=== PATIENT | male | born 1955 | race Caucasian/White ===

== ENCOUNTER 2016-11-07 08:27 | Emergency (ER) | payer MEDICAID, OTHER ==
[~2016-11-07 08:27] MED LIST: ZOFR4TAB3 SL
[2016-11-07 08:29] VITALS: BP 131/75; PULSE 95; RESP 14; TEMP 98.2; O2SAT 98
[2016-11-07 09:18] LABS: AUTOMATED NEUTROPHIL # 5.3 TH/MM3 (1.8-7.7); BASOPHIL # 0.1 TH/MM3 (0-0.2); EOSINOPHIL # 0.1 TH/MM3 (0-0.4); EOSINOPHIL % 1.5 % (0.0-4.0); HEMATOCRIT 39.8 % (39.0-51.0); HEMO FLAGS DIFF FINAL; LYMPH % 21.7 % (9.0-44.0); LYMPHOCYTE # 1.7 TH/MM3 (1.0-4.8); MEAN CELL VOLUME 102.1 FL (80.0-100.0); MEAN CORPUSCULAR HEMOGLOBIN 34.8 PG (27.0-34.0); MEAN CORPUSCULAR HGB CONC 34.1 % (32.0-36.0); NEUT % 67.8 % (16.0-70.0); PLATELET COUNT 211 TH/MM3 (150-450); RED CELL DISTRIBUTION WIDTH 14.2 % (11.6-17.2); WHITE BLOOD COUNT 7.8 TH/MM3 (4.0-11.0)
[2016-11-07] MEDS ORDERED: FAMOTIDINE 20 MG TAB PO ONE (09:30)
[2016-11-07] MEDS ORDERED: ACETAMINOPHEN/HYDROcodone 325 MG/5 MG TAB PO ONE (09:30)
[2016-11-07 09:37] VITALS: BP 165/80; PULSE 77; RESP 16; O2SAT 98
[2016-11-07 09:56] LABS: ALKALINE PHOSPHATASE 122 U/L (45-117); ALT (GPT) 69 U/L (12-78); ANION GAP 7 MEQ/L (5-15); AST (GOT) 109 U/L (15-37); BICARBONATE 25.7 MEQ/L (21.0-32.0); BLOOD UREA NITROGEN 10 MG/DL (7-18); CHLORIDE 104 MEQ/L (98-107); GLOMERULAR FILTRATION RATE 105 ML/MIN (>89); SODIUM (NA) 137 MEQ/L (136-145); TOTAL BILIRUBIN ADULT 1.1 MG/DL (0.2-1.0)
[2016-11-07 09:59] LABS: POTASSIUM 3.8 MEQ/L (3.5-5.1)
[2016-11-07] MEDS ORDERED: ZOFR4TAB PO (10:32)
[2016-11-07] MEDS ORDERED: RANI150T PO (10:32)
--- NOTE | 2016-11-07 10:32 | PD ---
HPI Chief Complaint: GI Complaint Time Seen by Provider: 09:18 Travel History International Travel<30 days: No Contact w/Intl Traveler<30days: No Traveled to known affect area: No History of Present Illness HPI So 61-year-old man, pleasant, history of cirrhosis and pancreatitis, presents emergency Department with upper abdominal pain is been on for the past 3 days or so. He drinks alcohol daily, 8-10 beers a day. He drank half a beer yesterday. She was feeling well. He takes hydrocodone 3 times a day as prescribed by Dr. Diaz. No fevers or chills. No other changes. Symptoms feel like when his had pancreatitis before. History Past Medical History Narrative Medical Cirrhosis Chronic pancreatitis Alcoholism Social History Alcohol Use: Yes (8-10 BEERS DAILY) Tobacco Use: Yes (2 PPD) Allergies-Medications (Allergen,Severity, Reaction): Coded Allergies: *MDRO Multi-Drug Resistant Organism (Verified Allergy, Unknown, 02/02/16) MRSA codeine (Unverified Adverse Reaction, Mild, SWEATS, 10/19/16) Reported Meds & Prescriptions Reported Meds & Active Scripts Active Zofran Odt (Ondansetron Odt) 4 Mg Tab 4 Mg SL Q12HR PRN Review of Systems Except as stated in HPI: all other systems reviewed are Neg Physical Exam Narrative GENERAL: Well-appearing 61 year-old woman, no acute distress. SKIN: Focused skin assessment warm/dry. HEAD: Atraumatic. Normocephalic. EYES: Pupils equal and round. No scleral icterus. No injection or drainage. ENT: No nasal bleeding or discharge. Mucous membranes pink and moist. NECK: Trachea midline. No JVD. CARDIOVASCULAR: Regular rate and rhythm. No murmur appreciated. RESPIRATORY: No accessory muscle use. Clear to auscultation. Breath sounds equal bilaterally. GASTROINTESTINAL: Abdomen is flat and soft. Maybe a little bit full. Moderate epigastric tenderness. MUSCULOSKELETAL: No obvious deformities. No clubbing. No cyanosis. No edema. NEUROLOGICAL: Awake and alert. No obvious cranial nerve deficits. Motor grossly within normal limits. Normal speech. Data Data Last Documented VS Vital Signs Date Time Temp Pulse Resp B/P (MAP) Pulse Ox O2 Delivery O2 Flow Rate FiO2 11/07/16 09:37 77 16 165/80 (108) 98 Room Air 11/07/16 08:29 98.2 Orders Orders Complete Blood Count With Diff (11/07/16 08:38) Comprehensive Metabolic Panel (11/07/16 08:38) Iv Access Insert/Monitor (11/07/16 08:38) Lipase (11/07/16 08:38) Acetamin-Hydrocod 325-5 Mg (Ryder 5-325 (11/07/16 09:30) Famotidine (Pepcid) (11/07/16 09:30) Labs Laboratory Tests Test 11/07/16 08:48 White Blood Count 7.8 TH/MM3 Red Blood Count 3.90 MIL/MM3 Hemoglobin 13.6 GM/DL Hematocrit 39.8 % Mean Corpuscular Volume 102.1 FL Mean Corpuscular Hemoglobin 34.8 PG Mean Corpuscular Hemoglobin Concent 34.1 % Red Cell Distribution Width 14.2 % Platelet Count 211 TH/MM3 Mean Platelet Volume 7.8 FL Neutrophils (%) (Auto) 67.8 % Lymphocytes (%) (Auto) 21.7 % Monocytes (%) (Auto) 8.0 % Eosinophils (%) (Auto) 1.5 % Basophils (%) (Auto) 1.0 % Neutrophils # (Auto) 5.3 TH/MM3 Lymphocytes # (Auto) 1.7 TH/MM3 Monocytes # (Auto) 0.6 TH/MM3 Eosinophils # (Auto) 0.1 TH/MM3 Basophils # (Auto) 0.1 TH/MM3 CBC Comment DIFF FINAL Differential Comment Blood Urea Nitrogen 10 MG/DL Creatinine 0.76 MG/DL Random Glucose 146 MG/DL Total Protein 7.4 GM/DL Albumin 3.4 GM/DL Calcium Level 8.2 MG/DL Alkaline Phosphatase 122 U/L Aspartate Amino Transf (AST/SGOT) 109 U/L Alanine Aminotransferase (ALT/SGPT) 69 U/L Total Bilirubin 1.1 MG/DL Sodium Level 137 MEQ/L Potassium Level 3.8 MEQ/L Chloride Level 104 MEQ/L Carbon Dioxide Level 25.7 MEQ/L Anion Gap 7 MEQ/L Estimat Glomerular Filtration Rate 105 ML/MIN Lipase 3912 U/L [facility] Medical Decision Making Medical Screen Exam Complete: Yes Emergency Medical Condition: Yes Interpretation(s) LABS: CBC is unremarkable CMP with mildly elevated liver tests Lipase is elevated Differential Diagnosis Pancreatitis, gastritis, cholecystitis, SBP, other Narrative Course Medical decision-making this a 61-year-old man, generally well-appearing, presents with epigastric abdominal pain. Lipase is elevated with acute on chronic pancreatitis. May be some element of gastritis as well. Looks overall well. Recommend liquid diet, avoid alcohol, continue pain medications as prescribed by Dr. Diaz, let Zofran and ranitidine. Diagnosis Primary Impression: Acute pancreatitis Additional Instructions: Continue hydrocodone as prescribed by Dr. Diaz. Take ranitidine as prescribed. Use Zofran if needed for nausea or vomiting. Recommend a liquid diet, advance as tolerated as discussed. Follow-up with your primary doctor next 2-4 days. Avoid alcohol. He turned the emergency department for any worsening pain, vomiting, or any other new or worsening symptoms. Med/Other Pt SpecificInfo: Prescription(s) given Scripts Ranitidine (Ranitidine) 150 Mg Tab 150 MG PO BID for Heartburn Management, #60 TAB 0 Refills Prov: Man May MD 11/07/16 Ondansetron (Zofran) 4 Mg Tab 4 MG PO Q8HR Y for NAUSEA OR VOMITING, #20 TAB 0 Refills Prov: Man May MD 11/07/16 Disposition: 01 DISCHARGE HOME Condition: Stable Man May MD Nov 07, 2016 10:32
== END 2016-11-07 10:52 | disposition home or self-care (01) ==
LOC: NEPD 08:27
DX: K85.90 Acute pancreatitis without necrosis or infection, unspecified (principal); K74.60 Unspecified cirrhosis of liver
CPT/HCPCS: 80053; 83690; 85025; 99284

== ENCOUNTER 2017-08-19 04:53 | Inpatient (IN) | payer OTHER, MEDICAID, MEDICARE ==
[2017-08-19] VITALS (8 sets, daily range): BP systolic 130–190; BP diastolic 67–98; PULSE 71–86; RESP 17–20; TEMP 97.8–98.3; O2SAT 96–98
[~2017-08-19] VITALS: Ht 170.2 cm; Wt 60.0 kg
[~2017-08-19 04:53] MED LIST changes: +RANI150T PO; +ZOFR4TAB PO
[2017-08-19] MEDS ORDERED: HYDR-3580 PO (04:58)
[2017-08-19] MEDS ORDERED: METOCLOPRAMIDE HCL 10 MG/2 ML VIAL IV PUSH ONE (05:30)
[2017-08-19] MEDS ORDERED: MORPHINE SULFATE 4 MG/ML INJ IV PUSH ONE (05:30)
[2017-08-19 05:48] LABS: AUTOMATED NEUTROPHIL # 7.1 TH/MM3 (1.8-7.7); BASOPHIL # 0.1 TH/MM3 (0-0.2); BASOPHIL % 0.6 % (0.0-2.0); EOSINOPHIL # 0.2 TH/MM3 (0-0.4); EOSINOPHIL % 1.7 % (0.0-4.0); HEMATOCRIT 43.7 % (39.0-51.0); HEMOGLOBIN 15.1 GM/DL (13.0-17.0); LYMPH % 15.4 % (9.0-44.0); LYMPHOCYTE # 1.5 TH/MM3 (1.0-4.8); MEAN CELL VOLUME 98.5 FL (80.0-100.0); MEAN CORPUSCULAR HGB CONC 34.5 % (32.0-36.0); MEAN PLATELET VOLUME 8.6 FL (7.0-11.0); MONO % 8.1 % (0.0-8.0); MONOCYTE # 0.8 TH/MM3 (0-0.9); NEUT % 74.2 % (16.0-70.0); PLATELET COUNT 257 TH/MM3 (150-450); RED BLOOD COUNT 4.44 MIL/MM3 (4.50-5.90); RED CELL DISTRIBUTION WIDTH 13.7 % (11.6-17.2); WHITE BLOOD COUNT 9.6 TH/MM3 (4.0-11.0)
[2017-08-19 05:57] LABS: INTERNATIONAL NORMALIZED RATIO 1.1 RATIO; PROTHROMBIN TIME - PATIENT 11.4 SEC (9.8-11.6)
[2017-08-19 06:09] LABS: ALBUMIN 3.8 GM/DL (3.4-5.0); AST (GOT) 52 U/L (15-37); BICARBONATE 21.6 MEQ/L (21.0-32.0); BLOOD UREA NITROGEN 10 MG/DL (7-18); CHLORIDE 105 MEQ/L (98-107); CREATININE 0.76 MG/DL (0.60-1.30); GLUCOSE,RANDOM 110 MG/DL (74-106); SODIUM (NA) 139 MEQ/L (136-145)
[2017-08-19 06:10] LABS: ALT (GPT) 45 U/L (12-78)
[2017-08-19 06:12] LABS: ALKALINE PHOSPHATASE 105 U/L (45-117); TOTAL PROTEIN 7.6 GM/DL (6.4-8.2)
[2017-08-19] MEDS ORDERED: IOHEXOL 350 MG/ML 10 ML VIAL (for RAD DIAG) IVCONTRAST ONE (06:40)
--- NOTE | 2017-08-19 06:55 | RADRPT ---
EXAM DATE: 08/19/2017 6:39 AM EDT AGE/SEX: 62 years / Male INDICATIONS: Epigastric abdominal pain with nausea. CLINICAL DATA: This is the patient's initial encounter. Patient reports that signs and symptoms have been present for 3 days and indicates a pain score of 10/10. MEDICAL/SURGICAL HISTORY: Cirrhosis. Hepatitis C. Renal calculi. Pancreatitis. COPD. None. ORAL CONTRAST: No oral contrast ingested. RADIATION DOSE: 6.64 CTDI (mGy) COMPARISON: [facility] [place], CT ABDOMEN & PELVIS W CONTRAST, 02/02/2016. . TECHNIQUE: Multiple contiguous axial images were obtained through the abdomen and pelvis following b olus infusion of 100 ml Omnipaque 350 (iohexol) nonionic water-soluble contrast as a single exam do se. No oral contrast ingested. Using automated exposure control and adjustment of the mA and/or kV a ccording to patient size, the radiation dose was kept as low as reasonably achievable to obtain optim al diagnostic quality images. FINDINGS: Lower Lungs: There is minimal suspected atelectasis at the posterior lateral right lower lobe. Liver: The liver has a homogeneous density without space-occupying lesion. There is no dilation of th e biliary tree. Spleen: Homogeneous density without enlargement. Pancreas: There are calcifications seen at the uncinate process and pancreatic head. There is a 1.2 cm cystic area seen in the pancreatic head. This may be secondary to focal dilatation pancreatic duct . There is also a 2.9 cm cyst at the anterior pancreatic body. Both these areas appear new. The pancr eatic duct is dilated measuring up to 7 mm. There is induration seen around the pancreas. Kidneys: Both kidneys demonstrate enhancement. There do appear to be areas of cortical thinning at t he superior aspects of the kidneys. Renal cyst are seen bilaterally with the largest cyst seen at the anterior inferior left kidney measuring 2 cm in diameter. Adrenal Glands: Unremarkable. Aorta: There are scattered arterial calcifications. No aneurysm is seen. Bowel/Mesentery: There is a normal amount of ascites seen around the liver margin. Significantly dil ated or thickened bowel is not seen. There are a few scattered sigmoid colon diverticula. Abdominal Wall: There is a small umbilical hernia containing mesenteric fat. Retroperitoneum: Mildly prominent lymph nodes are seen in the left retroperitoneum in the periaortic region. These are unchanged from the prior exam. These measure up to 1.2 cm. Bladder: Contours are smooth. Reproductive Organs: Prostatic calcifications are present. Inguinal: The inguinal region is unremarkable without evidence of adenopathy. Bony Structures: There is degenerative change in the lumbar spine. CONCLUSION: Induration around the pancreas concerning for acute pancreatitis. There is calcification pancreatic h ead and uncinate process likely from chronic pancreatitis. There is cystic area in the pancreatic hea d and uncinate process potentially related to pseudocyst. There is dilatation of pancreatic duct. Electronically signed by: Juan Manuel Chung MD 08/19/2017 6:54 AM EDT
--- NOTE | 2017-08-19 07:06 | PD ---
HPI Chief Complaint: Abdominal Pain Time Seen by Provider: 05:16 Travel History International Travel<30 days: No Contact w/Intl Traveler<30days: No Traveled to known affect area: No History of Present Illness HPI 62-year-old male presents the emergency department the abdominal pain. Symptoms began 2 days ago and have worsened over the last 24 hours. Patient with a history of alcoholism cirrhosis and hepatitis C. He continues to drink alcohol daily. He denies fever or other symptoms at this time. Patient reports one episode of vomiting. PFSH Past Medical History Arthritis: Yes (Lower back,deteriorating disk.) Asthma: No Autoimmune Disease: No Anxiety: Yes Depression: Yes ( ) Heart Rhythm Problems: No Cancer: No Cardiovascular Problems: No High Cholesterol: No Chemotherapy: No Chest Pain: No Congestive Heart Failure: No Cirrhosis: Yes COPD: Yes Cerebrovascular Accident: No Diminished Hearing: Yes (DEAF RIGHT EAR) Endocrine: No Gastrointestinal Disorders: Yes (CIRROSIS, HEPATITIS C) GERD: No Genitourinary: Yes Headaches: No Hepatitis: Yes (C) Hiatal Hernia: No Immune Disorder: No Kidney Stones: Yes Musculoskeletal: Yes Neurologic: Yes (SPINAL STENOSIS, VERTEBRAE TORN, TORN ROTATOR CUFF RIGHT) Psychiatric: No Reproductive: No Respiratory: Yes Integumentary: Yes (HX MRSA KNEE) Immunizations Current: Yes Migraines: No Pancreatitis: Yes Radiation Therapy: No Renal Failure: No Seizures: No Sickle Cell Disease: No Sleep Apnea: No Ulcer: No Tetanus Vaccination: < 5 Years Influenza Vaccination: No Past Surgical History Abdominal Surgery: No Cardiac Surgery: No Ear Surgery: No Eye Surgery: No Genitourinary Surgery: No Oral Surgery: Yes Thoracic Surgery: No Other Surgery: Yes (Oral surgery) Social History Alcohol Use: Yes (8-10 BEERS DAILY) Tobacco Use: Yes (2 PPD) Substance Use: Yes (marijuana occ) Allergies-Medications (Allergen,Severity, Reaction): Coded Allergies: *MDRO Multi-Drug Resistant Organism (Verified Allergy, Unknown, 08/19/17) MRSA codeine (Unverified Adverse Reaction, Mild, SWEATS, 08/19/17) Reported Meds & Prescriptions Reported Meds & Active Scripts Active Reported Hydrocodone-Acetaminophen 7.5 Mg-325 Mg Tab 1 Tab PO Q4H PRN Review of Systems Except as stated in HPI: all other systems reviewed are Neg General / Constitutional: No: Fever, Chills Gastrointestinal: Positive: Vomiting, Abdominal Pain, No: Nausea, Diarrhea Neurologic: No: Weakness, Dizziness, Syncope Physical Exam Narrative GENERAL: 62-year-old male in mild distress secondary to pain SKIN: Focused skin assessment warm/dry. HEAD: Atraumatic. Normocephalic. EYES: Pupils equal and round. No scleral icterus. No injection or drainage. ENT: No nasal bleeding or discharge. Mucous membranes pink and moist. NECK: Trachea midline. No JVD. CARDIOVASCULAR: Regular rate and rhythm. No murmur appreciated. RESPIRATORY: No accessory muscle use. Clear to auscultation. Breath sounds equal bilaterally. GASTROINTESTINAL: Abdomen soft, nonlocalizing tenderness but seems to be most tender in the epigastric and left upper quadrant Data Data Last Documented VS Vital Signs Date Time Temp Pulse Resp B/P (MAP) Pulse Ox O2 Delivery O2 Flow Rate FiO2 08/19/17 04:56 98.3 78 20 190/89 (122) 98 Orders Orders Complete Blood Count With Diff (08/19/17 05:16) Comprehensive Metabolic Panel (08/19/17 05:16) Lipase (08/19/17 05:16) Ct Abd/Pel W Iv Contrast(Rout) (08/19/17 ) Act Partial Throm Time (Ptt) (08/19/17 05:16) Prothrombin Time / Inr (Pt) (08/19/17 05:16) Morphine Inj (Morphine Inj) (08/19/17 05:30) Metoclopramide Inj (Reglan Inj) (08/19/17 05:30) Iohexol 350 Inj (Omnipaque 350 Inj) (08/19/17 06:40) Labs Laboratory Tests Test 08/19/17 05:25 08/19/17 05:29 Prothrombin Time 11.4 SEC Prothromb Time International Ratio 1.1 RATIO Activated Partial Thromboplast Time 23.8 SEC White Blood Count 9.6 TH/MM3 Red Blood Count 4.44 MIL/MM3 Hemoglobin 15.1 GM/DL Hematocrit 43.7 % Mean Corpuscular Volume 98.5 FL Mean Corpuscular Hemoglobin 34.0 PG Mean Corpuscular Hemoglobin Concent 34.5 % Red Cell Distribution Width 13.7 % Platelet Count 257 TH/MM3 Mean Platelet Volume 8.6 FL Neutrophils (%) (Auto) 74.2 % Lymphocytes (%) (Auto) 15.4 % Monocytes (%) (Auto) 8.1 % Eosinophils (%) (Auto) 1.7 % Basophils (%) (Auto) 0.6 % Neutrophils # (Auto) 7.1 TH/MM3 Lymphocytes # (Auto) 1.5 TH/MM3 Monocytes # (Auto) 0.8 TH/MM3 Eosinophils # (Auto) 0.2 TH/MM3 Basophils # (Auto) 0.1 TH/MM3 CBC Comment DIFF FINAL Differential Comment Blood Urea Nitrogen 10 MG/DL Creatinine 0.76 MG/DL Random Glucose 110 MG/DL Total Protein 7.6 GM/DL Albumin 3.8 GM/DL Calcium Level 9.0 MG/DL Alkaline Phosphatase 105 U/L Aspartate Amino Transf (AST/SGOT) 52 U/L Alanine Aminotransferase (ALT/SGPT) 45 U/L Total Bilirubin 1.0 MG/DL Sodium Level 139 MEQ/L Potassium Level 3.4 MEQ/L Chloride Level 105 MEQ/L Carbon Dioxide Level 21.6 MEQ/L Anion Gap 12 MEQ/L Lipase 7991 U/L [facility] Medical Decision Making Medical Screen Exam Complete: Yes Emergency Medical Condition: Yes Differential Diagnosis Pancreatitis Narrative Course Patient was seen and evaluated in the emergency department CT was positive for acute pancreatitis and labs showed a lipase level of 7990. Patient was admitted for further evaluation and treatment Diagnosis Primary Impression: Acute pancreatitis Qualified Codes: K85.20 - Alcohol induced acute pancreatitis without necrosis or infection Admitting Information Admitting Physician Requests: Observation Condition: Stable Arminda Hamilton DO Aug 19, 2017 07:05
--- NOTE | 2017-08-19 07:10 | PD ---
HPI Chief Complaint: Abdominal Pain Time Seen by Provider: 05:16 Travel History International Travel<30 days: No Contact w/Intl Traveler<30days: No Traveled to known affect area: No History of Present Illness HPI Patient is a 62-year-old male with history of cirrhosis and pancreatitis. He presents to the emergency department complaining of upper abdominal pain. Symptoms have been present for the last 2 days. He came to the ER because of worsening and one episode of vomiting prior to arrival. Patient continues to drink alcohol PFSH Past Medical History Arthritis: Yes (Lower back,deteriorating disk.) Asthma: No Autoimmune Disease: No Anxiety: Yes Depression: Yes ( ) Heart Rhythm Problems: No Cancer: No Cardiovascular Problems: No High Cholesterol: No Chemotherapy: No Chest Pain: No Congestive Heart Failure: No Cirrhosis: Yes COPD: Yes Cerebrovascular Accident: No Diminished Hearing: Yes (DEAF RIGHT EAR) Endocrine: No Gastrointestinal Disorders: Yes (CIRROSIS, HEPATITIS C) GERD: No Genitourinary: Yes Headaches: No Hepatitis: Yes (C) Hiatal Hernia: No Immune Disorder: No Kidney Stones: Yes Musculoskeletal: Yes Neurologic: Yes (SPINAL STENOSIS, VERTEBRAE TORN, TORN ROTATOR CUFF RIGHT) Psychiatric: No Reproductive: No Respiratory: Yes Integumentary: Yes (HX MRSA KNEE) Immunizations Current: Yes Migraines: No Pancreatitis: Yes Radiation Therapy: No Renal Failure: No Seizures: No Sickle Cell Disease: No Sleep Apnea: No Ulcer: No Tetanus Vaccination: < 5 Years Influenza Vaccination: No Past Surgical History Abdominal Surgery: No Cardiac Surgery: No Ear Surgery: No Eye Surgery: No Genitourinary Surgery: No Oral Surgery: Yes Thoracic Surgery: No Other Surgery: Yes (Oral surgery) Social History Alcohol Use: Yes (8-10 BEERS DAILY) Tobacco Use: Yes (2 PPD) Substance Use: Yes (marijuana occ) Allergies-Medications (Allergen,Severity, Reaction): Coded Allergies: *MDRO Multi-Drug Resistant Organism (Verified Allergy, Unknown, 08/19/17) MRSA codeine (Unverified Adverse Reaction, Mild, SWEATS, 08/19/17) Reported Meds & Prescriptions Reported Meds & Active Scripts Active Reported Hydrocodone-Acetaminophen 7.5 Mg-325 Mg Tab 1 Tab PO Q4H PRN Review of Systems Except as stated in HPI: all other systems reviewed are Neg General / Constitutional: No: Fever, Chills Eyes: No: Diploplia, Blurred Vision HENT: No: Headaches, Vertigo Gastrointestinal: Positive: Vomiting, Abdominal Pain Genitourinary: No: Urgency, Frequency Skin: No Rash Physical Exam Narrative GENERAL: 62 M in no distress SKIN: Focused skin assessment warm/dry. HEAD: Atraumatic. Normocephalic. EYES: Pupils equal and round. No scleral icterus. No injection or drainage. ENT: No nasal bleeding or discharge. Mucous membranes pink and moist. NECK: Trachea midline. No JVD. CARDIOVASCULAR: Regular rate and rhythm. No murmur appreciated. RESPIRATORY: No accessory muscle use. Clear to auscultation. Breath sounds equal bilaterally. GASTROINTESTINAL: Abdomen soft, minimal tenderness (non-localizing), nondistended. Data Data Last Documented VS Vital Signs Date Time Temp Pulse Resp B/P (MAP) Pulse Ox O2 Delivery O2 Flow Rate FiO2 08/19/17 04:56 98.3 78 20 190/89 (122) 98 Orders Orders Complete Blood Count With Diff (08/19/17 05:16) Comprehensive Metabolic Panel (08/19/17 05:16) Lipase (08/19/17 05:16) Ct Abd/Pel W Iv Contrast(Rout) (08/19/17 ) Act Partial Throm Time (Ptt) (08/19/17 05:16) Prothrombin Time / Inr (Pt) (08/19/17 05:16) Morphine Inj (Morphine Inj) (08/19/17 05:30) Metoclopramide Inj (Reglan Inj) (08/19/17 05:30) Labs Laboratory Tests Test 08/19/17 05:25 08/19/17 05:29 Prothrombin Time 11.4 SEC Prothromb Time International Ratio 1.1 RATIO Activated Partial Thromboplast Time 23.8 SEC White Blood Count 9.6 TH/MM3 Red Blood Count 4.44 MIL/MM3 Hemoglobin 15.1 GM/DL Hematocrit 43.7 % Mean Corpuscular Volume 98.5 FL Mean Corpuscular Hemoglobin 34.0 PG Mean Corpuscular Hemoglobin Concent 34.5 % Red Cell Distribution Width 13.7 % Platelet Count 257 TH/MM3 Mean Platelet Volume 8.6 FL Neutrophils (%) (Auto) 74.2 % Lymphocytes (%) (Auto) 15.4 % Monocytes (%) (Auto) 8.1 % Eosinophils (%) (Auto) 1.7 % Basophils (%) (Auto) 0.6 % Neutrophils # (Auto) 7.1 TH/MM3 Lymphocytes # (Auto) 1.5 TH/MM3 Monocytes # (Auto) 0.8 TH/MM3 Eosinophils # (Auto) 0.2 TH/MM3 Basophils # (Auto) 0.1 TH/MM3 CBC Comment DIFF FINAL Differential Comment Arminda Hamilton DO Aug 19, 2017 07:10
[2017-08-19] MEDS ORDERED: SENNOSIDES 8.6 MG TAB PO PRN (07:30)
[2017-08-19] MEDS ORDERED: BISACODYL 10 MG SUPP RECTAL PRN (07:30)
[2017-08-19] MEDS ORDERED: LACTULOSE SYRUP 20 GM/30 ML CUP PO PRN (07:30)
[2017-08-19] MEDS ORDERED: ONDANSETRON HCL 4 MG/2 ML VIAL IVP PRN (07:30)
[2017-08-19] MEDS ORDERED: NALOXONE HCL 0.4 MG/ML AMP IV PUSH PRN ×2 (07:30→10:30)
[2017-08-19] MEDS ORDERED: MAGNESIUM HYDROXIDE SUSP 30 ML CUP PO PRN (07:30)
[2017-08-19] MEDS ORDERED: SODIUM CHLORIDE 0.9% FLUSH 10 ML FLUSH IV FLUSH PRN (07:30)
[2017-08-19] MEDS: LACTATED RINGER'S 1000 ML INJ 1,000 ML IV SCH ×3 (07:50→13:29)
[2017-08-19] MEDS: SODIUM CHLORIDE 0.9% FLUSH 10 ML FLUSH IV FLUSH SCH ×2 (07:50→20:04)
--- NOTE | 2017-08-19 09:59 | PD.CONS ---
HPI History of Present Illness This is a 62 year old male who entered the hospital on 08/19/2017 with uncontrolled abdominal pain located in the mid upper and right upper quadrant region. Onset of pain 2 days ago with associated nausea and vomiting worsened over the past 24 hours. Patient is familiar with this pain and states that he has had a diagnosis of pancreatitis 5 different times last hospital stay was greater than 1 year ago. Patient does admit to daily alcohol consumption 8-10 beers a day. Patient also has a history of constipation secondary to pain meds for his back and neck. He is currently resting in the bed awake and able to answer simple questions. Currently patient denies any diarrhea, no dysphasia no fever no chills. Current labs show hemoglobin 15.1, AST 52, ALT 45, lipase level 7991, PT/INR 1.1. Patient denies any history of EGD or colonoscopy, but he does note positive family history of colon cancer brother at 59 years old. Patient also notes he has elevated blood pressure issues when he takes morphine. CT scan performed on 08/19/2017 did show induration around the pancreas concerning for acute pancreatitis. There is calcification at the pancreatic head likely from chronic pancreatitis. Cystic area at the pancreatic head potentially related to pseudocyst and dilation of the pancreatic duct. (Rafaela Corral) PFSH Past Medical History Alcohol intake daily Spinal stenosis Right torn rotator cuff Kidney stones Hep C Cirrhosis MRSA knee Previous pancreatitis Past Surgical History Oral surgery according to the record (Rafaela Corral) Coded Allergies: *MDRO Multi-Drug Resistant Organism (Verified Allergy, Unknown, 08/19/17) MRSA codeine (Unverified Adverse Reaction, Mild, SWEATS, 08/19/17) Medications Administered Medications Medications (Trade) Dose Ordered Sig/Artur Route PRN Reason Start Time Stop Time Status Last Admin Dose Admin Lactated Ringer's 1,000 ml @ 100 mls/hr Q10H IV 08/19/17 07:28 08/19/17 07:50 Sodium Chloride (NS Flush) 2 ml BID IV FLUSH 08/19/17 09:00 08/19/17 07:50 Family History Positive family history of colon cancer brother in his 50s Social History Long-term tobacco use 1-2 packs a day Daily alcohol consumption 8-10 beers a day long-term Occasional marijuana (Rafaela Corral) Review of Systems Gastrointestinal: COMPLAINS OF: Abdominal pain, Nausea (Rafaela Corral) GI Exam Vitals I&O Vital Signs Date Time Temp Pulse Resp B/P (MAP) Pulse Ox O2 Delivery O2 Flow Rate FiO2 08/19/17 08:45 98.2 74 18 172/93 (119) 97 08/19/17 08:07 97.8 76 16 130/72 (91) 98 08/19/17 07:20 97.8 86 17 136/67 (90) 98 Room Air 08/19/17 07:20 17 08/19/17 04:56 98.3 78 20 190/89 (122) 98 Imaging Last Impressions Abdomen/Pelvis CT 08/19/17 0000 Signed Impressions: CONCLUSION: Induration around the pancreas concerning for acute pancreatitis. There is calc ification pancreatic head and uncinate process likely from chronic pancreatitis . There is cystic area in the pancreatic head and uncinate process potentially related to pseudocyst. There is dilatation of pancreatic duct. Laboratory Test 08/19/17 05:25 08/19/17 05:29 Prothrombin Time 11.4 SEC Prothromb Time International Ratio 1.1 RATIO Activated Partial Thromboplast Time 23.8 SEC White Blood Count 9.6 TH/MM3 Red Blood Count 4.44 MIL/MM3 Hemoglobin 15.1 GM/DL Hematocrit 43.7 % Mean Corpuscular Volume 98.5 FL Mean Corpuscular Hemoglobin 34.0 PG Mean Corpuscular Hemoglobin Concent 34.5 % Red Cell Distribution Width 13.7 % Platelet Count 257 TH/MM3 Mean Platelet Volume 8.6 FL Neutrophils (%) (Auto) 74.2 % Lymphocytes (%) (Auto) 15.4 % Monocytes (%) (Auto) 8.1 % Eosinophils (%) (Auto) 1.7 % Basophils (%) (Auto) 0.6 % Neutrophils # (Auto) 7.1 TH/MM3 Lymphocytes # (Auto) 1.5 TH/MM3 Monocytes # (Auto) 0.8 TH/MM3 Eosinophils # (Auto) 0.2 TH/MM3 Basophils # (Auto) 0.1 TH/MM3 CBC Comment DIFF FINAL Differential Comment Blood Urea Nitrogen 10 MG/DL Creatinine 0.76 MG/DL Random Glucose 110 MG/DL Total Protein 7.6 GM/DL Albumin 3.8 GM/DL Calcium Level 9.0 MG/DL Alkaline Phosphatase 105 U/L Aspartate Amino Transf (AST/SGOT) 52 U/L Alanine Aminotransferase (ALT/SGPT) 45 U/L Total Bilirubin 1.0 MG/DL Sodium Level 139 MEQ/L Potassium Level 3.4 MEQ/L Chloride Level 105 MEQ/L Carbon Dioxide Level 21.6 MEQ/L Anion Gap 12 MEQ/L Lipase 7991 U/L Physical Examination HEENT: [place], leisa complexion normocephalic; atraumatic; NECK: Neck is supple, no JVD, no lymphadenopathy. CHEST: Mild diminished breath sounds no obvious rhonchi CARDIAC: Regular rate and rhythm ABDOMEN: Round, taut, mid upper abdomen and right upper quadrant discomfort; + palpable hepatosplenomegaly; bowel sounds are present in all four quadrants. EXTREMITIES: No clubbing, cyanosis, or edema. 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 CT scan shows acute pancreatitis, with possible pseudocyst. Patient has history of chronic pancreatitis with last hospital stay greater than 1 year ago. Patient consumes daily alcohol 8-10 beers a day does note occasional marijuana smoking and long- term tobacco dependence 1-2 packs a day. He has no previous history of EGD or colonoscopy but does have a positive family history with brother dying at 59 years old of colon cancer. Current labs show hemoglobin 15.1, AST 52, ALT 45, lipase level 7991, PT/INR 1.1. Patient's elevated AST level is probably secondary to alcohol and he does have a history of cirrhosis. Notes chronic constipation related to back and neck and he is chronic pain meds. CT scan shows induration around the pancreas concerning for acute pancreatitis and likely has signs of chronic pancreatitis. There is a cystic area around the pancreatic head , possible pseudocyst and dilation of the pancreatic duct. Discussed with patient the need for colonoscopy after he is feeling better and follow-up with GI on an outpatient basis. Plan Diet n.p.o. for now IV hydration Pain meds per attending Anti-medics Daily bowel regimen meds and monitor constipation. Discussed alcohol abstinence Further recommendations to follow Patient was seen per myself and Dr. Machuca, this note was written on his behalf (Rafaela Corral) Physician Comments Seen and examined, plan as lined up Known to our service with history of recurrent alcohol induced pancreatitis. Supportive care, hydration, IVF and bowel rest. Will follow up with you. (Rita Machuca MD) Rafaela Corral Aug 19, 2017 09:59 Rita Machuca MD Aug 19, 2017 23:16
[2017-08-19] MEDS ORDERED: ACETAMINOPHEN/HYDROcodone 325 MG/5 MG TAB PO PRN (10:30)
[2017-08-19] MEDS ORDERED: THIAMINE HCL 100 MG TAB PO ONE (10:30)
[2017-08-19] MEDS ORDERED: LORazepam 2 MG TAB PO PRN (10:30)
[2017-08-19] MEDS ORDERED: RESP: ALBUTEROL 2.5 MG/IPRATROPIUM 0.5 MG NEB (PRN) NEB (10:30)
[2017-08-19] MEDS ORDERED: LORazepam 2 MG/ML VIAL IV PUSH PRN ×4 (10:30)
[2017-08-19] MEDS ORDERED: FLUMAZENIL 0.5 MG/5 ML VIAL IV PUSH PRN (10:30)
[2017-08-19] MEDS ORDERED: ACETAMINOPHEN/HYDROcodone 325 MG/7.5 MG TAB PO PRN (10:30)
[2017-08-19] MEDS ORDERED: MORPHINE SULFATE 4 MG/ML INJ IV PUSH PRN ×2 (10:30)
--- NOTE | 2017-08-19 10:30 | HHI.HP ---
HPI Service [facility] Primary Care Physician Unknown Admission Diagnosis Acute Pancreatitis Diagnoses: Travel History International Travel<30 Days: No Contact w/Intl Traveler <30 Da: No Traveled to Known Affected Are: No History of Present Illness 62-year-old male with a history of chronic alcohol abuse, pancreatitis, 60-pack- year smoking history who presents with a 2 day history of constant sharp epigastric pain radiating to the back with no exacerbating or relieving factors. He reports some nausea but no vomiting. Denies any fevers, chills, chest pain, shortness of breath. He has not had a bowel movement in the past 4 days, however has not had much of an appetite either. Review of Systems Except as stated in HPI: all other systems reviewed are Neg Past Family Social History Past Medical History Alcohol intake daily Spinal stenosis Right torn rotator cuff Kidney stones Hep C Cirrhosis MRSA knee Previous pancreatitis Chronic alcohol abuse. COPD Past Surgical History Oral surgery according to the record Denies any other surgeries. Reported Medications Reported Meds & Active Scripts Active Reported Hydrocodone-Acetaminophen 7.5 Mg-325 Mg Tab 1 Tab PO Q4H PRN Allergies: Coded Allergies: *MDRO Multi-Drug Resistant Organism (Verified Allergy, Unknown, 08/19/17) MRSA codeine (Unverified Adverse Reaction, Mild, SWEATS, 08/19/17) Family History Positive family history of colon cancer brother in his 50s Reports both parents are healthy Social History Long-term tobacco use 1-2 packs a day for 40 years Daily alcohol consumption 8-10 beers a day long-term Occasional marijuana. Patient denies any other illicit drug Physical Exam Vital Signs Vital Signs Date Time Temp Pulse Resp B/P (MAP) Pulse Ox O2 Delivery O2 Flow Rate FiO2 08/19/17 08:45 98.2 74 18 172/93 (119) 97 08/19/17 08:07 97.8 76 16 130/72 (91) 98 08/19/17 07:20 97.8 86 17 136/67 (90) 98 Room Air 08/19/17 07:20 17 08/19/17 04:56 98.3 78 20 190/89 (122) 98 Physical Exam GENERAL: This is a well-nourished, well-developed patient, in no apparent distress. Alert and oriented 3. SKIN: No rashes, ecchymoses or lesions. Cool and dry. HEAD: Atraumatic. Normocephalic. No temporal or scalp tenderness. EYES: Pupils equal round and reactive. Extraocular motions intact. No scleral icterus. No injection or drainage. ENT: Nose without bleeding, purulent drainage or septal hematoma. Throat without erythema, tonsillar hypertrophy or exudate. Uvula midline. Airway patent. NECK: Trachea midline. No JVD or lymphadenopathy. Supple, nontender, no meningeal signs. CARDIOVASCULAR: Regular rate and rhythm without murmurs, gallops, or rubs. RESPIRATORY: Clear to auscultation. Breath sounds equal bilaterally. No wheezes , rales, or rhonchi. GASTROINTESTINAL: Abdomen soft, tender to moderate palpation. No rebound or guarding. Positive bowel sounds. MUSCULOSKELETAL: Extremities without clubbing, cyanosis, or edema. No joint tenderness, effusion, or edema noted. No calf tenderness. Negative Homans sign bilaterally. NEUROLOGICAL: Awake and alert. Cranial nerves II through XII intact. Motor and sensory grossly within normal limits. Five out of 5 muscle strength in all muscle groups. Normal speech. Laboratory Laboratory Tests Test 08/19/17 05:25 08/19/17 05:29 Prothrombin Time 11.4 Prothromb Time International Ratio 1.1 Activated Partial Thromboplast Time 23.8 White Blood Count 9.6 Red Blood Count 4.44 Hemoglobin 15.1 Hematocrit 43.7 Mean Corpuscular Volume 98.5 Mean Corpuscular Hemoglobin 34.0 Mean Corpuscular Hemoglobin Concent 34.5 Red Cell Distribution Width 13.7 Platelet Count 257 Mean Platelet Volume 8.6 Neutrophils (%) (Auto) 74.2 Lymphocytes (%) (Auto) 15.4 Monocytes (%) (Auto) 8.1 Eosinophils (%) (Auto) 1.7 Basophils (%) (Auto) 0.6 Neutrophils # (Auto) 7.1 Lymphocytes # (Auto) 1.5 Monocytes # (Auto) 0.8 Eosinophils # (Auto) 0.2 Basophils # (Auto) 0.1 CBC Comment DIFF FINAL Differential Comment Blood Urea Nitrogen 10 Creatinine 0.76 Random Glucose 110 Total Protein 7.6 Albumin 3.8 Calcium Level 9.0 Alkaline Phosphatase 105 Aspartate Amino Transf (AST/SGOT) 52 Alanine Aminotransferase (ALT/SGPT) 45 Total Bilirubin 1.0 Sodium Level 139 Potassium Level 3.4 Chloride Level 105 Carbon Dioxide Level 21.6 Anion Gap 12 Lipase 7991 Result Diagram: 08/19/1752808/19/17528 Caprini VTE Risk Assessment Caprini VTE Risk Assessment: Mod/High Risk (score >= 2) Caprini Risk Assessment Model Point Value = 1 Point Value = 2 Point Value = 3 Point Value = 5 Age 41-60 Minor surgery BMI > 25 kg/m2 Swollen legs Varicose veins or History of unexplained or recurrent spontaneous Oral contraceptives or hormone replacement Sepsis (< 1 month) Serious lung disease, including pneumonia (< 1 month) Abnormal pulmonary function Acute myocardial infarction Congestive heart failure (< 1 month) History of inflammatory bowel disease Medical patient at bed rest Age 61-74 Arthroscopic surgery Major open surgery (> 45 min) Laparoscopic surgery (> 45 min) Malignancy Confined to bed (> 72 hours) Immobilizing plaster cast Central venous access Age >= 75 History of VTE Family history of VTE Factor V Leiden Prothrombin [id number] Lupus anticoagulant Anticardiolipin antibodies Elevated serum homocysteine Heparin-induced thrombocytopenia Other congenital or acquired thrombophilia Stroke (< 1 month) Elective arthroplasty Hip, pelvis, or leg fracture Acute spinal cord injury (< 1 month) Prophylaxis Regimen Total Risk Factor Score Risk Level Prophylaxis Regimen 0-1 Low Early ambulation 2 Moderate Order ONE of the following: *Sequential Compression Device (SCD) *Heparin 5000 units SQ BID 3-4 Higher Order ONE of the following medications: *Heparin 5000 units SQ TID *Enoxaparin/Lovenox 40 mg SQ daily (WT < 150 kg, CrCl > 30 mL/min) *Enoxaparin/Lovenox 30 mg SQ daily (WT < 150 kg, CrCl > 10-29 mL/min) *Enoxaparin/Lovenox 30 mg SQ BID (WT < 150 kg, CrCl > 30 mL/min) AND/OR *Sequential Compression Device (SCD) 5 or more Highest Order ONE of the following medications: *Heparin 5000 units SQ TID (Preferred with Epidurals) *Enoxaparin/Lovenox 40 mg SQ daily (WT < 150 kg, CrCl > 30 mL/min) *Enoxaparin/Lovenox 30 mg SQ daily (WT < 150 kg, CrCl > 10-29 mL/min) *Enoxaparin/Lovenox 30 mg SQ BID (WT < 150 kg, CrCl > 30 mL/min) AND *Sequential Compression Device (SCD) Assessment and Plan Assessment and Plan //Acute on chronic pancreatitis = Lipase 8000. Imaging as above with CT showing dilated common bile duct Aggressive IV fluid replacement. Pain control Consult gastroenterology. Patient is n.p.o. //Chronic alcohol abuse //Alcohol withdrawal CIWA protocol. Thiamine. Cessation counseling provided. //Chronic pain. Patient requesting Dilaudid. Will try to minimize narcotics as possible. //COPD. Chronic. Duo nebs as needed //Chronic tobacco use. Cessation counseling provided. Discussed Condition With Patient, nurse, ED physician Physician Certification 2 Midnight Certification Type: Admission for Inpatient Services Order for Inpatient Services The services are ordered in accordance with Medicare regulations or non- Medicare payer requirements, as applicable. In the case of services not specified as inpatient-only, they are appropriately provided as inpatient services in accordance with the 2-midnight benchmark. Estimated LOS (days): 3 days is the estimated time the patient will need to remain in the hospital, assuming treatment plan goals are met and no additional complications. Post-Hospital Plan: Home Angel Ponce MD Aug 19, 2017 10:30
[2017-08-19] MEDS: MORPHINE SULFATE 4 MG/ML INJ IV PUSH PRN ×3 (11:05→20:09)
[2017-08-19] MEDS: LORazepam 1 MG TAB PO PRN (16:06)
[2017-08-20] MEDS: LACTATED RINGER'S 1000 ML INJ 1,000 ML IV SCH ×3 (01:12→07:38)
[2017-08-20] MEDS: MORPHINE SULFATE 4 MG/ML INJ IV PUSH PRN ×2 (01:13→08:57)
[2017-08-20] MEDS: SODIUM CHLORIDE 0.9% FLUSH 10 ML FLUSH IV FLUSH SCH (07:38)
[2017-08-20 08:00] VITALS: BP 120/69; PULSE 67; RESP 15; TEMP 97.8; O2SAT 94
[2017-08-20 08:14] LABS: AUTOMATED NEUTROPHIL # 4.2 TH/MM3 (1.8-7.7); BASOPHIL # 0.1 TH/MM3 (0-0.2); BASOPHIL % 1.1 % (0.0-2.0); EOSINOPHIL # 0.2 TH/MM3 (0-0.4); EOSINOPHIL % 3.1 % (0.0-4.0); HEMATOCRIT 39.7 % (39.0-51.0); HEMOGLOBIN 13.5 GM/DL (13.0-17.0); LYMPH % 25.3 % (9.0-44.0); LYMPHOCYTE # 1.7 TH/MM3 (1.0-4.8); MEAN CELL VOLUME 99.2 FL (80.0-100.0); MEAN CORPUSCULAR HEMOGLOBIN 33.6 PG (27.0-34.0); MEAN CORPUSCULAR HGB CONC 33.9 % (32.0-36.0); MEAN PLATELET VOLUME 8.4 FL (7.0-11.0); MONO % 8.1 % (0.0-8.0); MONOCYTE # 0.5 TH/MM3 (0-0.9); NEUT % 62.4 % (16.0-70.0); PLATELET COUNT 198 TH/MM3 (150-450); RED CELL DISTRIBUTION WIDTH 13.5 % (11.6-17.2); WHITE BLOOD COUNT 6.7 TH/MM3 (4.0-11.0)
[2017-08-20] MEDS: LORazepam 1 MG TAB PO PRN (08:57)
[2017-08-20 09:02] VITALS: RESP 18
[2017-08-20 09:10] LABS: ALBUMIN 3.1 GM/DL (3.4-5.0); ALKALINE PHOSPHATASE 91 U/L (45-117); ALT (GPT) 33 U/L (12-78); AST (GOT) 38 U/L (15-37); BICARBONATE 28.3 MEQ/L (21.0-32.0); BLOOD UREA NITROGEN 7 MG/DL (7-18); CALCIUM 8.5 MG/DL (8.5-10.1); CHLORIDE 103 MEQ/L (98-107); CREATININE 0.68 MG/DL (0.60-1.30); GLOMERULAR FILTRATION RATE 119 ML/MIN (>89); GLUCOSE,RANDOM 88 MG/DL (74-106); SODIUM (NA) 139 MEQ/L (136-145); TOTAL PROTEIN 6.3 GM/DL (6.4-8.2)
== END 2017-08-20 10:28 | disposition left against medical advice (07) | DRG 439 ==
LOC: NEPC 04:53 → NEDA 07:29 → OBSVTOIN 07:33 → N06B 08:17
PROVIDERS: ADMIT Hospitalist; ATTEND Hospitalist
DX: K85.20 Alcohol induced acute pancreatitis without necrosis or infection (principal); K86.3 Pseudocyst of pancreas; K83.8 Other specified diseases of biliary tract; K70.30 Alcoholic cirrhosis of liver without ascites; J44.9 Chronic obstructive pulmonary disease, unspecified; M48.00 Spinal stenosis, site unspecified; K59.03 Drug induced constipation; K86.0 Alcohol-induced chronic pancreatitis; H91.91 Unspecified hearing loss, right ear; F10.20 Alcohol dependence, uncomplicated; F12.90 Cannabis use, unspecified, uncomplicated; F17.210 Nicotine dependence, cigarettes, uncomplicated; Z80.0 Family history of malignant neoplasm of digestive organs; Z86.14 Personal history of Methicillin resistant Staphylococcus aureus infection
CPT/HCPCS: 74177; 80053; 83690; 85025; 85610; 85730; 96374; 96375; J2270; J2765; J7120; Q9967

== ENCOUNTER 2017-09-02 03:00 | Inpatient (IN) ==
[2017-09-04] MEDS ORDERED: Acetaminophen 325 MG Tablet PO PRN
[2017-09-04] MEDS ORDERED: Morphine Inj 4 MG/ML Vial IV.PUSH PRN
[2017-09-04] MEDS ORDERED: Haloperidol Inj 5 MG/ML Ampul IM PRN
[2017-09-04] MEDS ORDERED: Bisacodyl 10 MG Supp RECTAL PRN
[2017-09-04] MEDS ORDERED: LORazepam 1 MG Tablet PO PRN
[2017-09-04] MEDS: Pantoprazole Inj 40 MG Vial IV.PUSH SCH ×2 (05:40→17:07)
[2017-09-04] MEDS: Morphine Inj 4 MG/ML Vial IV.PUSH PRN ×5 (05:40→21:41)
[2017-09-04 06:11] LABS: Baso # (Auto) 0.1 th/mm3 (0.0-0.2); Baso % (Auto) 1.5 % (0.0-2.0); Eos # (Auto) 0.2 th/mm3 (0.0-0.4); Eos % (Auto) 2.2 % (0.0-4.0); Hematocrit 38.9 % (39.0-51.0); Hemoglobin 13.5 gm/dL (13.0-17.0); Lymph # (Auto) 1.5 th/mm3 (1.0-4.8); Mean Corpuscular HGB Conc 34.6 % (32.0-36.0); Mean Corpuscular Hemoglobin 34.1 pg (27.0-34.0); Mean Corpuscular Volume 98.8 fL (80.0-100.0); Mean Platelet Volume 8.4 fL (7.0-11.0); Mono # (Auto) 0.4 th/mm3 (0.0-0.9); Neut # (Auto) 4.8 th/mm3 (1.8-7.7); Neut % (Auto) 69.3 % (16.0-70.0); Platelet Count 258 th/mm3 (150-450); Red Blood Count 3.94 mil/mm3 (4.50-5.90); Red Cell Distribution Width 13.4 % (11.6-17.2); White Blood Count 6.9 th/mm3 (4.0-11.0)
[2017-09-04 06:37] LABS: Albumin 3.1 g/dL (3.4-5.0); Anion Gap 10 meq/L (5-15); Aspartate Aminotransferase 40 U/L (15-37); Blood Urea Nitrogen 6 mg/dL (7-18); Calcium 7.5 mg/dL (8.5-10.1); Carbon Dioxide 20.7 meq/L (21.0-32.0); Chloride 108 meq/L (98-107); Glomerular Filtration Rate Greater Than 89 mL/min (>89); Glucose,Random 79 mg/dL (74-106); Lipase 341 U/L (73-393); Potassium 3.2 meq/L (3.5-5.1); Sodium 139 meq/L (136-145)
[2017-09-04 06:39] LABS: Alanine Aminotransferase 34 U/L (12-78)
[2017-09-04 06:41] LABS: Alkaline Phosphatase 98 U/L (45-117); Total Protein 6.3 g/dL (6.4-8.2)
[2017-09-04] MEDS: Senna/Docusate Sodium 8.6/50 MG Tablet PO SCH ×2 (08:37→22:28)
[2017-09-04] MEDS: Folic Acid 1 MG Tablet PO SCH (08:37)
[2017-09-04] MEDS: Multivitamin/Minerals Therapeutic Tablet PO SCH (08:38)
[2017-09-04] MEDS: Sod Chloride 0.9% Inj 1,000 ML IV.SIG SCH ×3 (08:42→22:27)
--- NOTE | 2017-09-04 15:29 | P.PN ---
Subjective Interval history: Patient tried to eat this morning however he got nausea and vomited Still with abdominal epigastric pain, will switch back to clear liquids for now and continue IV fluid Lipase went down to normal limits Physical Exam Vital signs: Vital Signs 09/04/17 02:23 09/04/17 05:15 09/04/17 08:00 Temperature 97.6 F 98.8 F 98 F Pulse Rate 59 L 60 56 L Respiratory Rate 19 20 18 Blood Pressure 130/67 129/69 151/71 H Pulse Oximetry 98 98 97 09/04/17 12:00 Temperature 98.2 F Pulse Rate 57 L Respiratory Rate 18 Blood Pressure 158/72 H Pulse Oximetry 97 Intake & Output 09/03/17 09/04/17 09/04/17 18:59 06:59 18:59 Intake Total 0 / 0 Balance 0 / 0 Weight 60.4 kg 60.5 kg Intake: Oral 0 / 0 Other: # Voids 4 # Bowel Movements 0 Narrative: GENERAL: This is a well-nourished, well-developed patient, in no apparent distress. CARDIOVASCULAR: RRR, no gallops, or rubs. RESPIRATORY: Fair air entry bilaterally. No W, R, or R GASTROINTESTINAL: Abdomen soft, positive epigastric tenderness, nondistended. Positive bowel sounds MUSCULOSKELETAL: Extremities without clubbing, cyanosis, or edema. Pedal pulses appreciated NEUROLOGICAL: Awake and alert. Moves all extremity. Normal speech.no focal neurological deficit Results - Labs CBC & Chem 7: 09/04/17 05:26 09/04/17 05:26 Laboratory Results - last 24 hr 09/02/17 09/02/17 09/02/17 03:35 03:35 07:30 WBC 10.4 RBC 4.26 L Hgb 14.5 Hct 42.3 MCV 99.3 MCH 34.0 MCHC 34.3 RDW 13.6 Plt Count 340 MPV 8.5 Neut % (Auto) 68.5 Lymph % (Auto) 20.2 [place] % (Auto) 7.5 Eos % (Auto) 2.6 Baso % (Auto) 1.2 Neut # (Auto) 7.1 Lymph # (Auto) 2.1 [place] # (Auto) 0.8 Eos # (Auto) 0.3 Baso # (Auto) 0.1 CBC Comment DIFF FINAL WBC Differential Differential Comment PT INR Sodium 140 Potassium 3.9 Chloride 107 Carbon Dioxide 22.6 Anion Gap 10 BUN 12 Creatinine 0.86 Estimated GFR 91 POC Glucose Random Glucose 110 H Calcium 8.6 Total Bilirubin 0.5 AST 63 H ALT 46 Alkaline Phosphatase 114 Total Protein 7.8 Albumin 4.0 Lipase 58382 H Urine Color STRAW Urine Turbidity CLEAR Urine pH 5.0 Ur Specific [place] 1.039 H Urine Protein NEG Urine Glucose (UA) NEG Urine Ketones NEG Urine Occult Blood NEG Urine Nitrite NEG Urine Bilirubin NEG Urine Urobilinogen LESS THAN 2 Ur Leukocyte Esterase NEG Urine RBC LESS THAN 1 Urine WBC 1 Micro UA Comment CULT NOT INDICATED 09/02/17 09/03/17 09/03/17 14:35 06:04 06:04 WBC 6.4 RBC 3.92 L Hgb 13.3 Hct 39.3 MCV 100.3 H MCH 34.0 MCHC 33.9 RDW 13.2 Plt Count 264 MPV 8.3 Neut % (Auto) 63.9 Lymph % (Auto) 24.0 [place] % (Auto) 7.6 Eos % (Auto) 3.1 Baso % (Auto) 1.4 Neut # (Auto) 4.1 Lymph # (Auto) 1.5 [place] # (Auto) 0.5 Eos # (Auto) 0.2 Baso # (Auto) 0.1 CBC Comment DIFF FINAL WBC Differential Differential Comment PT 10.7 INR 1.1 Sodium 143 Potassium 3.2 L Chloride 111 H Carbon Dioxide 23.3 Anion Gap 9 BUN 5 L Creatinine 0.62 Estimated GFR 132 POC Glucose Random Glucose 85 Calcium 7.9 L Total Bilirubin 0.6 AST 38 H ALT 33 Alkaline Phosphatase 106 Total Protein 6.7 D Albumin 3.4 D Lipase 7866 H Urine Color Urine Turbidity Urine pH Ur Specific [place] Urine Protein Urine Glucose (UA) Urine Ketones Urine Occult Blood Urine Nitrite Urine Bilirubin Urine Urobilinogen Ur Leukocyte Esterase Urine RBC Urine WBC Micro UA Comment 09/04/17 09/04/17 09/04/17 05:26 05:26 08:40 WBC 6.9 RBC 3.94 L Hgb 13.5 Hct 38.9 L MCV 98.8 MCH 34.1 H MCHC 34.6 RDW 13.4 Plt Count 258 MPV 8.4 Neut % (Auto) 69.3 Lymph % (Auto) 21.0 [place] % (Auto) 6.0 Eos % (Auto) 2.2 Baso % (Auto) 1.5 Neut # (Auto) 4.8 Lymph # (Auto) 1.5 [place] # (Auto) 0.4 Eos # (Auto) 0.2 Baso # (Auto) 0.1 CBC Comment WBC Differential . Differential Comment Auto diff final PT INR Sodium 139 Potassium 3.2 L Chloride 108 H Carbon Dioxide 20.7 L Anion Gap 10 BUN 6 L Creatinine 0.62 Estimated GFR Greater than 89 POC Glucose 88 Random Glucose 79 Calcium 7.5 L Total Bilirubin 0.6 AST 40 H ALT 34 Alkaline Phosphatase 98 Total Protein 6.3 L Albumin 3.1 L Lipase 341 Urine Color Urine Turbidity Urine pH Ur Specific [place] Urine Protein Urine Glucose (UA) Urine Ketones Urine Occult Blood Urine Nitrite Urine Bilirubin Urine Urobilinogen Ur Leukocyte Esterase Urine RBC Urine WBC Micro UA Comment 09/04/17 13:48 WBC RBC Hgb Hct MCV MCH MCHC RDW Plt Count MPV Neut % (Auto) Lymph % (Auto) [place] % (Auto) Eos % (Auto) Baso % (Auto) Neut # (Auto) Lymph # (Auto) [place] # (Auto) Eos # (Auto) Baso # (Auto) CBC Comment WBC Differential Differential Comment PT INR Sodium Potassium Chloride Carbon Dioxide Anion Gap BUN Creatinine Estimated GFR POC Glucose 149 H Random Glucose Calcium Total Bilirubin AST ALT Alkaline Phosphatase Total Protein Albumin Lipase Urine Color Urine Turbidity Urine pH Ur Specific [place] Urine Protein Urine Glucose (UA) Urine Ketones Urine Occult Blood Urine Nitrite Urine Bilirubin Urine Urobilinogen Ur Leukocyte Esterase Urine RBC Urine WBC Micro UA Comment Assessment and Plan - Plan Acute pancreatitis initially lipase was lipase 18,800 Pancreatic pseudocyst Alcohol abuse Tobacco marijuana abuse Hepatitis C Liver cirrhosis DVT prophylaxis no need for chemical due to liver failure and increased INR Plan: Still with nausea and vomiting abdominal pain, he tried to eat but this triggered vomiting, I discussed with him we will switch back to clear liquid at this point and monitor improvement, lipase went down to normal limit [facility] protocol Lipase now within normal limits Continue home meds Discharge Planning: In 1-2 days once clinically improved and able to tolerate diet
[2017-09-05] MEDS: Morphine Inj 4 MG/ML Vial IV.PUSH PRN (02:38)
[2017-09-05] MEDS: Sod Chloride 0.9% Inj 1,000 ML IV.SIG SCH ×2 (02:38→05:50)
[2017-09-05] MEDS: Pantoprazole Inj 40 MG Vial IV.PUSH SCH (05:49)
[2017-09-05] MEDS: Folic Acid 1 MG Tablet PO SCH (08:52)
[2017-09-05] MEDS: Multivitamin/Minerals Therapeutic Tablet PO SCH (08:52)
[2017-09-05] MEDS: Senna/Docusate Sodium 8.6/50 MG Tablet PO SCH (08:55)
--- NOTE | 2017-09-05 17:33 | P.DS ---
Date of admission: 09/02/17 05:29 Primary care physician: Bigg Grimes Brief History from admission: This is a 62 y/o male with chronic alcohol use, hepatitis C, liver cirrhosis spinal stenosis, chronic back pain, cane to the ED today complaining of 10/10 upper abdominal pain and nausea of 6hrs duration that began after he consumed multiple alcoholic beverages. He has a history of 5 prior hospitalizations for pancreatitis, the most recent being August 19 according to our records. He denies vomiting, constipation, diarrhea, or bloody stools. His last alcoholic beverage was at ~5pm yesterday. Patient drinks 8-10 beers daily and smokes cigarettes 2 packs per day. Denies fever or chills. Does not have any tremors at this time. Denies vomiting blood. DS: Diagnosis - Discharge Diagnosis (1) Acute pancreatitis Status: Acute (2) Liver cirrhosis Status: Acute (3) Alcohol abuse Status: Acute (4) Pancreatic pseudocyst Status: Acute DS: Medications - Discharge Medications Prescriptions: folic acid 1 mg PO DAILY #30 tab thiamine HCl (vitamin B1) 100 mg PO DAILY #30 tab DS: Summary Hospital Course: 62 years old male with history of pancreatic pseudocyst and alcohol abuse, tobacco and marijuana abuse history of liver hepatitis C admitted with acute pancreatitis initially lipase was lipase 18,800 Patient started with n.p.o., IV fluids CIWA protocol, trending lipase, monitor improvement, lipase went down to normal limit Patient started tolerating diet well he was discharged on low-fat diet and extensively counseled about illicit drug and alcohol abstinence - Time Spent with Patient Total time spent providing and/or coordinating discharge services: Exam Vital signs: Vital Signs 09/04/17 21:20 09/05/17 00:00 09/05/17 04:20 Temperature 98 F 98.8 F 97.9 F Pulse Rate 54 L 59 L 60 Respiratory Rate 16 16 16 Blood Pressure 127/61 120/59 L 115/59 L Pulse Oximetry 100 100 99 09/05/17 08:41 09/05/17 12:14 Temperature 99.5 F 97.9 F Pulse Rate 50 L 63 Respiratory Rate 20 20 Blood Pressure 148/71 H 147/66 H Pulse Oximetry 98 100 Intake & Output 09/04/17 09/05/17 09/05/17 18:59 06:59 18:59 Intake Total 1000 / 1000 5050 / 5050 Balance 1000 / 1000 5050 / 5050 Weight 60 kg Intake: IV 1000 / 1000 1000 / 1000 NS Inj 1,000 ML @ 100 mls/hr IV 1000 / 1000 1000 / 1000 .SIG .Q10H [facility] Rx#:[id number] Oral 4050 / 4050 Other: # Voids 4 # Bowel Movements 0 Results Procedures completed during hospitalization: None Labs on day of discharge: Labs from last 24 hours 09/05/17 09/04/17 08:04 21:13 POC Glucose 109 148 H Discharge Plan - Discharge Disposition Patient Disposition: Discharge Home - Discharge Condition Condition: Fair - Discharge Order Discharge Orders: Discharge Order (Routine); Ordered 09/05/17 Ordered By: Spencer Worrell - Discharge Details Discharge Comment: Discharge once tolerate regular low-fat diet food without nausea or vomiting - Physicians Team Primary Care Provider: Bigg Grimes Attending Provider: Spencer Worrell - Rxs /Orders / Referrals /Forms Prescriptions: New folic acid 1 mg Tablet 1 mg PO DAILY Qty: 30 RF: 0 thiamine HCl (vitamin B1) 100 mg Tablet 100 mg PO DAILY Qty: 30 RF: 0 Continue hydrocodone-acetaminophen 7.5-325 mg Tablet 1 tab PO Q4H PRN (Reason: Pain) Referrals: Bigg Grimes MD [Primary Care Provider] - See Instructions (OFFICE CLOSED PLEASE CALL TO MAKE APPT.)
== END 2017-09-05 01:50 | disposition home or self-care (01) ==
LOC: N05 05:29
PROVIDERS: ADMIT Hospitalist; ATTEND Hospitalist

== ENCOUNTER 2017-11-24 03:26 | Inpatient (IN) ==
[2017-11-24] MEDS ORDERED: Sod Chloride 0.9% Inj 1,000 ML IV.SIG ONE (04:10)
--- NOTE | 2017-11-24 04:11 | ED ---
HPI General Chief Complaint: Abdominal Pain Stated Complaint: ABD Pain Time Seen by Provider: 11/24/17 04:04 Source: patient Mode of arrival: ambulatory Limitations: no limitations History of Present Illness HPI narrative: Patient is a 62-year-old male with history of chronic alcohol abuse, hepatitis C, liver cirrhosis, chronic back pain as well as pancreatitis, presents to the emergency room with complaints of abdominal pain. Patient reports that he has been having upper abdominal pain for the past few days. Patient reports that he was concerned that it may be his pancreatitis acting up on him. Patient reports that he is 3 days sober from drinking alcohol. Patient reports that he has had multiple hospitalizations for pancreatitis. 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 Patient with no fever or chills, no chest pain or shortness of breath, no other complaints. Related Data Home Medications Medication Instructions Recorded Confirmed hydrocodone-acetaminophen 1 tab PO Q4H PRN 09/03/17 11/24/17 famotidine 20 mg PO BID 11/24/17 11/24/17 [id number] [Creon] 3,000 units PO BID 11/24/17 11/24/17 Previous Rx's Medication Instructions Recorded folic acid 1 mg PO DAILY #30 tab 09/05/17 thiamine HCl (vitamin B1) 100 mg PO DAILY #30 tab 09/05/17 Allergies Allergy/AdvReac Type Severity Reaction Status Date / Time codeine AdvReac Mild SWEATS Verified 11/24/17 03:34 Review of Systems ROS: all other systems reviewed are negative [facility] Medical History Medical History COPD (chronic obstructive pulmonary disease) (Acute) Colitis (Acute) History of cirrhosis of liver (Acute) Pancreatitis (Acute) Surgical History Surgical History Hx of colonoscopy (Acute) Social History Social History Second Hand Smoke Exposure: No Smoking Status: Current every day smoker Tobacco Type: Cigarettes How Often Do You Have a Drink Containing Alcohol: 4 or more times a week Recent Travel in [facility] within the Last 8 Weeks: No Recent Out of Country Travel within the Last 8 Weeks: No Substance Abuse Detail Marijuana: Substance Use Status: Active Route Used Substance Abuse: By Mouth and Inhalation Reason for Use: Feels Good Immunization History Tetanus Immunization: <5 Years Tetanus Immunization Year if Known: 2016 Hx Influenza Vaccine This Season: No Exam Narrative Exam Narrative: GENERAL: Mild distress SKIN: Focused skin assessment warm/dry. HEAD: Atraumatic. Normocephalic. EYES: Pupils equal and round. No scleral icterus. No injection or drainage. ENT: No nasal bleeding or discharge. Mucous membranes pink and moist. NECK: Trachea midline. No JVD. CARDIOVASCULAR: Regular rate and rhythm. No murmur appreciated. RESPIRATORY: No accessory muscle use. Clear to auscultation. Breath sounds equal bilaterally. GASTROINTESTINAL: Abdomen soft, increased tenderness to upper abdomen with guarding on exam, nondistended. Hepatic and splenic margins not palpable. MUSCULOSKELETAL: No obvious deformities. No clubbing. No cyanosis. No edema. NEUROLOGICAL: Awake and alert. No obvious cranial nerve deficits. Motor grossly within normal limits. Normal speech. PSYCHIATRIC: Appropriate mood and affect; insight and judgment normal. Course Initial Documented Vital Signs Temperature 97.7 F 11/24/17 03:27 Pulse Rate 75 11/24/17 03:27 Respiratory Rate 18 11/24/17 03:27 Blood Pressure 147/72 H 11/24/17 03:27 Pulse Oximetry 99 11/24/17 03:27 Last Documented Vital Signs Temperature 97.7 F 11/24/17 03:27 Pulse Rate 76 11/24/17 03:42 Respiratory Rate 20 11/24/17 03:42 Blood Pressure 174/87 H 11/24/17 03:42 Pulse Oximetry 98 11/24/17 03:42 Medical Decision Making [facility] Narrative Medical decision making narrative: During the course of the patients emergency department visit, the patients history, examination, and differential diagnosis were reviewed with the patient. The patient was placed on a court recording monitor with oximetry and frequent blood pressure monitoring. The patient had an IV access obtained and blood work sent for analysis. The patient was initially provided IVF Patient's lipase 3537, CT of the abdomen pelvis shows chronic pancreatitis, cannot exclude some degree of acute pancreatitis. Patient will be admitted for observation case reviewed with Dr. Campos who accepts pt to service Medical Screen Exam Complete: Yes Emergency Medical Condition: Yes Differential Diagnosis Differential Diagnosis: Pancreatitis, gastric ulcer, gastritis, gastroenteritis , diverticulitis, hepatitis Medical Records Medical records reviewed: Yes I reviewed the patient's medical records. Lab Data Result diagrams: 11/24/17 04:10 11/24/17 04:10 Lab Results 11/24/17 11/24/17 11/24/17 Range/Units 04:10 04:10 04:10 WBC 7.8 (4.0-11.0) th/mm3 RBC 4.47 L (4.50-5.90) mil/mm3 Hgb 14.8 (13.0-17.0) gm/dL Hct 44.2 (39.0-51.0) % MCV 98.8 (80.0-100.0) fL MCH 33.2 (27.0-34.0) pg MCHC 33.6 (32.0-36.0) % RDW 14.1 (11.6-17.2) % Plt Count 243 (150-450) th/mm3 MPV 8.7 (7.0-11.0) fL Neut % (Auto) 63.0 (16.0-70.0) % Lymph % (Auto) 24.6 (9.0-44.0) % [place] % (Auto) 8.6 H (0.0-8.0) % Eos % (Auto) 2.8 (0.0-4.0) % Baso % (Auto) 1.0 (0.0-2.0) % Neut # (Auto) 4.9 (1.8-7.7) th/mm3 Lymph # (Auto) 1.9 (1.0-4.8) th/mm3 [place] # (Auto) 0.7 (0.0-0.9) th/mm3 Eos # (Auto) 0.2 (0.0-0.4) th/mm3 Baso # (Auto) 0.1 (0.0-0.2) th/mm3 WBC Differential . Differential Comment Auto diff final PT 10.5 (9.8-11.6) sec INR 1.0 Ratio APTT 24.7 (24.3-30.1) sec Sodium 140 (136-145) meq/L Potassium 3.4 L (3.5-5.1) meq/L Chloride 105 (98-107) meq/L Carbon Dioxide 22.8 (21.0-32.0) meq/L Anion Gap 12 (5-15) meq/L BUN 11 (7-18) mg/dL Creatinine 0.83 (0.60-1.30) mg/dL Estimated GFR Greater than 89 (>89) mL/min Random Glucose 108 H (74-106) mg/dL Calcium 8.9 (8.5-10.1) mg/dL Total Bilirubin 0.4 (0.2-1.0) mg/dL AST 53 H (15-37) U/L ALT 43 (12-78) U/L Alkaline Phosphatase 117 (45-117) U/L Total Protein 8.0 (6.4-8.2) g/dL Albumin 4.0 (3.4-5.0) g/dL Lipase 3537 H (73-393) U/L Imaging Data Radiologist's impression: Abdomen/Pelvis CT 11/24/17 04:10 CONCLUSION: No significant change from prior exam with stigmata of chronic pancreatitis. Cannot exclude some degree of acute pancreatitis. Discharge Plan Discharge Disposition Patient Disposition: 30 Still Patient Discharge Condition Condition: Serious Discharge Details Diagnosis: Acute pancreatitis Physicians Team ED Provider: Nancy oNrton Primary Care Provider: UNKNOWN, Rxs /Orders / Referrals /Forms Prescriptions: No Action hydrocodone-acetaminophen 7.5-325 mg Tablet 1 tab PO Q4H PRN (Reason: Pain) RF: 0 thiamine HCl (vitamin B1) 100 mg Tablet 100 mg PO DAILY Qty: 30 RF: 0 folic acid 1 mg Tablet 1 mg PO DAILY Qty: 30 RF: 0 famotidine 20 mg Tablet 20 mg PO BID RF: 0 [id number] [Creon] 3,000-9,500- 15,000 unit Capsule,Delayed Release(Dr/Ec) 3,000 units PO BID RF: 0 Status ED Status: With Doctor
[2017-11-24 04:23] LABS: Baso # (Auto) 0.1 th/mm3 (0.0-0.2); Eos # (Auto) 0.2 th/mm3 (0.0-0.4); Eos % (Auto) 2.8 % (0.0-4.0); Hematocrit 44.2 % (39.0-51.0); Hemoglobin 14.8 gm/dL (13.0-17.0); Lymph # (Auto) 1.9 th/mm3 (1.0-4.8); Lymph % (Auto) 24.6 % (9.0-44.0); Mean Corpuscular HGB Conc 33.6 % (32.0-36.0); Mean Corpuscular Hemoglobin 33.2 pg (27.0-34.0); Mean Corpuscular Volume 98.8 fL (80.0-100.0); Mean Platelet Volume 8.7 fL (7.0-11.0); Mono # (Auto) 0.7 th/mm3 (0.0-0.9); Mono % (Auto) 8.6 % (0.0-8.0); Neut # (Auto) 4.9 th/mm3 (1.8-7.7); Platelet Count 243 th/mm3 (150-450); Red Blood Count 4.47 mil/mm3 (4.50-5.90); Red Cell Distribution Width 14.1 % (11.6-17.2); White Blood Count 7.8 th/mm3 (4.0-11.0)
[2017-11-24 04:36] LABS: Activated Partial Thrombo Time 24.7 sec (24.3-30.1); Prothrombin Time 10.5 sec (9.8-11.6)
[2017-11-24 04:57] LABS: Alanine Aminotransferase 43 U/L (12-78)
[2017-11-24 05:00] LABS: Alkaline Phosphatase 117 U/L (45-117); Lipase 3537 U/L (73-393)
[2017-11-24 05:27] LABS: Anion Gap 12 meq/L (5-15); Aspartate Aminotransferase 53 U/L (15-37); Blood Urea Nitrogen 11 mg/dL (7-18); Calcium 8.9 mg/dL (8.5-10.1); Carbon Dioxide 22.8 meq/L (21.0-32.0); Chloride 105 meq/L (98-107); Glomerular Filtration Rate Greater Than 89 mL/min (>89); Glucose,Random 108 mg/dL (74-106); Potassium 3.4 meq/L (3.5-5.1); Sodium 140 meq/L (136-145)
--- NOTE | 2017-11-24 05:38 | CT ---
EXAM DATE: 11/24/2017 4:34 AM EDT AGE/SEX: 62 years / Male INDICATIONS: Abdomen pain. CLINICAL DATA: This is the patient's initial encounter. Patient reports that signs and symptoms have been present for 1 day and indicates a pain score of 5/10. MEDICAL/SURGICAL HISTORY: Chronic obstructive pulmonary disease. Cirrhosis. Pancreatitis. ET OH Colitis None. RADIATION DOSE: 6.64 CTDI (mGy) [place] [facility] [place]/2017. . TECHNIQUE: Multiple contiguous axial images were obtained through the abdomen. Images were obtained using multiple row detector helical technique. Using automated exposure control and adjustment of the mA and/or kV according to patient size, radiation dose was kept as low as reasonably achievable to o btain optimal diagnostic quality images. DICOM format image data is available electronically for rev iew and comparison. FINDINGS: Lower Lungs: The visualized lower lungs are clear. Liver: The liver has a homogeneous density without space-occupying lesion. There is no dilation of th e biliary tree. Spleen: Homogeneous density without enlargement. Pancreas: Note is again made of stigmata of chronic pancreatitis with popcorn calcifications most si gnificantly clustered in the uncinate region. There are presumed pseudocysts present in the anterior distal body and in the pancreatic head which are grossly unchanged in size. There is mild peripancrea tic fatty tissue induration which is similar to prior. Mild dilatation of the pancreatic duct which i s also unchanged. Kidneys: Normal in size and shape. No evidence of mass or hydronephrosis. Adrenal Glands: Unremarkable. Aorta: The aorta and proximal iliac vessels are grossly unremarkable without aneurysmal dilation. Bowel/Mesentery: The bowel loops are grossly unremarkable. The cecum and sigmoid colon have a normal configuration. Abdominal Wall: Intact. Retroperitoneum: No evidence of adenopathy in the retrocrural, para-aortic, or deep pelvic regions. Bladder: Contours are smooth. Reproductive Organs: No abnormal masses or calcifications seen. Inguinal: The inguinal region is unremarkable without evidence of adenopathy. Bony Structures: Unremarkable. CONCLUSION: No significant change from prior exam with stigmata of chronic pancreatitis. Cannot exclude some degr ee of acute pancreatitis. Electronically signed by: Juan Manuel Esteves MD 11/24/2017 5:37 AM EDT
[2017-11-24] MEDS ORDERED: Ketorolac Inj 30 MG/ML (IVP) Vial IV.PUSH ONE (06:04)
[2017-11-24] MEDS ORDERED: Acetaminophen 325 MG Tablet PO PRN (06:17)
[2017-11-24] MEDS ORDERED: Bisacodyl 10 MG Supp RECTAL PRN (06:17)
[2017-11-24] MEDS ORDERED: Morphine Sulfate Inj 2 MG/ML Vial IV.PUSH PRN (06:22)
[2017-11-24] MEDS: Sod Chloride 0.9% Inj 1,000 ML IV.CONT SCH ×2 (06:33→16:41)
[2017-11-24] MEDS: Enoxaparin Inj 40 MG/0.4 ML Syringe SQ SCH (08:31)
[2017-11-24] MEDS: Famotidine 20 MG Tablet PO SCH ×2 (08:32→20:19)
[2017-11-24] MEDS ORDERED: Haloperidol Inj 5 MG/ML Ampul IV.PUSH PRN (11:04)
[2017-11-24] MEDS ORDERED: LORazepam 1 MG Tablet PO PRN (11:04)
--- NOTE | 2017-11-24 11:06 | P.HPIM ---
History of Present Illness Service: [facility] Primary Care Physician: UNKNOWN Chief Complaint: Abdominal pain History of Present Illness: 62-year-old male with a medical history significant for alcohol dependence, liver cirrhosis, hepatitis C, chronic back pain, recurrent alcoholic pancreatitis presents with complaint of abdominal pain. Patient reports symptoms has been present for the past few days. He had to stop drinking alcohol about 3 days ago because he thought he was another episode of pancreatitis. However the pain persisted. He drinks about 10 beers daily. Workup in the emergency room revealed acute pancreatitis again. Currently he denies nausea or vomiting but reports persistent midepigastric pain. Inpatient Certification: I certify that the inpatient services were ordered in accordance with Medicare regulations governing the order. This includes certification that hospital inpatient services are reasonable and necessary and in the case of services not specified as inpatient-only under 42 CFR 419.22(n), that they are appropriately provided as inpatient services in accordance to with the 2-midnight benchmark under 43 CFR 412.3(e) Estimated Total Length of Stay (Days): 3 Plans for Post Hospital Care: Home Review of Systems All other systems reviewed negative except as stated in HPI PMFSH - History History Provided By: Patient - Medical History Medical History: Medical History (Last Reviewed 11/24/17 @ 10:58 by Charles Mcmahon MD) COPD (chronic obstructive pulmonary disease) Colitis History of cirrhosis of liver Pancreatitis - Surgical History Surgical History: Surgical History (Last Reviewed 11/24/17 @ 10:58 by Charles Mcmahon MD) Hx of colonoscopy - Family History Family History: Family History (Last Updated 11/24/17 @ 10:58 by Charles Mcmahon MD) Other Family history non-contributory - Social History I have reviewed the patient's Social History: Yes - Tobacco History Second Hand Smoke Exposure: No Tobacco Use In Past 30 Days: Yes Smoking Status: Current every day smoker Tobacco Type: Cigarettes - Alcohol History How Often Do You Have a Drink Containing Alcohol: 4 or more times a week - Substance Use Type Marijuana Status: Active Route Used: By Mouth, Inhalation Reason for Use: Feels Good - Travel History Recent Travel in the [place] Within the Last 8 Weeks: No Recent Travel Out of the Country Within the Last 8 Weeks: No - Immunization History Tetanus Immunization: <5 Years Tetanus Immunization Year if Known: 2015 Hx Influenza Vaccine This Season: No Medications and Allergies Active Medications: Active Medications Acetaminophen (Tylenol) 650 mg PO Q4H PRN PRN Reason: Temp > 100.4 Bisacodyl (Dulcolax Supp) 10 mg RECTAL DAILY PRN PRN Reason: SEVERE CONSITIPATION Enoxaparin Sodium (Lovenox Inj) 40 mg SQ Q24H [facility] Last Admin: 11/24/17 08:31 Dose: Not Given Famotidine (Pepcid) 20 mg PO BID [facility] Last Admin: 11/24/17 08:32 Dose: 20 mg Sodium Chloride (Ns Inj) 1,000 mls @ 100 mls/hr IV.CONT .Q10H [facility] Last Admin: 11/24/17 06:33 Dose: 100 mls/hr Morphine Sulfate (Morphine Inj) 2 mg IV.PUSH Q3H PRN PRN Reason: pain > 4 Last Admin: 11/24/17 08:41 Dose: 2 mg Ondansetron HCl (Zofran Inj) 4 mg IV.PUSH Q6H PRN PRN Reason: NAUSEA OR VOMITING Sennosides (Senokot) 17.2 mg PO Q12H PRN PRN Reason: Moderate Constipation Sodium Chloride (Ns Flush) 2 ml IV.FLUSH PRN PRN PRN Reason: FLUSH AFTER USING IV ACCESS Allergies Allergy/AdvReac Type Severity Reaction Status Date / Time codeine AdvReac Mild SWEATS Verified 11/24/17 03:34 Home Medications Medication Instructions Recorded Confirmed Type hydrocodone-acetaminophen 1 tab PO Q4H PRN 09/03/17 11/24/17 History famotidine 20 mg PO BID 11/24/17 11/24/17 History [id number] [Creon] 3,000 units PO BID 11/24/17 11/24/17 History Exam Vital signs: Vital Signs 11/24/17 03:27 11/24/17 03:42 11/24/17 06:16 Temperature 97.7 F Pulse Rate 75 76 64 Respiratory Rate 18 20 15 Blood Pressure 147/72 H 174/87 H 167/82 H Pulse Oximetry 99 98 98 11/24/17 07:00 Temperature Pulse Rate Respiratory Rate 16 Blood Pressure Pulse Oximetry Intake & Output 11/23/17 11/24/17 11/24/17 18:59 06:59 18:59 Intake Total 1000 / 1000 Balance 1000 / 1000 Weight 60 kg Intake: IV 1000 / 1000 NS Inj 1,000 ML @ Wide Open IV. 1000 / 1000 SIG BOLUS ONE Rx#:[id number] Narrative: CONSTITUTIONAL/GENERAL: Patient appears older than stated age SKIN: No jaundice, rashes, or concerning lesions. Not diaphoretic. HEAD: Atraumatic. Normocephalic. EYES: Pupils equal and round and reactive. Extra ocular motions are intact. No scleral icterus. No injection or drainage. ENT: Hearing grossly normal. Nose without drainage. Throat without visible erythema, exudates, masses, or lesions. NECK: Trachea midline. Neck is supple, non-tender. No palpable thyroid enlargement or nodularity. CARDIOVASCULAR: Normal rate and regular rhythm without murmurs, gallops, or rubs. No JVD. Peripheral pulses 2+ and symmetric. RESPIRATORY/CHEST: Symmetric, unlabored respirations. Breath sounds equal and clear to auscultation bilaterally. No wheezes, crackles, rales, or rhonchi. GASTROINTESTINAL: Abdomen soft, tender to palpation over the midepigastric region. Bowel sounds present. MUSCULOSKELETAL: Extremities without clubbing, cyanosis, or edema. No joint tenderness or effusion noted. No calf tenderness. No mottling or clubbing. NEUROLOGICAL: Awake and alert. Motor and sensory grossly within normal limits. Follows commands. Move all extremities spontaneously. No focal deficits. PSYCHIATRIC: No obvious mood problems. No apparent hallucinations or other psychotic thought process. Results - Labs CBC & Chem 7: 11/24/17 04:10 11/24/17 04:10 Labs: Short CBC 11/24/17 Range/Units 04:10 WBC 7.8 (4.0-11.0) th/mm3 Hgb 14.8 (13.0-17.0) gm/dL Hct 44.2 (39.0-51.0) % Plt Count 243 (150-450) th/mm3 BMP 11/24/17 04:10 Sodium 140 Potassium 3.4 L Chloride 105 Carbon Dioxide 22.8 BUN 11 Creatinine 0.83 Calcium 8.9 Liver Function 11/24/17 Range/Units 04:10 Total Bilirubin 0.4 (0.2-1.0) mg/dL AST 53 H (15-37) U/L ALT 43 (12-78) U/L Alkaline Phosphatase 117 (45-117) U/L Albumin 4.0 (3.4-5.0) g/dL - Imaging Impressions Abdomen/Pelvis CT 11/24/17 04:10 CONCLUSION: No significant change from prior exam with stigmata of chronic pancreatitis. Cannot exclude some degree of acute pancreatitis. Caprini VTE Risk Assessment Caprini VTE Risk Assessment: Moderate/High Risk (score >= 2) Caprini Risk Assessment Model: Point Value = 1 Point Value = 2 Point Value = 3 Point Value = 5 Age 41-60 Minor surgery BMI > 25 kg/m2 Swollen legs Varicose veins or History of unexplained or recurrent spontaneous Oral contraceptives or hormone replacement Sepsis (< 1 month) Serious lung disease, including pneumonia (< 1 month) Abnormal pulmonary function Acute myocardial infarction Congestive heart failure (< 1 month) History of inflammatory bowel disease Medical patient at bed rest Age 61-74 Arthroscopic surgery Major open surgery (> 45 min) Laparoscopic surgery (> 45 min) Malignancy Confined to bed (> 72 hours) Immobilizing plaster cast Central venous access Age >= 75 History of VTE Family history of VTE Factor V Leiden Prothrombin [id number] Lupus anticoagulant Anticardiolipin antibodies Elevated serum homocysteine Heparin-induced thrombocytopenia Other congenital or acquired thrombophilia Stroke (< 1 month) Elective arthroplasty Hip, pelvis, or leg fracture Acute spinal cord injury (< 1 month) Prophylaxis Regimen: Total Risk Factor Score Risk Level Prophylaxis Regimen 0-1 Low Early ambulation 2 Moderate Order ONE of the following: *Sequential Compression Device (SCD) *Heparin 5000 units SQ BID 3-4 Higher Order ONE of the following medications: *Heparin 5000 units SQ TID *Enoxaparin/Lovenox 40 mg SQ daily (WT < 150 kg, CrCl > 30 mL/min) *Enoxaparin/Lovenox 30 mg SQ daily (WT < 150 kg, CrCl > 10-29 mL/min) *Enoxaparin/Lovenox 30 mg SQ BID (WT < 150 kg, CrCl > 30 mL/min) AND/OR *Sequential Compression Device (SCD) 5 or more Highest Order ONE of the following medications: *Heparin 5000 units SQ TID (Preferred with Epidurals) *Enoxaparin/Lovenox 40 mg SQ daily (WT < 150 kg, CrCl > 30 mL/min) *Enoxaparin/Lovenox 30 mg SQ daily (WT < 150 kg, CrCl > 10-29 mL/min) *Enoxaparin/Lovenox 30 mg SQ BID (WT < 150 kg, CrCl > 30 mL/min) AND *Sequential Compression Device (SCD) Assessment and Plan - Plan 62-year-old male with: Acute on chronic alcoholic pancreatitis: - Patient continues to drink despite the detrimental effect of alcohol with his health. - We will continue IV fluid - Pain medication as needed. He states he is allergic to morphine. Will treat with Toradol as needed. Antiemetics as needed. -Okay for ice chips. If he continues to improve, consider low-fat diet in the morning Hepatitis C/liver cirrhosis: - Patient advised to follow-up outpatient with GI. Alcohol dependence: He was extensively counseled regarding the need to stop drinking alcohol. - CIWA protocol Hypokalemia: Replaced. Monitor Tobacco dependence: Patient was counseled on cessation. GI prophylaxis: PPI. Stool softener PRN constipation. DVT PPx: Lovenox
[2017-11-24] MEDS: Ketorolac Inj 30 MG/ML (IVP) Vial IV.PUSH PRN ×2 (15:16→23:10)
[2017-11-25] MEDS: Sod Chloride 0.9% Inj 1,000 ML IV.CONT SCH ×2 (01:47→14:05)
[2017-11-25] MEDS: Ketorolac Inj 30 MG/ML (IVP) Vial IV.PUSH PRN ×2 (05:18→12:11)
[2017-11-25 07:15] LABS: Baso # (Auto) 0.1 th/mm3 (0.0-0.2); Baso % (Auto) 2.8 % (0.0-2.0); Eos # (Auto) 0.1 th/mm3 (0.0-0.4); Eos % (Auto) 2.6 % (0.0-4.0); Hematocrit 39.5 % (39.0-51.0); Hemoglobin 13.3 gm/dL (13.0-17.0); Lymph # (Auto) 1.4 th/mm3 (1.0-4.8); Lymph % (Auto) 29.5 % (9.0-44.0); Mean Corpuscular HGB Conc 33.7 % (32.0-36.0); Mean Corpuscular Hemoglobin 33.4 pg (27.0-34.0); Mean Corpuscular Volume 98.9 fL (80.0-100.0); Mean Platelet Volume 8.2 fL (7.0-11.0); Mono # (Auto) 0.4 th/mm3 (0.0-0.9); Mono % (Auto) 8.3 % (0.0-8.0); Neut # (Auto) 2.8 th/mm3 (1.8-7.7); Neut % (Auto) 56.8 % (16.0-70.0); Platelet Count 187 th/mm3 (150-450); Red Blood Count 3.99 mil/mm3 (4.50-5.90); Red Cell Distribution Width 14.3 % (11.6-17.2); White Blood Count 4.9 th/mm3 (4.0-11.0)
[2017-11-25 07:33] LABS: Anion Gap 9 meq/L (5-15); Blood Urea Nitrogen 9 mg/dL (7-18); Calcium 8.1 mg/dL (8.5-10.1); Carbon Dioxide 22.4 meq/L (21.0-32.0); Chloride 114 meq/L (98-107); Glomerular Filtration Rate Greater Than 89 mL/min (>89); Glucose,Random 97 mg/dL (74-106); Potassium 3.9 meq/L (3.5-5.1); Sodium 145 meq/L (136-145)
[2017-11-25 07:35] LABS: Lipase 1687 U/L (73-393)
[2017-11-25] MEDS: Enoxaparin Inj 40 MG/0.4 ML Syringe SQ SCH ×2 (08:54→08:56)
[2017-11-25] MEDS: Famotidine 20 MG Tablet PO SCH ×3 (08:54→21:20)
--- NOTE | 2017-11-25 10:04 | P.PN ---
Subjective Interval history: Patient doing well, he reports that his pain has resolved and that he would like to eat, denies fever and chills. No overnight concerns. Physical Exam Vital signs: Vital Signs 11/24/17 11:52 11/24/17 20:00 11/25/17 00:00 Temperature 97.7 F 98.3 F 98.4 F Pulse Rate 57 L 64 54 L Respiratory Rate 18 18 16 Blood Pressure 165/86 H 127/67 127/60 Pulse Oximetry 96 97 96 11/25/17 04:00 Temperature 98.4 F Pulse Rate 66 Respiratory Rate 16 Blood Pressure 167/79 H Pulse Oximetry 95 Intake & Output 11/24/17 11/25/17 11/25/17 18:59 06:59 18:59 Intake Total 1900 / 1900 1000 / 1000 Output Total 600 / 600 Balance 1300 / 1300 1000 / 1000 Weight 60 kg Intake: IV 1000 / 1000 1000 / 1000 NS Inj 1,000 ML @ 100 mls/hr IV 1000 / 1000 1000 / 1000 .CONT .Q10H [facility] Rx#:[id number] Oral 900 / 900 0 / 0 Output: Urine 600 / 600 Other: # Voids 3 Date of Last Bowel Movement 11/23/17 # Bowel Movements 0 Weight On Admission 60 kg Narrative: GENERAL: thin male, in NAD, lying comfortable in bed SKIN: Warm and dry. HEAD: Normocephalic. EYES: No scleral icterus. No injection or drainage. NECK: Supple, trachea midline. No JVD or lymphadenopathy. CARDIOVASCULAR: Regular rate and rhythm without murmurs, gallops, or rubs. RESPIRATORY: Breath sounds equal bilaterally. No accessory muscle use. GASTROINTESTINAL: Abdomen soft, non-tender, nondistended. Neg rebound. MUSCULOSKELETAL: No cyanosis, or edema. BACK: Nontender without obvious deformity. No CVA tenderness. Results - Labs CBC & Chem 7: 11/25/17 06:27 11/25/17 06:27 Laboratory Results - last 24 hr 11/25/17 11/25/17 06:27 06:27 WBC 4.9 RBC 3.99 L Hgb 13.3 Hct 39.5 MCV 98.9 MCH 33.4 MCHC 33.7 RDW 14.3 Plt Count 187 MPV 8.2 Neut % (Auto) 56.8 Lymph % (Auto) 29.5 [place] % (Auto) 8.3 H Eos % (Auto) 2.6 Baso % (Auto) 2.8 H Neut # (Auto) 2.8 Lymph # (Auto) 1.4 [place] # (Auto) 0.4 Eos # (Auto) 0.1 Baso # (Auto) 0.1 WBC Differential . Differential Comment Auto diff final Sodium 145 Potassium 3.9 Chloride 114 H D Carbon Dioxide 22.4 Anion Gap 9 BUN 9 Creatinine 0.54 L Estimated GFR Greater than 89 Random Glucose 97 Calcium 8.1 L D Lipase 1687 H Assessment and Plan - Assessment (1) Acute pancreatitis Code(s): K85.90 - Acute pancreatitis without necrosis or infection, unspecified Status: Acute (2) Liver cirrhosis Code(s): K74.60 - Unspecified cirrhosis of liver Status: Acute - Plan 62 y/o CM with PMHx of Alcoholism admitted for IP mgmt of Acute Pancreatitis, HD #2 1. Acute Pancreatits - Patient continues to drink despite the detrimental effect of alcohol with his health. - Cont. IVF - Lipase 1687 from 3537, if 2pm lab continued to improve will start clears - Toradol PRN, Antiemetics PRN. 2. Hepatitis C/Liver Cirrhosis: - Patient advised to follow-up outpatient with GI. 3. Alcohol Dependence: extensively counseled regarding the need to stop drinking alcohol. - [place] protocol 4. Hypokalemia: Replaced. Monitor BMP in AM. 5. Tobacco d=Dependence: counseled on cessation. 6. DVT PPx: Lovenox 7. Dispo: F/U lipase, advance to clears tonight, D/C tomorrow if tolerating PO. Code Status: full Discussed Condition With: patient and RN
[2017-11-25] MEDS: Morphine Sulfate Inj 2 MG/ML Vial IV.PUSH PRN ×2 (19:46→23:45)
[2017-11-26] MEDS: Sod Chloride 0.9% Inj 1,000 ML IV.CONT SCH ×3 (00:49→23:48)
[2017-11-26] MEDS: Morphine Sulfate Inj 2 MG/ML Vial IV.PUSH PRN ×5 (03:54→21:30)
[2017-11-26 06:46] LABS: Hematocrit 37.3 % (39.0-51.0); Hemoglobin 12.6 gm/dL (13.0-17.0); Mean Corpuscular HGB Conc 33.8 % (32.0-36.0); Mean Corpuscular Hemoglobin 33.2 pg (27.0-34.0); Mean Platelet Volume 8.3 fL (7.0-11.0); Platelet Count 189 th/mm3 (150-450); Red Blood Count 3.81 mil/mm3 (4.50-5.90); Red Cell Distribution Width 13.9 % (11.6-17.2); White Blood Count 5.6 th/mm3 (4.0-11.0)
[2017-11-26 07:17] LABS: Alanine Aminotransferase 34 U/L (12-78); Alkaline Phosphatase 89 U/L (45-117); Anion Gap 7 meq/L (5-15); Aspartate Aminotransferase 44 U/L (15-37); Blood Urea Nitrogen 7 mg/dL (7-18); Calcium 7.3 mg/dL (8.5-10.1); Chloride 112 meq/L (98-107); Glomerular Filtration Rate Greater Than 89 mL/min (>89); Glucose,Random 86 mg/dL (74-106); Lipase 1180 U/L (73-393); Potassium 3.7 meq/L (3.5-5.1); Sodium 143 meq/L (136-145); Total Protein 5.8 g/dL (6.4-8.2)
[2017-11-26 08:07] LABS: Hepatitis A IgM Antibody Nonreactive (Nonreactive); Hepatitits B Surface Antigen Nonreactive (Nonreactive)
[2017-11-26] MEDS: Enoxaparin Inj 40 MG/0.4 ML Syringe SQ SCH (09:31)
[2017-11-26] MEDS: Famotidine 20 MG Tablet PO SCH ×2 (09:32→21:29)
--- NOTE | 2017-11-26 10:48 | P.PN ---
Subjective Interval history: Patient doing well overnight, reports pain resolved with meds. Patient desires to eat this AM. No overnight concerns. Physical Exam Vital signs: Vital Signs 11/25/17 12:00 11/25/17 16:00 11/25/17 20:00 Temperature 98.2 F 98.3 F Pulse Rate 52 L 54 L Respiratory Rate 18 18 18 Blood Pressure 158/72 H 153/78 H Pulse Oximetry 97 97 11/26/17 00:00 11/26/17 04:00 11/26/17 08:00 Temperature 98.3 F 98.1 F 98.0 F Pulse Rate 60 59 L 52 L Respiratory Rate 20 20 16 Blood Pressure 146/80 H 136/72 127/75 Pulse Oximetry 96 96 99 Intake & Output 11/25/17 11/26/17 11/26/17 18:59 06:59 18:59 Intake Total 1000 / 1000 1020 / 1020 Balance 1000 / 1000 1020 / 1020 Weight 58.8 kg Intake: IV 1000 / 1000 1000 / 1000 NS Inj 1,000 ML @ 100 mls/hr IV 1000 / 1000 1000 / 1000 .CONT .Q10H [facility] Rx#:[id number] Oral Other: # Voids 3 Date of Last Bowel Movement 11/23/17 Narrative: GENERAL: thin male, in NAD, lying comfortable in bed SKIN: Warm and dry. HEAD: Normocephalic. EYES: No scleral icterus. No injection or drainage. NECK: Supple, trachea midline. No JVD or lymphadenopathy. CARDIOVASCULAR: Regular rate and rhythm without murmurs, gallops, or rubs. RESPIRATORY: Breath sounds equal bilaterally. No accessory muscle use. GASTROINTESTINAL: Abdomen soft, non-tender, nondistended. Neg rebound. MUSCULOSKELETAL: No cyanosis, or edema. BACK: Nontender without obvious deformity. No CVA tenderness. Results - Labs CBC & Chem 7: 11/26/17 06:09 11/26/17 06:09 Laboratory Results - last 24 hr 11/25/17 11/26/17 11/26/17 16:26 06:09 06:09 WBC 5.6 RBC 3.81 L Hgb 12.6 L Hct 37.3 L MCV 98.0 MCH 33.2 MCHC 33.8 RDW 13.9 Plt Count 189 MPV 8.3 Sodium 143 Potassium 3.7 Chloride 112 H Carbon Dioxide 24.0 Anion Gap 7 BUN 7 Creatinine 0.54 L Estimated GFR Greater than 89 Random Glucose 86 Calcium 7.3 L* D Prot Corrected Calcium 8.0 L Total Bilirubin 0.4 AST 44 H ALT 34 Alkaline Phosphatase 89 Total Protein 5.8 L D Albumin 3.0 L Lipase 2320 H 1180 H Hepatitis A IgM Ab Hep Bs Antigen Hep B Core IgM Ab Hep C IgG Ab 11/26/17 06:09 WBC RBC Hgb Hct MCV MCH MCHC RDW Plt Count MPV Sodium Potassium Chloride Carbon Dioxide Anion Gap BUN Creatinine Estimated GFR Random Glucose Calcium Prot Corrected Calcium Total Bilirubin AST ALT Alkaline Phosphatase Total Protein Albumin Lipase Hepatitis A IgM Ab Nonreactive Hep Bs Antigen Nonreactive Hep B Core IgM Ab Nonreactive Hep C IgG Ab Reactive H Assessment and Plan - Assessment (1) Acute pancreatitis Code(s): K85.90 - Acute pancreatitis without necrosis or infection, unspecified Status: Acute (2) Liver cirrhosis Code(s): K74.60 - Unspecified cirrhosis of liver Status: Acute - Plan 62 y/o CM with PMHx of Alcoholism admitted for IP mgmt of Acute Pancreatitis, HD #3 1. Acute Pancreatits, improving - Patient continues to drink despite the detrimental effect of alcohol with his health - Lipase 1091 today from 2320 yesterday, advancing to clears today - Toradol PRN, Antiemetics PRN, IVF - Advance diet as tolerated 2. Hepatitis C/Liver Cirrhosis: - Patient advised to follow-up outpatient with GI. 3. Alcohol Dependence: extensively counseled regarding the need to stop drinking alcohol. - [facility] protocol 4. Hypokalemia: resolved s/p replacement. 5. Tobacco Dependence: counseled on cessation. 6. DVT PPx: Lovenox 7. Dispo: advanced to clears in AM
[2017-11-27 00:31] VITALS: RESP 18
[2017-11-27] MEDS: Morphine Sulfate Inj 2 MG/ML Vial IV.PUSH PRN ×3 (01:30→09:18)
[2017-11-27] MEDS: Sod Chloride 0.9% Inj 1,000 ML IV.CONT SCH (05:37)
[2017-11-27 05:54] LABS: Alanine Aminotransferase 33 U/L (12-78); Albumin 2.7 g/dL (3.4-5.0); Anion Gap 7 meq/L (5-15); Aspartate Aminotransferase 43 U/L (15-37); Blood Urea Nitrogen 5 mg/dL (7-18); Calcium 7.6 mg/dL (8.5-10.1); Chloride 112 meq/L (98-107); Glomerular Filtration Rate Greater Than 89 mL/min (>89); Glucose,Random 85 mg/dL (74-106); Potassium 3.8 meq/L (3.5-5.1); Sodium 144 meq/L (136-145)
[2017-11-27 05:56] LABS: Alkaline Phosphatase 89 U/L (45-117); Total Protein 5.8 g/dL (6.4-8.2)
[2017-11-27] MEDS: Famotidine 20 MG Tablet PO SCH (09:13)
[2017-11-27] MEDS: Enoxaparin Inj 40 MG/0.4 ML Syringe SQ SCH (09:13)
--- NOTE | 2017-11-27 11:23 | P.PN ---
Subjective Interval history: Patient doing well overnight. Patient tolerated clear liquid diet last night and this AM. Patient admits to eating cookies last night that he got from the vending machine. Patient denies current abdominal pain, and feels that he is stable for discharge. Patient denies emesis, diarrhea ,fever, and chills. Physical Exam Vital signs: Vital Signs 11/26/17 12:00 11/26/17 16:00 11/26/17 19:17 Temperature 97.6 F 98.4 F 98.0 F Pulse Rate 54 L 58 L 50 L Respiratory Rate 16 16 17 Blood Pressure 132/67 167/75 H 156/68 H Pulse Oximetry 100 100 100 11/27/17 00:00 11/27/17 03:44 11/27/17 08:00 Temperature 98.1 F 98.0 F 97.7 F Pulse Rate 55 L 51 L 71 Respiratory Rate 18 18 18 Blood Pressure 158/71 H 151/71 H 136/82 Pulse Oximetry 95 96 98 11/27/17 09:22 Temperature Pulse Rate Respiratory Rate 18 Blood Pressure Pulse Oximetry Intake & Output 11/26/17 11/27/17 11/27/17 18:59 06:59 18:59 Intake Total 1000 / 1000 1480 / 1480 Balance 1000 / 1000 1480 / 1480 Weight 58.8 kg Intake: IV 1000 / 1000 1000 / 1000 NS Inj 1,000 ML @ 100 mls/hr IV 1000 / 1000 1000 / 1000 .CONT .Q10H [facility] Rx#:[id number] Oral 480 / 480 Other: # Voids 6 Date of Last Bowel Movement 11/23/17 11/26/17 11/26/17 # Bowel Movements 1 Narrative: GENERAL: thin male, in NAD, lying comfortable in bed SKIN: Warm and dry. HEAD: Normocephalic. EYES: No scleral icterus. No injection or drainage. NECK: Supple, trachea midline. No JVD or lymphadenopathy. CARDIOVASCULAR: Regular rate and rhythm without murmurs, gallops, or rubs. RESPIRATORY: Breath sounds equal bilaterally. No accessory muscle use. GASTROINTESTINAL: Abdomen soft, non-tender, nondistended. Neg rebound. MUSCULOSKELETAL: No cyanosis, or edema. BACK: Nontender without obvious deformity. No CVA tenderness. Results - Labs CBC & Chem 7: 11/26/17 06:09 11/27/17 04:49 Laboratory Results - last 24 hr 11/26/17 11/27/17 11:37 04:49 Sodium 144 Potassium 3.8 Chloride 112 H Carbon Dioxide 25.0 Anion Gap 7 BUN 5 L Creatinine 0.56 L Estimated GFR Greater than 89 Random Glucose 85 Calcium 7.6 L Total Bilirubin 0.4 AST 43 H ALT 33 Alkaline Phosphatase 89 Total Protein 5.8 L Albumin 2.7 L Lipase 1091 H Assessment and Plan - Assessment (1) Acute pancreatitis Code(s): K85.90 - Acute pancreatitis without necrosis or infection, unspecified Status: Acute (2) Liver cirrhosis Code(s): K74.60 - Unspecified cirrhosis of liver Status: Chronic (3) Alcohol abuse Code(s): F10.10 - Alcohol abuse, uncomplicated Status: Acute - Plan 62 y/o CM with PMHx of Alcoholism admitted for IP mgmt of Acute Pancreatitis, HD #4 1. Acute Pancreatits, improving - Patient continues to drink despite the detrimental effect of alcohol with his health - Lipase 1091 yesterday, pending AM lipase - Clears tolerated well - Toradol PRN, Antiemetics PRN, IVF - Advance diet as tolerated, if stable after lunch will D/C home 2. Hepatitis C/Liver Cirrhosis: - Patient advised to follow-up outpatient with GI. 3. Alcohol Dependence: extensively counseled regarding the need to stop drinking alcohol. - [place] protocol 4. Hypokalemia: resolved s/p replacement. 5. Tobacco Dependence: counseled on cessation. 6. DVT PPx: Lovenox 7. Dispo: advanced to regular diet, D/C this PM if stable and PO tolerated Code Status: full Discussed Condition With: patient
[2017-11-27 12:17] VITALS: BP 145/70; PULSE 58; TEMP 97.9; O2SAT 100
--- NOTE | 2017-11-27 13:12 | P.DS ---
Date of admission: 11/24/17 06:17 Primary care physician: NONE Attending physician on discharge: Kaylin Deleon Anticipated date of discharge: 11/27/17 Brief History from admission: This is a 62-year-old CM with PMHx of Alcohol Dependence, Liver cirrhosis, Hepatitis C, Chronic back pain, and recurrent Alcoholic Pancreatitis who presented to the ED due to abdominal pain x3 days. Patient reported that his last drink was 3 days ago, drinks 10 beers daily. Based on labs was admitted for acute pancreatitis. On admission denied nausea or vomiting. DS: Diagnosis - Discharge Diagnosis (1) Acute pancreatitis Status: Resolved (2) Liver cirrhosis Status: Chronic (3) Alcohol abuse Status: Acute DS: Summary Hospital Course: This is a 62 y/o CF with PMHx of Alcoholism and Hepatis C/Liver Cirrhosis admitted for IP mgmt of Acute Pancreatitis with lipase of 3537. Patient was placed on IVF, NPO, and managed with Toradol and Zofran. Diet was advanced on HD #3 with clears and on the day of D/C solids were tolerated well and without pain. Patient advised to F/U with GI as outpatient for hx of Hepatitis C/Liver Cirrhosis. Patient was educated on Alcohol Abuse. Hypokalemia on admission was resolved on day of D/C. Lipase on the day of D/C was 378. Patient advised to est. care with PCP or F/U in 1wk. - Time Spent with Patient Total time spent providing and/or coordinating discharge services: Greater than 30 minutes - Quality: AMI Clinical Trial Participant: No - Quality: VTE Deep Vein Thrombosis/Pulmonary Embolism Present on Admission: No Exam Vital signs: Vital Signs 11/26/17 16:00 11/26/17 19:17 11/27/17 00:00 Temperature 98.4 F 98.0 F 98.1 F Pulse Rate 58 L 50 L 55 L Respiratory Rate 16 17 18 Blood Pressure 167/75 H 156/68 H 158/71 H Pulse Oximetry 100 100 95 11/27/17 03:44 11/27/17 08:00 11/27/17 09:22 Temperature 98.0 F 97.7 F Pulse Rate 51 L 71 Respiratory Rate 18 18 18 Blood Pressure 151/71 H 136/82 Pulse Oximetry 96 98 11/27/17 12:00 Temperature 97.9 F Pulse Rate 58 L Respiratory Rate 18 Blood Pressure 145/70 H Pulse Oximetry 100 Intake & Output 11/26/17 11/27/17 11/27/17 18:59 06:59 18:59 Intake Total 1000 / 1000 1480 / 1480 1000 / 1000 Balance 1000 / 1000 1480 / 1480 1000 / 1000 Weight 58.8 kg Intake: IV 1000 / 1000 1000 / 1000 1000 / 1000 NS Inj 1,000 ML @ 100 mls/hr IV 1000 / 1000 1000 / 1000 1000 / 1000 .CONT .Q10H [facility] Rx#:[id number] Oral 480 / 480 Other: # Voids 6 Date of Last Bowel Movement 11/23/17 11/26/17 11/26/17 # Bowel Movements 1 Narrative: GENERAL: thin male, in NAD, lying comfortable in bed SKIN: Warm and dry. HEAD: Normocephalic. EYES: No scleral icterus. No injection or drainage. NECK: Supple, trachea midline. No JVD or lymphadenopathy. CARDIOVASCULAR: Regular rate and rhythm without murmurs, gallops, or rubs. RESPIRATORY: Breath sounds equal bilaterally. No accessory muscle use. GASTROINTESTINAL: Abdomen soft, non-tender, nondistended. Neg rebound. MUSCULOSKELETAL: No cyanosis, or edema. BACK: Nontender without obvious deformity. No CVA tenderness. Results Procedures completed during hospitalization: n/a Labs on day of discharge: Labs from last 24 hours 11/27/17 11/27/17 12:15 04:49 Sodium 144 Potassium 3.8 Chloride 112 H Carbon Dioxide 25.0 Anion Gap 7 BUN 5 L Creatinine 0.56 L Estimated GFR Greater than 89 Random Glucose 85 Calcium 7.6 L Total Bilirubin 0.4 AST 43 H ALT 33 Alkaline Phosphatase 89 Total Protein 5.8 L Albumin 2.7 L Lipase 378 - Impressions ITS Impressions Abdomen/Pelvis CT 11/24/17 04:10 CONCLUSION: No significant change from prior exam with stigmata of chronic pancreatitis. Cannot exclude some degree of acute pancreatitis. Discharge Plan - Discharge Disposition Patient Disposition: 01 Discharge Home - Discharge Condition Condition: Serious - Discharge Order Discharge Orders: Discharge Order (Routine); Ordered 11/27/17 Ordered By: Kaylin Deleon - Physicians Team Primary Care Provider: UNKNOWN, Attending Provider: Kaylin Deleon Other Providers: [employer]
[2017-12-14] MEDS ORDERED: Piperacil/Tazo 4.5 GM Premix 4.5 GM/100 ML BAG IV.SIG SCH (20:00)
== END 2017-11-27 14:23 | disposition home or self-care (01) ==
LOC: NEPE 03:26 → NEDA 03:26 → N06 08:11
PROVIDERS: ADMIT Family Medicine; ATTEND Family Medicine

== ENCOUNTER 2017-12-14 12:23 | Inpatient (IN) ==
[2017-12-14] MEDS ORDERED: Sod Chloride 0.9% Inj 1,000 ML IV.SIG ONE (15:29)
[2017-12-14] MEDS ORDERED: Morphine Inj 4 MG/ML Vial IV.PUSH ONE (15:29)
--- NOTE | 2017-12-14 15:37 | ED ---
HPI General Chief Complaint: Abdominal Pain Stated Complaint: Medical Time Seen by Provider: 12/14/17 15:26 Source: patient Mode of arrival: ambulatory Limitations: no limitations History of Present Illness HPI narrative: The patient is a 62-year-old male who presents to the emergency department for abdominal pain. The patient's abdomen pain started this morning, is epigastric, radiates to the back, and his associate with nausea. The patient does have a history of similar symptoms in the past secondary to pancreatitis. The patient's last drink of alcohol was this morning. The patient denies any history of known gallbladder cirrhosis secondary to chronic alcohol abuse. He denies any fever, chills, or sweats. He does note a loose bowel movement earlier today. MD complaint: Reports abdominal pain Onset (ago): hour(s) Pain Consistency: constant Location: Reports epigastric Severity: moderate Severity scale (1-10): 7 Quality: Reports stabbing and sharp Radiation: Reports R flank and back Migration to: Reports no migration Relieving factors: nothing Exacerbating factors: other Context: Reports history of similar episodes Associated symptoms: Reports nausea and diarrhea Related Data Home Medications Medication Instructions Recorded Confirmed hydrocodone-acetaminophen 1 tab PO Q4H PRN 09/03/17 12/14/17 famotidine 20 mg PO BID 11/24/17 12/14/17 [id number] [Creon] 3,000 units PO BID 11/24/17 12/14/17 Previous Rx's Medication Instructions Recorded thiamine HCl (vitamin B1) 100 mg PO DAILY #30 tab 09/05/17 Allergies Allergy/AdvReac Type Severity Reaction Status Date / Time codeine AdvReac Mild SWEATS Verified 12/14/17 15:30 Review of Systems ROS: all other systems reviewed are negative [facility] Family History Family History Other Family history non-contributory Social History Social History Substance History: No History of Abuse Second Hand Smoke Exposure: Yes Smoking Status: Heavy tobacco smoker Tobacco Type: Cigarettes How Often Do You Have a Drink Containing Alcohol: 4 or more times a week Recent Travel in [facility] within the Last 8 Weeks: No Recent Out of Country Travel within the Last 8 Weeks: No Immunization History Tetanus Immunization: <5 Years Tetanus Immunization Year if Known: 2016 Exam Narrative Exam Narrative: GENERAL: Awake, alert, pleasant 62-year-old male who appears his stated age and is in no acute respiratory distress. SKIN: Focused skin assessment warm/dry. HEAD: Atraumatic. Normocephalic. EYES: Pupils equal and round. Mild icterus. ENT: No nasal bleeding or discharge. Mucous membranes pink and moist. NECK: Trachea midline. No JVD. CARDIOVASCULAR: Regular rate and rhythm. No murmur appreciated. RESPIRATORY: No accessory muscle use. Clear to auscultation. Breath sounds equal bilaterally. GASTROINTESTINAL: Abdomen soft, enlarged liver border, epigastric tenderness but no guarding or rigidity. MUSCULOSKELETAL: No obvious deformities. No clubbing. No cyanosis. No edema. NEUROLOGICAL: Awake and alert. No obvious cranial nerve deficits. Motor grossly within normal limits. Normal speech. PSYCHIATRIC: Appropriate mood and affect; insight and judgment normal. Course Initial Documented Vital Signs Temperature 98.2 F 12/14/17 12:46 Pulse Rate 57 L 12/14/17 12:46 Respiratory Rate 18 12/14/17 12:46 Blood Pressure 171/92 H 12/14/17 12:46 Pulse Oximetry 99 12/14/17 12:46 Last Documented Vital Signs Temperature 98.2 F 12/14/17 12:46 Pulse Rate 65 12/14/17 15:34 Respiratory Rate 21 12/14/17 15:34 Blood Pressure 197/93 H 12/14/17 15:34 Pulse Oximetry 99 12/14/17 15:34 Medical Decision Making MDM Narrative Medical decision making narrative: IV was established, labs are drawn and sent, and the patient was placed on cardiac telemetry monitoring and continuous pulse oximetry monitoring. The patient was administered morphine, Zofran, Pepcid, and IV fluids. The patient's lipase is elevated greater than 2000 consistent with acute pancreatitis. The patient has a history of alcoholic pancreatitis, I doubt a gallstone. He does have a history of a pseudocyst, I do not believe there is an acute indication for imaging. The patient will be admitted to the on-call medical service. I discussed the patient with Dr. Quintero who agrees with admission. Medical Screen Exam Complete: Yes Emergency Medical Condition: Yes Differential Diagnosis Differential Diagnosis: Differential diagnosis includes pancreatitis, gastritis , peptic ulcer disease, esophagitis, alcohol abuse. Lab Data Lab results reviewed: Yes I reviewed the patient's lab results. Lab results narrative: The patient's lipase level was 2970 Result diagrams: 12/14/17 15:41 12/14/17 15:41 Lab Results 12/14/17 12/14/17 12/14/17 Range/Units 15:41 15:41 15:41 WBC 14.1 H (4.0-11.0) th/mm3 RBC 4.70 (4.50-5.90) mil/mm3 Hgb 15.9 (13.0-17.0) gm/dL Hct 46.6 (39.0-51.0) % MCV 99.1 (80.0-100.0) fL MCH 33.8 (27.0-34.0) pg MCHC 34.1 (32.0-36.0) % RDW 14.4 (11.6-17.2) % Plt Count 296 D (150-450) th/mm3 MPV 8.3 (7.0-11.0) fL Neut % (Auto) 80.4 H (16.0-70.0) % Lymph % (Auto) 12.7 (9.0-44.0) % Fountain % (Auto) 5.9 (0.0-8.0) % Eos % (Auto) 0.4 (0.0-4.0) % Baso % (Auto) 0.6 (0.0-2.0) % Neut # (Auto) 11.3 H (1.8-7.7) th/mm3 Lymph # (Auto) 1.8 (1.0-4.8) th/mm3 Fountain # (Auto) 0.8 (0.0-0.9) th/mm3 Eos # (Auto) 0.1 (0.0-0.4) th/mm3 Baso # (Auto) 0.1 (0.0-0.2) th/mm3 WBC Differential . Differential Comment Auto diff final Sodium 136 (136-145) meq/L Potassium 3.9 (3.5-5.1) meq/L Chloride 102 (98-107) meq/L Carbon Dioxide 21.4 (21.0-32.0) meq/L Anion Gap 13 (5-15) meq/L BUN 11 (7-18) mg/dL Creatinine 0.91 (0.60-1.30) mg/dL Random Glucose 112 H (74-106) mg/dL Lactic Acid 1.1 (0.4-2.0) mmol/L Calcium 9.0 (8.5-10.1) mg/dL Total Bilirubin 0.6 (0.2-1.0) mg/dL AST 97 H (15-37) U/L ALT 77 (12-78) U/L Alkaline Phosphatase 119 H (45-117) U/L Total Protein 8.7 H (6.4-8.2) g/dL Albumin 4.6 (3.4-5.0) g/dL Lipase 2970 H (73-393) U/L Discharge Plan Discharge Disposition Patient Disposition: 30 Still Patient Discharge Condition Condition: Stable Discharge Details Diagnosis: Acute alcoholic pancreatitis, Alcohol abuse Physicians Team ED Provider: Jaime Ulloa Rxs /Orders / Referrals /Forms Prescriptions: No Action hydrocodone-acetaminophen 7.5-325 mg Tablet 1 tab PO Q4H PRN (Reason: Pain) RF: 0 thiamine HCl (vitamin B1) 100 mg Tablet 100 mg PO DAILY Qty: 30 RF: 0 famotidine 20 mg Tablet 20 mg PO BID RF: 0 [id number] [Creon] 3,000-9,500- 15,000 unit Capsule,Delayed Release(Dr/Ec) 3,000 units PO BID RF: 0 Discharge Interventions Interventions: Vital Signs Last Done: 12/14/17 15:34 Status ED Status: Admitted Patient
[2017-12-14] MEDS: Famotidine PF Inj 20 MG/2 ML Vial IV.PUSH ONE ×2 (15:39→17:26)
[2017-12-14 15:57] LABS: Baso # (Auto) 0.1 th/mm3 (0.0-0.2); Baso % (Auto) 0.6 % (0.0-2.0); Eos # (Auto) 0.1 th/mm3 (0.0-0.4); Eos % (Auto) 0.4 % (0.0-4.0); Hematocrit 46.6 % (39.0-51.0); Hemoglobin 15.9 gm/dL (13.0-17.0); Lymph # (Auto) 1.8 th/mm3 (1.0-4.8); Lymph % (Auto) 12.7 % (9.0-44.0); Mean Corpuscular HGB Conc 34.1 % (32.0-36.0); Mean Corpuscular Hemoglobin 33.8 pg (27.0-34.0); Mean Corpuscular Volume 99.1 fL (80.0-100.0); Mean Platelet Volume 8.3 fL (7.0-11.0); Mono # (Auto) 0.8 th/mm3 (0.0-0.9); Mono % (Auto) 5.9 % (0.0-8.0); Neut # (Auto) 11.3 th/mm3 (1.8-7.7); Neut % (Auto) 80.4 % (16.0-70.0); Platelet Count 296 th/mm3 (150-450); Red Cell Distribution Width 14.4 % (11.6-17.2); White Blood Count 14.1 th/mm3 (4.0-11.0)
[2017-12-14 16:11] LABS: Albumin 4.6 g/dL (3.4-5.0); Anion Gap 13 meq/L (5-15); Aspartate Aminotransferase 97 U/L (15-37); Blood Urea Nitrogen 11 mg/dL (7-18); Carbon Dioxide 21.4 meq/L (21.0-32.0); Chloride 102 meq/L (98-107); Glucose,Random 112 mg/dL (74-106); Potassium 3.9 meq/L (3.5-5.1); Sodium 136 meq/L (136-145)
[2017-12-14 16:15] LABS: Alanine Aminotransferase 77 U/L (12-78); Alkaline Phosphatase 119 U/L (45-117); Lipase 2970 U/L (73-393); Total Protein 8.7 g/dL (6.4-8.2)
[2017-12-14 17:37] LABS: Bilirubin,Urine Negative (Negative); Clarity,Urine Clear (Clear); Color,Urine Yellow (Yellw/Straw); Glucose,Urine (UA) Negative (Negative); Hyaline Casts,Urine 1 /lpf (0-3); Leukocyte Esterase,Urine Negative (Negative); Mucus,Urine Few /lpf (Occasional); Nitrite,Urine Negative (Negative)
[2017-12-14] MEDS ORDERED: Bisacodyl 10 MG Supp RECTAL PRN (17:39)
[2017-12-14] MEDS ORDERED: LORazepam 1 MG Tablet PO PRN (17:46)
[2017-12-14] MEDS ORDERED: Haloperidol Inj 5 MG/ML Ampul IV.PUSH PRN (17:46)
--- NOTE | 2017-12-14 18:15 | P.HP ---
History of Present Illness Service: Hospitalist Primary Care Physician: Deandre Guido Chief Complaint: Abdominal pain, nausea History of Present Illness: This is a 62-year-old male with a past medical history significant for alcohol dependence, liver cirrhosis, hepatitis C, chronic back pain and recurrent alcoholic pancreatitis who presents to [facility] ED with complaints of severe abdominal pain. Patient states that his pain began this morning soon after drinking a beer. He complains of severe sharp stabbing epigastric pain that radiates to his back. He reports nausea but denies any vomiting. He denies any fever or chills. He denies any chest pain. He reports shortness of breath secondary to severe epigastric pain. He complains of diarrhea with two loose stools earlier today and one last night. He denies any blood in the stool. He denies any hematuria or dysuria. Patient states he had one beer this morning. In the ED, CBC significant for leukocytosis with white count of 14.1. CMP significant for elevated AST of 97 and alk phos of 119. Calcium level is normal at 9.0. Lipase level elevated at 2970. Patient is hypertensive with blood pressure of 197/93. He is afebrile. Patient has had multiple admissions for acute pancreatitis last one being November 24 of this year. Review of Systems All other systems reviewed negative except as stated in HPI PMFSH - History History Provided By: Patient - Medical History Medical History: Medical History (Last Updated 12/14/17 @ 18:22 by Emily Dunbar) COPD (chronic obstructive pulmonary disease) Colitis Hepatitis C History of cirrhosis of liver Pancreatitis - Surgical History Surgical History: Surgical History (Last Reviewed 12/14/17 @ 18:04 by Emily Dunbar) Hx of colonoscopy - Family History Family History: Family History (Last Updated 12/14/17 @ 18:23 by Emily Dunbar) Brother Colon cancer - Social History I have reviewed the patient's Social History: Yes - Tobacco History Second Hand Smoke Exposure: Yes Tobacco Use In Past 30 Days: Yes Smoking Status: Heavy tobacco smoker Tobacco Type: Cigarettes - Alcohol History How Often Do You Have a Drink Containing Alcohol: 4 or more times a week - Substance Use History Substance History: Active Abuse - Travel History Recent Travel in the [place] Within the Last 8 Weeks: No Recent Travel Out of the Country Within the Last 8 Weeks: No - Immunization History Tetanus Immunization: <5 Years Tetanus Immunization Year if Known: 2015 Medications and Allergies Active Medications: Active Medications Al Hydroxide/Mg Hydroxide (Milk Of Magnesia Liq) 30 ml PO Q12H PRN PRN Reason: Mild Constipation Bisacodyl (Dulcolax Supp) 10 mg RECTAL DAILY PRN PRN Reason: SEVERE CONSITIPATION Flumazenil (Romazecon Inj) 0.2 mg IV.PUSH Q1M PRN PRN Reason: OVERSEDATION Haloperidol Lactate (Haldol Inj) 1 mg IV.PUSH Q15M PRN PRN Reason: for severe agitation Sodium Chloride (Ns Inj) 1,000 mls @ 125 mls/hr IV.CONT .Q8H MONSTER Ketorolac Tromethamine (Toradol Inj) 15 mg IV.PUSH Q6H PRN PRN Reason: PAIN SCALE 1 TO 10 Lactulose (Lactulose Liq) 30 ml PO DAILY PRN PRN Reason: SEVERE CONSITIPATION Lorazepam (Ativan) 1 mg PO Q4H PRN PRN Reason: for CIWA 8-10 Lorazepam (Ativan) 2 mg PO Q2H PRN PRN Reason: for CIWA 11-14 Lorazepam (Ativan Inj) 2 mg IV.PUSH Q2H PRN PRN Reason: for CIWA 11-14 Lorazepam (Ativan Inj) 2 mg IV.PUSH Q1H PRN PRN Reason: for CIWA 15-20 Lorazepam (Ativan Inj) 2 mg IV.PUSH Q15M PRN PRN Reason: for CIWA > 20 Lorazepam (Ativan Inj) 1 mg IV.PUSH Q4H PRN PRN Reason: for CIWA 8-10 Ondansetron HCl (Zofran Inj) 4 mg IV.PUSH Q6H PRN PRN Reason: NAUSEA OR VOMITING Sennosides (Senokot) 17.2 mg PO Q12H PRN PRN Reason: Moderate Constipation Sodium Chloride (Ns Flush) 2 ml IV.FLUSH PRN PRN PRN Reason: FLUSH AFTER USING IV ACCESS Thiamine HCl (Thiamine Inj) 100 mg IM ONCE ONE Stop: 12/14/17 17:46 Allergies Allergy/AdvReac Type Severity Reaction Status Date / Time codeine AdvReac Mild SWEATS Verified 12/14/17 15:30 Home Medications Medication Instructions Recorded Confirmed Type hydrocodone-acetaminophen 1 tab PO Q4H PRN 09/03/17 12/14/17 History famotidine 20 mg PO BID 11/24/17 12/14/17 History rppope-cmeughqx-eyjummn [Creon] 3,000 units PO BID 11/24/17 12/14/17 History Exam Vital signs: Vital Signs 12/14/17 12:46 12/14/17 15:34 12/14/17 17:25 Temperature 98.2 F Pulse Rate 57 L 65 Respiratory Rate 18 21 Blood Pressure 171/92 H 197/93 H 191/93 H Pulse Oximetry 99 99 Intake & Output 12/13/17 12/14/17 12/14/17 18:59 06:59 18:59 Intake Total 1000 / 1000 Balance 1000 / 1000 Weight 58.967 kg Intake: IV 1000 / 1000 NS Inj 1,000 ML @ Wide Open IV. 1000 / 1000 SIG BOLUS ONE Rx#:[id number] Narrative: GENERAL: WDWN male patient, in no acute distress. Appears older than stated age. Awake and alert. SKIN: Warm and dry. HEAD: Atraumatic. Normocephalic. EYES: Pupils equal and round. No scleral icterus. No injection or drainage. ENT: No nasal bleeding or discharge. Mucous membranes pink and moist. NECK: Trachea midline. CARDIOVASCULAR: Regular rate and rhythm. No murmurs auscultated. RESPIRATORY: No accessory muscle use. Fair air entry. Clear to auscultation. Breath sounds equal bilaterally. GASTROINTESTINAL: Abdomen soft, nondistended. +diffusely tender to palpation but moreso over right upper quadrant and epigastrium. Hypoactive BS. MUSCULOSKELETAL: Extremities without clubbing, cyanosis, or edema. No obvious deformities. NEUROLOGICAL: Awake and alert. No obvious cranial nerve deficits. Motor grossly within normal limits. Able to move all extremities spontaneously. Normal speech. PSYCHIATRIC: Appropriate mood and affect; insight and judgment poor. Results - Labs CBC & Chem 7: 12/14/17 15:41 12/14/17 15:41 Labs: Laboratory Results - last 24 hr 12/14/17 12/14/17 12/14/17 15:41 15:41 15:41 WBC 14.1 H RBC 4.70 Hgb 15.9 Hct 46.6 MCV 99.1 MCH 33.8 MCHC 34.1 RDW 14.4 Plt Count 296 D MPV 8.3 Neut % (Auto) 80.4 H Lymph % (Auto) 12.7 [place] % (Auto) 5.9 Eos % (Auto) 0.4 Baso % (Auto) 0.6 Neut # (Auto) 11.3 H Lymph # (Auto) 1.8 [place] # (Auto) 0.8 Eos # (Auto) 0.1 Baso # (Auto) 0.1 WBC Differential . Differential Comment Auto diff final Sodium 136 Potassium 3.9 Chloride 102 Carbon Dioxide 21.4 Anion Gap 13 BUN 11 Creatinine 0.91 Random Glucose 112 H Lactic Acid 1.1 Calcium 9.0 Total Bilirubin 0.6 AST 97 H ALT 77 Alkaline Phosphatase 119 H Total Protein 8.7 H Albumin 4.6 Lipase 2970 H Urine Color Urine Clarity Urine pH Ur Specific [place] Urine Protein Urine Glucose (UA) Urine Ketones Urine Occult Blood Urine Nitrate Urine Bilirubin Urine Urobilinogen Ur Leukocyte Esterase Urine RBC Urine WBC Hyaline Casts Urine Mucus Micro UA Comment Ur Microscopic Review Urine Culture Comments 12/14/17 17:22 WBC RBC Hgb Hct MCV MCH MCHC RDW Plt Count MPV Neut % (Auto) Lymph % (Auto) [place] % (Auto) Eos % (Auto) Baso % (Auto) Neut # (Auto) Lymph # (Auto) [place] # (Auto) Eos # (Auto) Baso # (Auto) WBC Differential Differential Comment Sodium Potassium Chloride Carbon Dioxide Anion Gap BUN Creatinine Random Glucose Lactic Acid Calcium Total Bilirubin AST ALT Alkaline Phosphatase Total Protein Albumin Lipase Urine Color Yellow Urine Clarity Clear Urine pH 5.0 Ur Specific [place] 1.010 Urine Protein Negative Urine Glucose (UA) Negative Urine Ketones Trace H Urine Occult Blood Negative Urine Nitrate Negative Urine Bilirubin Negative Urine Urobilinogen Less than 2 Ur Leukocyte Esterase Negative Urine RBC Less than 1 Urine WBC 1 Hyaline Casts 1 Urine Mucus Few H Micro UA Comment Culture not ind Ur Microscopic Review Not Reportable Urine Culture Comments Culture not ind Caprini VTE Risk Assessment Caprini VTE Risk Assessment: No/Low Risk (score <= 1) Caprini Risk Assessment Model: Point Value = 1 Point Value = 2 Point Value = 3 Point Value = 5 Age 41-60 Minor surgery BMI > 25 kg/m2 Swollen legs Varicose veins or History of unexplained or recurrent spontaneous Oral contraceptives or hormone replacement Sepsis (< 1 month) Serious lung disease, including pneumonia (< 1 month) Abnormal pulmonary function Acute myocardial infarction Congestive heart failure (< 1 month) History of inflammatory bowel disease Medical patient at bed rest Age 61-74 Arthroscopic surgery Major open surgery (> 45 min) Laparoscopic surgery (> 45 min) Malignancy Confined to bed (> 72 hours) Immobilizing plaster cast Central venous access Age >= 75 History of VTE Family history of VTE Factor V Leiden Prothrombin [id number] Lupus anticoagulant Anticardiolipin antibodies Elevated serum homocysteine Heparin-induced thrombocytopenia Other congenital or acquired thrombophilia Stroke (< 1 month) Elective arthroplasty Hip, pelvis, or leg fracture Acute spinal cord injury (< 1 month) Prophylaxis Regimen: Total Risk Factor Score Risk Level Prophylaxis Regimen 0-1 Low Early ambulation 2 Moderate Order ONE of the following: *Sequential Compression Device (SCD) *Heparin 5000 units SQ BID 3-4 Higher Order ONE of the following medications: *Heparin 5000 units SQ TID *Enoxaparin/Lovenox 40 mg SQ daily (WT < 150 kg, CrCl > 30 mL/min) *Enoxaparin/Lovenox 30 mg SQ daily (WT < 150 kg, CrCl > 10-29 mL/min) *Enoxaparin/Lovenox 30 mg SQ BID (WT < 150 kg, CrCl > 30 mL/min) AND/OR *Sequential Compression Device (SCD) 5 or more Highest Order ONE of the following medications: *Heparin 5000 units SQ TID (Preferred with Epidurals) *Enoxaparin/Lovenox 40 mg SQ daily (WT < 150 kg, CrCl > 30 mL/min) *Enoxaparin/Lovenox 30 mg SQ daily (WT < 150 kg, CrCl > 10-29 mL/min) *Enoxaparin/Lovenox 30 mg SQ BID (WT < 150 kg, CrCl > 30 mL/min) AND *Sequential Compression Device (SCD) Assessment and Plan - Plan 62-year-old male with a past medical history significant for alcohol dependence , liver cirrhosis, hepatitis C, chronic back pain and recurrent alcoholic pancreatitis who presents to [facility] ED with complaints of severe abdominal pain. Acute on chronic alcoholic pancreatitis Patient admits to drinking a beer this morning Lipase 2970 -Aggressive IV fluid hydration -obtain CT abd/pelvis -Pain management with Toradol, patient reports no relief with Morphine -N.p.o., okay for ice chips -IV antiemetics as needed -repeat Lipase in am -monitor electrolytes Leukocytosis white count elevated at 14.1, possibly reactive patient is afebrile UA neg -obtain CXR -lactic acid sepsis protocol -CT abd/pelvis ordered -will cover empirically with IV Zosyn -Monitor white count Hypertensive, no reported hx of HTN Suspect secondary to abdominal pain -Clonidine prn -monitor BP and will initiate scheduled antihypertensive management if indicated Diarrhea Patient reports 3 loose stools, one last night and 2 this morning -send for C diff, enteric pathogens -Hold scheduled stool softener -Monitor stool output COPD, not in acute exacerbation Ongoing tobaccoism -Discussed tobacco cessation -Duonebs as needed -monitor respiratory status Hepatitis C/liver Cirrhosis -Patient needs to follow-up with GI as outpatient Alcohol abuse/dependence -Patient counseled on importance of complete alcohol cessation -CIWA protocol -give IM Thiamine x 1 now, will begin po thiamine and folic acid when able to tolerate po meds DVT PPX SCD/MAX crystal Code Status: Full Discussed Condition With: patient, nursing staff, Dr. Quintero
[2017-12-14] MEDS: Sod Chloride 0.9% Inj 1,000 ML IV.CONT SCH (19:14)
[2017-12-14] MEDS: Ketorolac Inj 30 MG/ML (IVP) Vial IV.PUSH PRN (19:44)
[2017-12-14] MEDS ORDERED: Diatrizoate Meglum/Diatrizoate Sod Liq 9 ML UDC PO ONE (21:45)
[2017-12-14] MEDS ORDERED: HYDROmorphone PF Inj 2 MG/ML Vial IV.PUSH PRN (21:49)
[2017-12-14] MEDS: Insulin NovoLOG Aspart Correctional Sugar Inj SQ SCH (23:19)
[2017-12-14] MEDS: Famotidine PF Inj 20 MG/2 ML Vial IV.PUSH SCH (23:20)
--- NOTE | 2017-12-15 00:49 | CT ---
EXAM DATE: 12/15/2017 12:27 AM EDT AGE/SEX: 62 years / Male INDICATIONS: Epigastric abdominal pain and diarrhea. CLINICAL DATA: This is the patient's initial encounter. Patient reports that signs and symptoms have been present for 2 days and indicates a pain score of 8/10. MEDICAL/SURGICAL HISTORY: Cirrhosis. Pancreatitis. Hepatitis C. COPD. Colitis. None. ORAL CONTRAST: Prescribed oral contrast ingested. RADIATION DOSE: 6.64 CTDI (mGy) [place] [facility] [place] [facility] [place] CONTRA ST[place] 09/[place]/2017. . TECHNIQUE: Multiple contiguous axial images were obtained through the abdomen and pelvis following b olus infusion of 70 ml Omnipaque 350 (iohexol) nonionic water-soluble contrast as a single exam dos e. Prescribed oral contrast ingested. Using automated exposure control and adjustment of the mA and/ or kV according to patient size, radiation dose was kept as low as reasonably achievable to obtain op timal diagnostic quality images. DICOM format image data is available electronically for review and comparison. FINDINGS: Lower chest: There are mild emphysematous changes at the lung bases. No acute pulmonary abnormality i s identified. Hepatobiliary: The liver demonstrates morphology with nodular contour characteristic of cirrhosis. No focal liver lesion is identified. Portal vein is within normal limits. Gallbladder is distended and there is no intrahepatic bile duct dilatation. No calcified gallstones are present. Gallbladder is di stended. There is no wall thickening. Kidneys: No hydronephrosis, stone, or mass. There is a low-density lesion in the lower pole the left kidney measuring 1.8 cm. It has density measurements characteristic of a simple cyst. Adrenal Glands: Within normal limits. Spleen: Within normal limits. Pancreas: Pancreas demonstrates changes characteristic of chronic pancreatitis including calcificatio ns within the pancreatic head and uncinate process, possible ductal calcifications with mildly dilate d main duct in the body measuring up to 6 mm. There are 2 cystic lesions identified, one in the tail measuring 2.4 cm and another in the head measuring 2 cm. These are both stable in size. There is infl ammation within the adjacent retroperitoneal fat and the inflammatory changes extend into the small b owel mesentery. There is no free intraperitoneal air. Vascular: The aorta is nonaneurysmal. There is moderate to severe atherosclerotic disease. Bowel/Mesentery: The stomach and small bowel demonstrate no abnormality. No acute colon abnormality i s seen. There is no free intraperitoneal air or fluid. Abdominal Wall: No hernia is visualized. Retroperitoneum: No lymphadenopathy. Bladder: No wall thickening or mass. Reproductive: Within normal limits. Inguinal: No lymphadenopathy is present. There is a small fat-containing left inguinal hernia. Musculoskeletal: No acute osseous abnormality is identified. There are degenerative changes of the [place] mbar spine. CONCLUSION: 1. Pancreas changes indicative of chronic pancreatitis with 2 stable cystic lesions measuring up to 2.4 cm. These may represent pancreatic pseudocysts. There are new inflammatory changes in the [place] creatic fat and small bowel mesentery suggesting acute inflammation/pancreatitis. 2. Liver changes characteristic of cirrhosis. No focal liver lesion is identified. 3. Moderate to severe atherosclerotic disease. Electronically signed by: Juan Manuel Downey MD 12/15/2017 12:48 AM EDT
[2017-12-15] MEDS: HYDROmorphone PF Inj 2 MG/ML Vial IV.PUSH PRN ×3 (01:28→13:07)
[2017-12-15] MEDS: Sod Chloride 0.9% Inj 1,000 ML IV.CONT SCH ×3 (01:30→16:44)
[2017-12-15] MEDS: Ketorolac Inj 30 MG/ML (IVP) Vial IV.PUSH PRN ×2 (03:02→19:06)
[2017-12-15 06:16] LABS: Baso # (Auto) 0.1 th/mm3 (0.0-0.2); Baso % (Auto) 1.1 % (0.0-2.0); Eos # (Auto) 0.1 th/mm3 (0.0-0.4); Eos % (Auto) 1.6 % (0.0-4.0); Hematocrit 41.3 % (39.0-51.0); Lymph # (Auto) 1.7 th/mm3 (1.0-4.8); Lymph % (Auto) 21.7 % (9.0-44.0); Mean Corpuscular HGB Conc 33.8 % (32.0-36.0); Mean Corpuscular Hemoglobin 33.2 pg (27.0-34.0); Mean Corpuscular Volume 98.1 fL (80.0-100.0); Mean Platelet Volume 8.5 fL (7.0-11.0); Mono # (Auto) 0.6 th/mm3 (0.0-0.9); Mono % (Auto) 7.5 % (0.0-8.0); Neut # (Auto) 5.4 th/mm3 (1.8-7.7); Neut % (Auto) 68.1 % (16.0-70.0); Platelet Count 232 th/mm3 (150-450); Red Blood Count 4.21 mil/mm3 (4.50-5.90); Red Cell Distribution Width 14.5 % (11.6-17.2); White Blood Count 7.9 th/mm3 (4.0-11.0)
[2017-12-15 06:43] LABS: Albumin 3.7 g/dL (3.4-5.0); Anion Gap 10 meq/L (5-15); Aspartate Aminotransferase 63 U/L (15-37); Blood Urea Nitrogen 9 mg/dL (7-18); Calcium 8.2 mg/dL (8.5-10.1); Carbon Dioxide 20.7 meq/L (21.0-32.0); Chloride 106 meq/L (98-107); Glomerular Filtration Rate Greater Than 89 mL/min (>89); Glucose,Random 86 mg/dL (74-106); Potassium 3.5 meq/L (3.5-5.1); Sodium 137 meq/L (136-145)
[2017-12-15 06:51] LABS: Alanine Aminotransferase 54 U/L (12-78); Alkaline Phosphatase 97 U/L (45-117); Lipase 1611 U/L (73-393); Total Protein 6.9 g/dL (6.4-8.2)
--- NOTE | 2017-12-15 08:59 | P.PN ---
Subjective Interval history: This is a pleasant 62 y/o male with alcohol dependence, Cirrhosis, hepatitis C, Chronic back pain, who came to ER with Abdominal pain, nausea but no vomit, loose stools, leukocytosis with white count of 14.1. CMP significant for elevated AST of 97 and alk phos of 119. Calcium level is normal at 9.0. Lipase level elevated at 2970. Patient is hypertensive with blood pressure of 197/93. He is afebrile. Patient has had multiple admissions for acute pancreatitis last one being November 24 of this year. has also COPD. 12/15: Stable seen in his bedroom, improving Laboratory esparza, also clinically, no new issues, no nausea, vomit or diarrhea, will continue with Cardiac diet and follow laboratory in am if improving will discharge Home. Physical Exam Vital signs: Vital Signs 12/14/17 12:46 12/14/17 15:34 12/14/17 17:25 Temperature 98.2 F Pulse Rate 57 L 65 Respiratory Rate 18 21 Blood Pressure 171/92 H 197/93 H 191/93 H Pulse Oximetry 99 99 12/14/17 20:00 12/14/17 23:19 12/14/17 23:20 Temperature 97.5 F L Pulse Rate 51 L Respiratory Rate 20 20 20 Blood Pressure 145/69 H Pulse Oximetry 97 12/15/17 00:00 12/15/17 03:06 12/15/17 06:29 Temperature 97.7 F Pulse Rate 70 Respiratory Rate 18 18 18 Blood Pressure 134/73 Pulse Oximetry 94 L 12/15/17 08:00 Temperature 97.4 F L Pulse Rate 58 L Respiratory Rate 18 Blood Pressure 127/66 Pulse Oximetry 95 Intake & Output 12/14/17 12/15/17 12/15/17 18:59 06:59 18:59 Intake Total 1000 / 1000 1100 / 1100 Balance 1000 / 1000 1100 / 1100 Weight 58.967 kg 61 kg Intake: IV 1000 / 1000 1000 / 1000 NS Inj 1,000 ML @ 125 mls/hr IV 1000 / 1000 .CONT .Q8H MONSTER Rx#:[id number] NS Inj 1,000 ML @ Wide Open IV. 1000 / 1000 SIG BOLUS ONE Rx#:[id number] Oral 100 / 100 Other: # Voids 3 Narrative: GENERAL: No acute distress. SKIN: Warm and dry. HEAD: Atraumatic. Normocephalic. EYES: Pupils equal and round. No scleral icterus. No injection or drainage. ENT: No nasal bleeding or discharge. Mucous membranes pink and moist. NECK: Trachea midline. CARDIOVASCULAR: Regular rate and rhythm. No murmurs auscultated. RESPIRATORY: No accessory muscle use. Fair air entry. Clear to auscultation. Breath sounds equal bilaterally. GASTROINTESTINAL: Abdomen soft, nondistended. non tender. MUSCULOSKELETAL: Extremities without clubbing, cyanosis, or edema. No obvious deformities. NEUROLOGICAL: Awake and alert. No obvious cranial nerve deficits. PSYCHIATRIC: Appropriate mood and affect; insight and judgment poor. Results - Labs CBC & Chem 7: 12/15/17 04:30 12/15/17 04:30 Laboratory Results - last 24 hr 12/14/17 12/14/17 12/14/17 15:41 15:41 15:41 WBC 14.1 H RBC 4.70 Hgb 15.9 Hct 46.6 MCV 99.1 MCH 33.8 MCHC 34.1 RDW 14.4 Plt Count 296 D MPV 8.3 Neut % (Auto) 80.4 H Lymph % (Auto) 12.7 [place] % (Auto) 5.9 Eos % (Auto) 0.4 Baso % (Auto) 0.6 Neut # (Auto) 11.3 H Lymph # (Auto) 1.8 [place] # (Auto) 0.8 Eos # (Auto) 0.1 Baso # (Auto) 0.1 WBC Differential . Differential Comment Auto diff final Sodium 136 Potassium 3.9 Chloride 102 Carbon Dioxide 21.4 Anion Gap 13 BUN 11 Creatinine 0.91 Estimated GFR POC Glucose Random Glucose 112 H Lactic Acid 1.1 Calcium 9.0 Total Bilirubin 0.6 AST 97 H ALT 77 Alkaline Phosphatase 119 H Total Protein 8.7 H Albumin 4.6 Lipase 2970 H Urine Color Urine Clarity Urine pH Ur Specific [place] Urine Protein Urine Glucose (UA) Urine Ketones Urine Occult Blood Urine Nitrate Urine Bilirubin Urine Urobilinogen Ur Leukocyte Esterase Urine RBC Urine WBC Hyaline Casts Urine Mucus Micro UA Comment Ur Microscopic Review Urine Culture Comments Serum Alcohol 12/14/17 12/14/17 12/14/17 17:22 19:50 19:50 WBC RBC Hgb Hct MCV MCH MCHC RDW Plt Count MPV Neut % (Auto) Lymph % (Auto) [place] % (Auto) Eos % (Auto) Baso % (Auto) Neut # (Auto) Lymph # (Auto) [place] # (Auto) Eos # (Auto) Baso # (Auto) WBC Differential Differential Comment Sodium Potassium Chloride Carbon Dioxide Anion Gap BUN Creatinine Estimated GFR POC Glucose Random Glucose Lactic Acid 0.9 Calcium Total Bilirubin AST ALT Alkaline Phosphatase Total Protein Albumin Lipase Urine Color Yellow Urine Clarity Clear Urine pH 5.0 Ur Specific [place] 1.010 Urine Protein Negative Urine Glucose (UA) Negative Urine Ketones Trace H Urine Occult Blood Negative Urine Nitrate Negative Urine Bilirubin Negative Urine Urobilinogen Less than 2 Ur Leukocyte Esterase Negative Urine RBC Less than 1 Urine WBC 1 Hyaline Casts 1 Urine Mucus Few H Micro UA Comment Culture not ind Ur Microscopic Review Not Reportable Urine Culture Comments Culture not ind Serum Alcohol Less than 3 12/14/17 12/15/17 12/15/17 19:52 04:30 04:30 WBC 7.9 RBC 4.21 L Hgb 14.0 Hct 41.3 MCV 98.1 MCH 33.2 MCHC 33.8 RDW 14.5 Plt Count 232 MPV 8.5 Neut % (Auto) 68.1 Lymph % (Auto) 21.7 [place] % (Auto) 7.5 Eos % (Auto) 1.6 Baso % (Auto) 1.1 Neut # (Auto) 5.4 Lymph # (Auto) 1.7 [place] # (Auto) 0.6 Eos # (Auto) 0.1 Baso # (Auto) 0.1 WBC Differential . Differential Comment Auto diff final Sodium 137 Potassium 3.5 Chloride 106 Carbon Dioxide 20.7 L Anion Gap 10 BUN 9 Creatinine 0.76 Estimated GFR Greater than 89 POC Glucose 107 Random Glucose 86 Lactic Acid Calcium 8.2 L D Total Bilirubin 0.7 AST 63 H ALT 54 Alkaline Phosphatase 97 Total Protein 6.9 D Albumin 3.7 D Lipase 1611 H Urine Color Urine Clarity Urine pH Ur Specific [place] Urine Protein Urine Glucose (UA) Urine Ketones Urine Occult Blood Urine Nitrate Urine Bilirubin Urine Urobilinogen Ur Leukocyte Esterase Urine RBC Urine WBC Hyaline Casts Urine Mucus Micro UA Comment Ur Microscopic Review Urine Culture Comments Serum Alcohol - Imaging Impressions Abdomen/Pelvis CT 12/15/17 00:00 CONCLUSION: 1. Pancreas changes indicative of chronic pancreatitis with 2 stable cystic lesions measuring up to 2.4 cm. These may represent pancreatic pseudocysts. There are new inflammatory changes in the peripancreatic fat and small bowel mesentery suggesting acute inflammation/pancreatitis. 2. Liver changes characteristic of cirrhosis. No focal liver lesion is identified. 3. Moderate to severe atherosclerotic disease. Assessment and Plan - Plan 62-year-old male with a past medical history significant for alcohol dependence , liver cirrhosis, hepatitis C, chronic back pain and recurrent alcoholic pancreatitis who presents to [facility] ED with complaints of severe abdominal pain. Acute on chronic alcoholic pancreatitis Patient admits to drinking a beer this morning Lipase 2970 today came down to 1611, Improved alkaline phosphatase to 97 from 119, -Continue IV fluids, replace electrolyte, started on Liquid diet and tolerated will go to Cardiac diet. -obtain CT abd/pelvis chronic pancreatitis. Leukocytosis reactive, UA negative, WBC improved from 14.1 to 7.9 lactic acid 1.1, was covered with Zosyn will discontinue this medicine. Hypertensive, no reported hx of HTN Suspect secondary to abdominal pain -Clonidine prn -monitor BP and will initiate scheduled antihypertensive management if indicated Diarrhea No diarrhea until now, stable, had loose stools yesterday not able to take C Diff test yet. COPD, not in acute exacerbation Ongoing tobaccoism -Discussed tobacco cessation -Duonebs as needed Hepatitis C/liver Cirrhosis -Patient needs to follow-up with GI as outpatient Alcohol abuse/dependence -Patient counseled on importance of complete alcohol cessation -CIUT protocol -give IM Thiamine x 1 now, will begin po thiamine and folic acid when able to tolerate po meds DVT PPX SCD/MAX rojas Code Status: full code. Discussed Condition With: Patient and Nurse Miss Johnson. Discharge Planning: Expected by tomorrow.
[2017-12-15] MEDS: Famotidine PF Inj 20 MG/2 ML Vial IV.PUSH SCH ×2 (09:22→20:28)
[2017-12-15] MEDS: Insulin NovoLOG Aspart Correctional Sugar Inj SQ SCH ×4 (09:29→20:32)
[2017-12-16] MEDS: Sod Chloride 0.9% Inj 1,000 ML IV.CONT SCH ×5 (00:41→17:22)
[2017-12-16] MEDS: Ketorolac Inj 30 MG/ML (IVP) Vial IV.PUSH PRN ×3 (04:34→22:07)
[2017-12-16 05:39] LABS: Alanine Aminotransferase 41 U/L (12-78); Albumin 3.1 g/dL (3.4-5.0); Alkaline Phosphatase 84 U/L (45-117); Anion Gap 10 meq/L (5-15); Aspartate Aminotransferase 48 U/L (15-37); Blood Urea Nitrogen 7 mg/dL (7-18); Calcium 7.5 mg/dL (8.5-10.1); Chloride 114 meq/L (98-107); Glomerular Filtration Rate Greater Than 89 mL/min (>89); Glucose,Random 82 mg/dL (74-106); Lipase 5953 U/L (73-393); Potassium 3.8 meq/L (3.5-5.1); Sodium 146 meq/L (136-145)
[2017-12-16] MEDS: Famotidine PF Inj 20 MG/2 ML Vial IV.PUSH SCH ×3 (07:34→20:35)
[2017-12-16] MEDS: Insulin NovoLOG Aspart Correctional Sugar Inj SQ SCH ×4 (07:38→20:34)
--- NOTE | 2017-12-16 11:21 | P.PN ---
Subjective Interval history: This is a pleasant 62 y/o male with alcohol dependence, Cirrhosis, hepatitis C, Chronic back pain, who came to ER with Abdominal pain, nausea but no vomit, loose stools, leukocytosis with white count of 14.1. CMP significant for elevated AST of 97 and alk phos of 119. Calcium level is normal at 9.0. Lipase level elevated at 2970. Patient is hypertensive with blood pressure of 197/93. He is afebrile. Patient has had multiple admissions for acute pancreatitis last one being November 24 of this year. has also COPD. 12/15: Stable seen in his bedroom, improving Laboratory esparza, also clinically, will continue with Cardiac diet and follow laboratory in am if improving will discharge Home. 12/16: Seen in his bedroom and discussed with nurse Cao Elizabeth The patient is tolerating diet he is improving clinically but his Lipase today is over 5000, asked for GI specialist for recommendations and follow . Physical Exam Vital signs: Vital Signs 12/15/17 12:00 12/15/17 16:00 12/15/17 20:00 Temperature 97.3 F L 97.7 F 97.6 F Pulse Rate 56 L 57 L 57 L Respiratory Rate 20 18 20 Blood Pressure 113/56 L 186/76 H 126/68 Pulse Oximetry 96 94 L 96 12/15/17 22:04 12/16/17 00:00 12/16/17 03:02 Temperature 98.1 F Pulse Rate 57 L Respiratory Rate 20 19 20 Blood Pressure 118/64 Pulse Oximetry 95 12/16/17 05:52 12/16/17 08:00 Temperature 98.0 F Pulse Rate 58 L Respiratory Rate 20 17 Blood Pressure 164/75 H Pulse Oximetry 96 Intake & Output 12/15/17 12/16/17 12/16/17 18:59 06:59 18:59 Intake Total 1999 2200 / 2200 1000 / 1000 Balance 1999 2200 / 2200 1000 / 1000 Weight 64.2 kg Intake: IV 1999 1000 / 1000 1000 / 1000 NS Inj 1,000 ML @ 125 mls/hr IV 1999 1000 / 1000 1000 / 1000 .CONT .Q8H [facility] Rx#:[id number] Oral 1200 / 1200 Other: # Voids 4 2 Date of Last Bowel Movement 12/14/17 12/15/17 12/15/17 Narrative: GENERAL: This is a well-nourished, well-developed patient, in no apparent distress. CARDIOVASCULAR: Regular rate and rhythm without murmurs, gallops, or rubs. RESPIRATORY: Clear to auscultation. Breath sounds equal bilaterally. No wheezes , rales, or rhonchi. GASTROINTESTINAL: Abdomen soft, non-tender, nondistended. Normal active bowel sounds MUSCULOSKELETAL: Extremities without clubbing, cyanosis, or edema. NEURO: Alert & Oriented x4 to person, place, time, situation. Moves all ext x4 Results - Labs CBC & Chem 7: 12/15/17 04:30 12/16/17 04:42 Laboratory Results - last 24 hr 12/15/17 12/15/17 12/16/17 16:41 20:32 04:42 Sodium 146 H Potassium 3.8 Chloride 114 H D Carbon Dioxide 22.0 Anion Gap 10 BUN 7 Creatinine 0.60 Estimated GFR Greater than 89 POC Glucose 97 140 H Random Glucose 82 Calcium 7.5 L Total Bilirubin 0.6 AST 48 H ALT 41 Alkaline Phosphatase 84 Total Protein 6.0 L D Albumin 3.1 L D Lipase 5953 H Assessment and Plan - Plan 62-year-old male with a past medical history significant for alcohol dependence , liver cirrhosis, hepatitis C, chronic back pain and recurrent alcoholic pancreatitis who presents to [facility] ED with complaints of severe abdominal pain. Acute on chronic alcoholic pancreatitis Patient admits to drinking a beer this morning Lipase 2970 today came down to 1611 today 5953, Improved alkaline phosphatase to 97 from 119, -Continue IV fluids, replace electrolyte, started on Liquid diet and tolerated will go to Cardiac diet. -obtain CT abd/pelvis chronic pancreatitis. Asked for GI specialist consult today for recommendations, the patient is clinically Leukocytosis reactive, UA negative, WBC improved from 14.1 to 7.9 lactic acid 1.1, was covered with Zosyn will discontinue this medicine. Hypertensive, no reported hx of HTN Suspect secondary to abdominal pain -Clonidine prn -monitor BP and will initiate scheduled antihypertensive management if indicated Diarrhea No diarrhea until now, stable, had loose stools the first day, not able to take C Diff test yet. COPD, not in acute exacerbation Ongoing tobaccoism -Discussed tobacco cessation -Duonebs as needed Hepatitis C/liver Cirrhosis -Patient needs to follow-up with GI as outpatient Alcohol abuse/dependence no signs of withdrawal. -Patient counseled on importance of complete alcohol cessation -[facility] protocol -give IM Thiamine x 1 now, will begin po thiamine and folic acid when able to tolerate po meds DVT PPX SCD/MAX rojas Code Status: Full Code. Discussed Condition With: Patient and Nurse Miss Johnson. Discharge Planning: after GI specialist consult.
--- NOTE | 2017-12-16 13:28 | P.CONGI ---
History of Present Illness Consult date: 12/16/17 Consult reason: Worsening pancreatitis Chief complaint: Acute alcohol pancreatitis, alcohol abuse History of Present Illness: Mr. Vincent is a 62-year-old male with a past medical history significant for cirrhosis of the liver, hep C, alcohol dependence, recurring alcoholic pancreatitis and chronic pain. This patient presented to [facility] emergency department on 12/14/2017 with report of severe abdominal pain. Patient describes the pain as a burning discomfort that radiates across both upper left and right quadrants of the abdomen with no radiation. This service has been consulted to evaluate patient's worsening pancreatitis. He denies any aggravating factors. Of note, patient states pain can be alleviated by drinking one beer and taking 2 tabs of hydrocodone 7.5 mg p.o. Patient states associated symptoms of nausea with minimal vomiting. Patient states he drinks beer daily and smokes 1 pack/day cigarettes. He denies any known family history for gastrointestinal disorders/diseases. Patient states he has had multiple frequent admissions for acute pancreatitis most recent being November 2017. States last EGD and colonoscopy was done 1-2 months ago. As per patient's recollection EGD showed gastritis, hiatal hernia and esophagitis. Colonoscopy revealed a polyp that was removed and found to be benign per patient. 2017 lipase level 1611, today 5953. Patient denying any worsening pain or nausea. 12/15/2017 CT of abdomen and pelvis revealed the following-->. Pancreas changes indicative of chronic pancreatitis with 2 stable cystic lesions measuring up to 2.4 cm. These may represent pancreatic pseudocysts. There are new inflammatory changes in the peripancreatic fat and small bowel mesentery suggesting acute inflammation/pancreatitis. Liver changes characteristic of cirrhosis. No focal liver lesion is identified. Moderate to severe atherosclerotic disease. <Margarita Joy - Last Filed: 12/16/17 13:09> Review of Systems All other systems reviewed negative except as stated in HPI <Margarita Joy - Last Filed: 12/16/17 13:09> PMFSH - History History Provided By: Patient - Medical History Medical History: Medical History (Last Updated 12/14/17 @ 18:22 by Emily Dunbar) COPD (chronic obstructive pulmonary disease) Colitis Hepatitis C History of cirrhosis of liver Pancreatitis - Surgical History Surgical History: Surgical History (Last Reviewed 12/14/17 @ 18:04 by Emily Dunbar) Hx of colonoscopy - Family History Family History: Family History (Last Updated 12/14/17 @ 18:23 by Emily Dunbar) Brother Colon cancer - Tobacco History Second Hand Smoke Exposure: Yes Tobacco Use In Past 30 Days: Yes Smoking Status: Heavy tobacco smoker Tobacco Type: Cigarettes - Alcohol History How Often Do You Have a Drink Containing Alcohol: 4 or more times a week - Substance Use History Substance History: Active Abuse - Travel History Recent Travel in the [place] Within the Last 8 Weeks: No Recent Travel Out of the Country Within the Last 8 Weeks: No - Immunization History Tetanus Immunization: <5 Years Tetanus Immunization Year if Known: 2015 <Margarita Joy - Last Filed: 12/16/17 13:09> - Medical History Medical History: Medical History (Last Updated 12/14/17 @ 18:22 by Emily Dunbar) COPD (chronic obstructive pulmonary disease) Colitis Hepatitis C History of cirrhosis of liver Pancreatitis - Surgical History Surgical History: Surgical History (Last Reviewed 12/14/17 @ 18:04 by Emily Dunbar) Hx of colonoscopy - Family History Family History: Family History (Last Updated 12/14/17 @ 18:23 by Emily Dunbar) Brother Colon cancer <Yi Sow - Last Filed: 12/16/17 15:11> Medications and Allergies Active Medications: Active Medications Al Hydroxide/Mg Hydroxide (Milk Of [place] Liq) 30 ml PO Q12H PRN PRN Reason: Mild Constipation Bisacodyl (Dulcolax Supp) 10 mg RECTAL DAILY PRN PRN Reason: SEVERE CONSITIPATION Famotidine (Pepcid Pf Inj) 20 mg IV.PUSH Q12HR [facility] Last Admin: 12/16/17 10:45 Dose: Not Given Flumazenil (Romazecon Inj) 0.2 mg IV.PUSH Q1M PRN PRN Reason: OVERSEDATION Haloperidol Lactate (Haldol Inj) 1 mg IV.PUSH Q15M PRN PRN Reason: for severe agitation Hydromorphone HCl (Dilaudid Pf Inj) 0.5 mg IV.PUSH Q6H PRN PRN Reason: BREAKTHROUGH PAIN Hydromorphone HCl (Dilaudid) 2 mg PO Q4H PRN PRN Reason: PAIN SCALE 6 TO 10 Last Admin: 12/16/17 07:33 Dose: 2 mg Sodium Chloride (Ns Inj) 1,000 mls @ 125 mls/hr IV.CONT .Q8H [facility] Last Admin: 12/16/17 10:46 Dose: Not Given Insulin Aspart (Novolog Insulin Correctional Sugar Inj) 0 unit SQ ACHS [facility]; Protocol Last Admin: 12/16/17 07:38 Dose: Not Given Ketorolac Tromethamine (Toradol Inj) 15 mg IV.PUSH Q6H PRN PRN Reason: PAIN SCALE 1 TO 10 Stop: 12/19/17 17:44 Last Admin: 12/16/17 04:34 Dose: 15 mg Lactulose (Lactulose Liq) 30 ml PO DAILY PRN PRN Reason: SEVERE CONSITIPATION Lorazepam (Ativan) 1 mg PO Q4H PRN PRN Reason: for CIWA 8-10 Lorazepam (Ativan) 2 mg PO Q2H PRN PRN Reason: for CIWA 11-14 Lorazepam (Ativan Inj) 2 mg IV.PUSH Q2H PRN PRN Reason: for CIWA 11-14 Lorazepam (Ativan Inj) 2 mg IV.PUSH Q1H PRN PRN Reason: for CIWA 15-20 Lorazepam (Ativan Inj) 2 mg IV.PUSH Q15M PRN PRN Reason: for CIWA > 20 Lorazepam (Ativan Inj) 1 mg IV.PUSH Q4H PRN PRN Reason: for CIWA 8-10 Nicotine (Habitrol 21 Mg Patch.24 Hr) 1 patch T-DERMAL DAILY [facility] Last Admin: 12/16/17 10:45 Dose: Not Given Ondansetron HCl (Zofran Inj) 4 mg IV.PUSH Q6H PRN PRN Reason: NAUSEA OR VOMITING Sennosides (Senokot) 17.2 mg PO Q12H PRN PRN Reason: Moderate Constipation Sodium Chloride (Ns Flush) 2 ml IV.FLUSH PRN PRN PRN Reason: FLUSH AFTER USING IV ACCESS <Margarita Joy - Last Filed: 12/16/17 13:09> Active Medications: Active Medications Al Hydroxide/Mg Hydroxide (Milk Of Magnesia Liq) 30 ml PO Q12H PRN PRN Reason: Mild Constipation Bisacodyl (Dulcolax Supp) 10 mg RECTAL DAILY PRN PRN Reason: SEVERE CONSITIPATION Famotidine (Pepcid Pf Inj) 20 mg IV.PUSH Q12HR [facility] Last Admin: 12/16/17 10:45 Dose: Not Given Flumazenil (Romazecon Inj) 0.2 mg IV.PUSH Q1M PRN PRN Reason: OVERSEDATION Haloperidol Lactate (Haldol Inj) 1 mg IV.PUSH Q15M PRN PRN Reason: for severe agitation Hydromorphone HCl (Dilaudid Pf Inj) 0.5 mg IV.PUSH Q6H PRN PRN Reason: BREAKTHROUGH PAIN Hydromorphone HCl (Dilaudid) 2 mg PO Q4H PRN PRN Reason: PAIN SCALE 6 TO 10 Last Admin: 12/16/17 07:33 Dose: 2 mg Sodium Chloride (Ns Inj) 1,000 mls @ 125 mls/hr IV.CONT .Q8H [facility] Last Admin: 12/16/17 10:46 Dose: Not Given Insulin Aspart (Novolog Insulin Correctional Sugar Inj) 0 unit SQ ACHS [facility]; Protocol Last Admin: 12/16/17 14:44 Dose: Not Given Ketorolac Tromethamine (Toradol Inj) 15 mg IV.PUSH Q6H PRN PRN Reason: PAIN SCALE 1 TO 10 Stop: 12/19/17 17:44 Last Admin: 12/16/17 04:34 Dose: 15 mg Lactulose (Lactulose Liq) 30 ml PO DAILY PRN PRN Reason: SEVERE CONSITIPATION Lorazepam (Ativan) 1 mg PO Q4H PRN PRN Reason: for CIWA 8-10 Lorazepam (Ativan) 2 mg PO Q2H PRN PRN Reason: for CIWA 11-14 Lorazepam (Ativan Inj) 2 mg IV.PUSH Q2H PRN PRN Reason: for CIWA 11-14 Lorazepam (Ativan Inj) 2 mg IV.PUSH Q1H PRN PRN Reason: for CIWA 15-20 Lorazepam (Ativan Inj) 2 mg IV.PUSH Q15M PRN PRN Reason: for CIWA > 20 Lorazepam (Ativan Inj) 1 mg IV.PUSH Q4H PRN PRN Reason: for CIWA 8-10 Nicotine (Habitrol 21 Mg Patch.24 Hr) 1 patch T-DERMAL DAILY [facility] Last Admin: 12/16/17 10:45 Dose: Not Given Ondansetron HCl (Zofran Inj) 4 mg IV.PUSH Q6H PRN PRN Reason: NAUSEA OR VOMITING Sennosides (Senokot) 17.2 mg PO Q12H PRN PRN Reason: Moderate Constipation Sodium Chloride (Ns Flush) 2 ml IV.FLUSH PRN PRN PRN Reason: FLUSH AFTER USING IV ACCESS <Yi Sow - Last Filed: 12/16/17 15:11> Allergies Allergy/AdvReac Type Severity Reaction Status Date / Time codeine AdvReac Mild SWEATS Verified 12/14/17 15:30 Home Medications Medication Instructions Recorded Confirmed Type hydrocodone-acetaminophen 1 tab PO Q4H PRN 09/03/17 12/14/17 History famotidine 20 mg PO BID 11/24/17 12/14/17 History [id number] [Creon] 3,000 units PO BID 11/24/17 12/14/17 History Exam Vital signs: Vital Signs 12/15/17 16:00 12/15/17 20:00 12/15/17 22:04 Temperature 97.7 F 97.6 F Pulse Rate 57 L 57 L Respiratory Rate 18 20 20 Blood Pressure 186/76 H 126/68 Pulse Oximetry 94 L 96 12/16/17 00:00 12/16/17 03:02 12/16/17 05:52 Temperature 98.1 F Pulse Rate 57 L Respiratory Rate 19 20 20 Blood Pressure 118/64 Pulse Oximetry 95 12/16/17 08:00 12/16/17 12:00 Temperature 98.0 F 98.2 F Pulse Rate 58 L 60 Respiratory Rate 17 18 Blood Pressure 164/75 H 152/74 H Pulse Oximetry 96 97 Intake & Output 12/15/17 12/16/17 12/16/17 18:59 06:59 18:59 Intake Total 1999 2200 / 2200 1000 / 1000 Balance 1999 2200 / 2200 1000 / 1000 Weight 64.2 kg Intake: IV 1999 1000 / 1000 1000 / 1000 NS Inj 1,000 ML @ 125 mls/hr IV 1999 1000 / 1000 1000 / 1000 .CONT .Q8H [facility] Rx#:[id number] Oral 1200 / 1200 Other: # Voids 4 2 Date of Last Bowel Movement 10/12/2212/15/17 12/15/17 - Constitutional no acute distress - Routine HEENT Exam Head: Present: normocephalic - Routine Neck Exam Present: supple - Routine Respiratory Exam Present: CTA bilaterally. Absent: accessory muscle use - Routine Abdominal Exam Present: soft, normoactive bowel sounds, tenderness, distended. Absent: guarding, firm Comments: History of cirrhosis with mild ascites noted on exam - Routine Extremities Exam Present: full ROM, pulses intact. Absent: edema - Routine Skin Exam Present: dry, warm - Routine Neurological Exam Present: alert, oriented X3 <Joy,Margarita - Last Filed: 12/16/17 13:09> Vital signs: Vital Signs 12/15/17 16:00 12/15/17 20:00 12/15/17 22:04 Temperature 97.7 F 97.6 F Pulse Rate 57 L 57 L Respiratory Rate 18 20 20 Blood Pressure 186/76 H 126/68 Pulse Oximetry 94 L 96 12/16/17 00:00 12/16/17 03:02 12/16/17 05:52 Temperature 98.1 F Pulse Rate 57 L Respiratory Rate 19 20 20 Blood Pressure 118/64 Pulse Oximetry 95 12/16/17 08:00 12/16/17 12:00 Temperature 98.0 F 98.2 F Pulse Rate 58 L 60 Respiratory Rate 17 18 Blood Pressure 164/75 H 152/74 H Pulse Oximetry 96 97 Intake & Output 12/15/17 12/16/17 12/16/17 18:59 06:59 18:59 Intake Total 1999 2200 / 2200 1000 / 1000 Balance 1999 2200 / 2200 1000 / 1000 Weight 64.2 kg Intake: IV 1999 / 1999 1000 / 1000 1000 / 1000 NS Inj 1,000 ML @ 125 mls/hr IV 2000 / 1999 1000 / 1000 1000 / 1000 .CONT .Q8H [facility] Rx#:[id number] Oral 1200 / 1200 Other: # Voids 4 2 Date of Last Bowel Movement 12/14/17 12/15/17 12/15/17 <Yi Sow - Last Filed: 12/16/17 15:11> Results - Labs CBC & Chem 7: 12/15/17 04:30 12/16/17 04:42 Labs: Laboratory Results - last 24 hr 12/15/17 12/15/1718 16:41 20:32 04:42 Sodium 146 H Potassium 3.8 Chloride 114 H D Carbon Dioxide 22.0 Anion Gap 10 BUN 7 Creatinine 0.60 Estimated GFR Greater than 89 POC Glucose 97 140 H Random Glucose 82 Calcium 7.5 L Total Bilirubin 0.6 AST 48 H ALT 41 Alkaline Phosphatase 84 Total Protein 6.0 L D Albumin 3.1 L D Lipase 5953 H <Margarita Joy - Last Filed: 12/16/17 13:09> - Labs CBC & Chem 7: 12/15/17 04:30 12/16/17 04:42 Labs: Laboratory Results - last 24 hr 12/15/17 12/15/17 12/16/17 16:41 20:32 04:42 Sodium 146 H Potassium 3.8 Chloride 114 H D Carbon Dioxide 22.0 Anion Gap 10 BUN 7 Creatinine 0.60 Estimated GFR Greater than 89 POC Glucose 97 140 H Random Glucose 82 Calcium 7.5 L Total Bilirubin 0.6 AST 48 H ALT 41 Alkaline Phosphatase 84 Total Protein 6.0 L D Albumin 3.1 L D Lipase 5953 H <Yi Sow - Last Filed: 12/16/17 15:11> Assessment and Plan (1) Acute pancreatitis Status: Resolved Code(s): K85.90 - Acute pancreatitis without necrosis or infection, unspecified (2) Pancreatic pseudocyst Status: Acute Code(s): K86.3 - Pseudocyst of pancreas - Plan Mr. Vincent is a 62-year-old male with a past medical history significant for cirrhosis of the liver, hep C, alcohol dependence, recurring alcoholic pancreatitis and chronic pain. This patient presented to [facility] emergency department on 12/14/2017 with report of severe abdominal pain. Patient describes the pain as a burning discomfort that radiates across both upper left and right quadrants of the abdomen with no radiation. This service has been consulted to evaluate patient's worsening pancreatitis. He denies any aggravating factors. Of note, patient states pain can be alleviated by drinking one beer and taking 2 tabs of hydrocodone 7.5 mg p.o. Patient states associated symptoms of nausea with minimal vomiting. Patient states he drinks beer daily and smokes 1 pack/day cigarettes. He denies any known family history for gastrointestinal disorders/diseases. Patient states he has had multiple frequent admissions for acute pancreatitis most recent being November 2017. States last EGD and colonoscopy was done 1-2 months ago. As per patient's recollection EGD showed gastritis, hiatal hernia and esophagitis. Colonoscopy revealed a polyp that was removed and found to be benign per patient. 2017 lipase level 1611, today 5953. Patient denying any worsening pain or nausea. 12/15/2017 CT of abdomen and pelvis revealed the following-->. Pancreas changes indicative of chronic pancreatitis with 2 stable cystic lesions measuring up to 2.4 cm. These may represent pancreatic pseudocysts. There are new inflammatory changes in the peripancreatic fat and small bowel mesentery suggesting acute inflammation/pancreatitis. Liver changes characteristic of cirrhosis. No focal liver lesion is identified. Moderate to severe atherosclerotic disease 12/16/2017 Worsening pancreatitis-12/15/2017 lipase level 1611, 12/16/2017 total bilirubin 0.6 AST 48 ALT 41 alk phos [address] of the abdomen and pelvis results as noted above showing chronic pancreatitis with 2 stable cystic lesions. Plan -N.p.o. for bowel rest -Monitor labs-recheck lipase level in the morning -Continue IV hydration -Antiemetics and analgesics as per attending -PPI -Bowel regimen -Discussed alcohol cessation -Supportive care -Further recommendations to follow based on findings and patient status This patient has been seen by myself and Dr. Sow and this note is written on his behalf - Attending Attestation Dr. Sow <Margarita Joy - Last Filed: 12/16/17 13:09> (1) Acute pancreatitis Status: Resolved Code(s): K85.90 - Acute pancreatitis without necrosis or infection, unspecified (2) Pancreatic pseudocyst Status: Acute Code(s): K86.3 - Pseudocyst of pancreas - Plan Seen and examined with [employer], etoh pancreatitis. Continues to drink. Advised against ETOH. Monitor labs. Liquid diet, <Yi Sow - Last Filed: 12/16/17 15:11>
[2017-12-17] MEDS: Sod Chloride 0.9% Inj 1,000 ML IV.CONT SCH (00:47)
[2017-12-17 06:24] LABS: Albumin 3.3 g/dL (3.4-5.0); Anion Gap 7 meq/L (5-15); Aspartate Aminotransferase 49 U/L (15-37); Blood Urea Nitrogen 8 mg/dL (7-18); Calcium 7.7 mg/dL (8.5-10.1); Chloride 112 meq/L (98-107); Glomerular Filtration Rate Greater Than 89 mL/min (>89); Glucose,Random 78 mg/dL (74-106); Potassium 3.7 meq/L (3.5-5.1); Sodium 142 meq/L (136-145)
[2017-12-17 06:25] LABS: Alanine Aminotransferase 40 U/L (12-78)
[2017-12-17 06:28] LABS: Alkaline Phosphatase 87 U/L (45-117); Lipase 3134 U/L (73-393); Total Protein 6.3 g/dL (6.4-8.2)
[2017-12-17] MEDS: Insulin NovoLOG Aspart Correctional Sugar Inj SQ SCH (08:51)
[2017-12-17] MEDS: Famotidine PF Inj 20 MG/2 ML Vial IV.PUSH SCH (09:31)
--- NOTE | 2017-12-17 10:40 | P.PN ---
Subjective Interval history: Follow up for acute on chronic pancreatitis. It is currently doing well. He is ambulating well. He denies any chest pain, shortness of breath, fever or chills. He continues to have some abdominal pain. However, he wants to eat. He also requests changing his pain medication back to his home medication Fraser. He also does not want to take Toradol. Patient has history of liver cirrhosis. Physical Exam Vital signs: Vital Signs 12/16/17 12:00 12/16/17 16:00 12/16/17 20:00 Temperature 98.2 F 97.7 F 97.8 F Pulse Rate 60 65 65 Respiratory Rate 18 19 20 Blood Pressure 152/74 H 160/77 H 168/85 H Pulse Oximetry 97 96 97 12/17/17 00:00 12/17/17 08:00 Temperature 98.0 F 98.0 F Pulse Rate 60 59 L Respiratory Rate 19 17 Blood Pressure 163/78 H 165/81 H Pulse Oximetry 93 L 92 L Intake & Output 12/16/17 12/17/17 12/17/17 18:59 06:59 18:59 Intake Total 2000 / 2000 1800 / 1800 1000 / 1000 Balance 2000 / 2000 1800 / 1800 1000 / 1000 Weight 64.3 kg Intake: IV 1000 / 1000 1000 / 1000 1000 / 1000 NS Inj 1,000 ML @ 125 mls/hr IV 1000 / 1000 1000 / 1000 1000 / 1000 .CONT .Q8H [facility] Rx#:[id number] Oral 1000 / 1000 800 / 800 Other: # Voids 5 3 Date of Last Bowel Movement 12/15/17 Narrative: GENERAL: Alert, oriented x3, NAD. SKIN: Warm and dry. HEAD: Normocephalic. EYES: No scleral icterus. No injection or drainage. NECK: Supple, trachea midline. No JVD or lymphadenopathy. CARDIOVASCULAR: Regular rate and rhythm without murmurs, gallops, or rubs. RESPIRATORY: Breath sounds equal bilaterally. No accessory muscle use. GASTROINTESTINAL: Abdomen soft, Mild tenderness to palpation, nondistended. MUSCULOSKELETAL: No cyanosis, or edema. BACK: Nontender without obvious deformity. No CVA tenderness. Results - Labs CBC & Chem 7: 12/15/17 04:30 12/17/17 04:01 Laboratory Results - last 24 hr 12/16/17 12/17/17 20:32 04:01 Sodium 142 Potassium 3.7 Chloride 112 H Carbon Dioxide 23.0 Anion Gap 7 BUN 8 Creatinine 0.74 Estimated GFR Greater than 89 POC Glucose 90 Random Glucose 78 Calcium 7.7 L Total Bilirubin 0.6 AST 49 H ALT 40 Alkaline Phosphatase 87 Total Protein 6.3 L Albumin 3.3 L Lipase 3134 H - Imaging Abdomen/Pelvis CT 12/15/17 00:00 CONCLUSION: 1. Pancreas changes indicative of chronic pancreatitis with 2 stable cystic lesions measuring up to 2.4 cm. These may represent pancreatic pseudocysts. There are new inflammatory changes in the peripancreatic fat and small bowel mesentery suggesting acute inflammation/pancreatitis. 2. Liver changes characteristic of cirrhosis. No focal liver lesion is identified. 3. Moderate to severe atherosclerotic disease. Assessment and Plan - Plan 62-year-old male with a past medical history significant for alcohol dependence , liver cirrhosis, hepatitis C, chronic back pain and recurrent alcoholic pancreatitis who presents to [facility] ED with complaints of severe abdominal pain. Acute on chronic alcoholic pancreatitis Alcoholic liver cirrhosis -Patient is heavily counseled on quitting alcohol. -Discussed with patient that chronic pancreatitis is a risk factor for pancreatic cancer. -Restart Creon. -We will start patient on full liquid diet. If he tolerates well, will advance diet this afternoon. -Discontinue Toradol. NSAIDs should not be used in patients with alcoholic liver disease. -Discontinue p.o. Dilaudid and start Fraser 7.5 mg which is patient's home medication. -Leukocytosis is improved. COPD -currently stable. GERD -Protonix. Tobacco abuse - continue nicotine patch. Full code. Ambulation. Discharge plan: If patient tolerates diet well, will discharge patient home today.
[2017-12-17] MEDS: Lipase/Protease/Amylase 24/76/120 DR Capsule PO SCH ×2 (12:34→17:35)
[2017-12-17] MEDS: HYDROmorphone PF Inj 2 MG/ML Vial IV.PUSH PRN (21:06)
--- NOTE | 2017-12-17 21:32 | P.PNGI ---
Subjective Interval history: Feeling better.Tolerating clear liquid.Still pain.Wants to be send to rehab after discharge-will need to discuss with geriatric case managerair battle manager Exam Vital signs: Vital Signs 12/17/17 00:00 12/17/17 08:00 12/17/17 12:00 Temperature 98.0 F 98.0 F 98.1 F Pulse Rate 60 59 L 64 Respiratory Rate 19 17 17 Blood Pressure 163/78 H 165/81 H 157/75 H Pulse Oximetry 93 L 92 L 95 12/17/17 16:00 12/17/17 20:00 Temperature 98.7 F 98.2 F Pulse Rate 58 L 52 L Respiratory Rate 17 18 Blood Pressure 147/72 H 151/72 H Pulse Oximetry 95 96 Intake & Output 12/17/17 12/17/17 12/18/17 06:59 18:59 06:59 Intake Total 1800 / 1800 2524 / 2524 Balance 1800 / 1800 2524 / 2524 Weight 64.3 kg Intake: IV 1000 / 1000 1000 / 1000 NS Inj 1,000 ML @ 125 mls/hr IV 1000 / 1000 1000 / 1000 .CONT .Q8H [facility] Rx#:[id number] Oral 800 / 800 1524 / 1524 Other: # Voids 3 10 Date of Last Bowel Movement 12/17/17 - Constitutional no acute distress - Routine HEENT Exam Head: Present: normocephalic Eye: Present: PERRL - Routine Neck Exam Present: supple - Routine Cardiovascular Exam Present: S1, S2 - Routine Abdominal Exam Present: soft - Routine Extremities Exam Present: full ROM, pulses intact - Routine Skin Exam Present: intact - Routine Neurological Exam Present: alert, oriented X3 - Routine Psychiatric Exam Present: normal affect Results - Labs CBC & Chem 7: 12/15/17 04:30 12/17/17 04:01 Laboratory Results - last 24 hr 12/17/17 04:01 Sodium 142 Potassium 3.7 Chloride 112 H Carbon Dioxide 23.0 Anion Gap 7 BUN 8 Creatinine 0.74 Estimated GFR Greater than 89 Random Glucose 78 Calcium 7.7 L Total Bilirubin 0.6 AST 49 H ALT 40 Alkaline Phosphatase 87 Total Protein 6.3 L Albumin 3.3 L Lipase 3134 H Assessment and Plan (1) Acute pancreatitis Status: Resolved Code(s): K85.90 - Acute pancreatitis without necrosis or infection, unspecified (2) Pancreatic pseudocyst Status: Acute Code(s): K86.3 - Pseudocyst of pancreas - Attending Attestation Acute on chronic pancreatitis secondary etoh Etoh dependency Abdominal pain secondary pancreatitis History of hepatitis c Pancreatic cyst -stable Recommendations Advance diet as tolerated Creon with meals and snack fu gi fo hep c management etoh cessation-Patient interested in going to rehab-case management eval may need eus op for pancreatic cyst
[2017-12-18] MEDS: HYDROmorphone PF Inj 2 MG/ML Vial IV.PUSH PRN (03:51)
[2017-12-18 08:05] VITALS: RESP 18
[2017-12-18 08:20] VITALS: BP 128/64; PULSE 57; TEMP 98.1; O2SAT 18
--- NOTE | 2017-12-18 08:49 | P.DS ---
Date of admission: 12/14/17 17:54 Primary care physician: Deandre Guido Attending physician on discharge: Ashley Taylor Anticipated date of discharge: 12/18/17 Brief History from admission: This is a 62-year-old male with a past medical history significant for alcohol dependence, liver cirrhosis, hepatitis C, chronic back pain and recurrent alcoholic pancreatitis who presents to [facility] ED with complaints of severe abdominal pain. Patient states that his pain began this morning soon after drinking a beer. He complains of severe sharp stabbing epigastric pain that radiates to his back. He reports nausea but denies any vomiting. He denies any fever or chills. He denies any chest pain. He reports shortness of breath secondary to severe epigastric pain. He complains of diarrhea with two loose stools earlier today and one last night. He denies any blood in the stool. He denies any hematuria or dysuria. Patient states he had one beer this morning. In the ED, CBC significant for leukocytosis with white count of 14.1. CMP significant for elevated AST of 97 and alk phos of 119. Calcium level is normal at 9.0. Lipase level elevated at 2970. Patient is hypertensive with blood pressure of 197/93. He is afebrile. Patient has had multiple admissions for acute pancreatitis last one being November 24 of this year. DS: Summary Hospital Course: 62-year-old male with a past medical history significant for alcohol dependence , liver cirrhosis, hepatitis C, chronic back pain and recurrent alcoholic pancreatitis who presents to [facility] ED with complaints of severe abdominal pain. Acute on chronic alcoholic pancreatitis Alcoholic liver cirrhosis -Patient is heavily counseled on quitting alcohol. -Discussed with patient that chronic pancreatitis is a risk factor for pancreatic cancer. -Restart Creon. -He tolerated diet well. -Discontinue Toradol. NSAIDs should not be used in patients with alcoholic liver disease. -Discontinue p.o. Dilaudid and start [place] 7.5 mg which is patient's home medication. -Leukocytosis is improved. COPD -currently stable. GERD -Protonix. Tobacco abuse - continue nicotine patch. Overall, patient was admitted for acute on chronic pancreatitis. Patient continued to do well with supportive care. Patient was ambulating well and tolerated diet well. He follows up with Dr. Gallegos (GI) in the outpatient setting. Patient will follow up with his GI doctor regarding pancreatic cyst. He may need endoscopic ultrasound study. Patient was advised repeatedly regarding his alcohol use. He is motivated to quit alcohol. We suggested to abstain from alcohol completely. Patient is subsequently discharged home. - Time Spent with Patient Total time spent providing and/or coordinating discharge services: Less than 30 minutes Exam Vital signs: Vital Signs 12/17/17 12:00 12/17/17 16:00 12/17/17 19:17 Temperature 98.1 F 98.7 F Pulse Rate 64 58 L Respiratory Rate 17 17 18 Blood Pressure 157/75 H 147/72 H Pulse Oximetry 95 95 12/17/17 20:00 12/17/17 21:36 12/17/17 23:16 Temperature 98.2 F Pulse Rate 52 L Respiratory Rate 18 17 18 Blood Pressure 151/72 H Pulse Oximetry 96 12/18/17 00:00 12/18/17 04:21 12/18/17 08:00 Temperature 98.0 F 98.1 F Pulse Rate 53 L 57 L Respiratory Rate 16 18 17 Blood Pressure 138/66 128/64 Pulse Oximetry 95 18 L 12/18/17 08:05 Temperature Pulse Rate Respiratory Rate 18 Blood Pressure Pulse Oximetry Intake & Output 12/17/17 12/18/17 12/18/17 18:59 06:59 18:59 Intake Total 2524 / 2524 760 / 760 Balance 2524 / 2524 760 / 760 Intake: IV 1000 / 1000 NS Inj 1,000 ML @ 125 mls/hr IV 1000 / 1000 .CONT .Q8H [facility] Rx#:[id number] Oral 1524 / 1524 760 / 760 Other: # Voids 10 4 Date of Last Bowel Movement 12/17/17 12/17/17 # Bowel Movements 0 Results Procedures completed during hospitalization: None. - Impressions ITS Impressions Abdomen/Pelvis CT 12/15/17 00:00 CONCLUSION: 1. Pancreas changes indicative of chronic pancreatitis with 2 stable cystic lesions measuring up to 2.4 cm. These may represent pancreatic pseudocysts. There are new inflammatory changes in the peripancreatic fat and small bowel mesentery suggesting acute inflammation/pancreatitis. 2. Liver changes characteristic of cirrhosis. No focal liver lesion is identified. 3. Moderate to severe atherosclerotic disease. Discharge Plan - Discharge Disposition Patient Disposition: 01 Discharge Home - Discharge Condition Condition: Stable - Discharge Order Discharge Orders: Discharge Order (Routine); Ordered 12/18/17 Ordered By: Ashley Taylor - Discharge Details Anticipated Discharge Date: 12/18/17 Discharge Comment: Patient sees Dr. Gallegos (GI) in the outpatient setting. - Physicians Team Attending Provider: Ashley Taylor Other Providers: Analy Beckford ; Yi Sow MD
[2017-12-18] MEDS: Lipase/Protease/Amylase 24/76/120 DR Capsule PO SCH (09:25)
== END 2017-12-18 09:37 | disposition home or self-care (01) ==
LOC: NEPC 12:23 → NEDA 17:54 → N07 18:24
PROVIDERS: ADMIT Hospitalist; ATTEND Hospitalist

== ENCOUNTER 2017-12-29 07:06 | Inpatient (IN) ==
[2017-12-29] MEDS ORDERED: Morphine Sulfate Inj 8 MG/ML Vial IV.PUSH ONE (07:27)
[2017-12-29] MEDS ORDERED: Sod Chloride 0.9% Inj 1,000 ML IV.SIG ONE (07:27)
--- NOTE | 2017-12-29 07:31 | ED ---
HPI General Chief Complaint: Abdominal Pain Stated Complaint: Poss pancreas complaint Time Seen by Provider: 12/29/17 07:23 Source: patient Mode of arrival: ambulatory Limitations: no limitations History of Present Illness HPI narrative: 62-year-old male arrives with abdominal pain epigastric in location and it feels like prior episodes of pancreatitis. The patient has a history of alcohol induced pancreatitis. He was discharged from this facility just over a week ago following admission for the same complaint. At that time CT scan showed chronic pancreatitis with some inflammatory changes. Lipase on admission was 2970. He received IV fluids and pain medication and was discharged. He reports yesterday he drank alcohol. He had gone about a week without any. Symptoms started this morning when he woke up around 5 AM. Pain is constant and severe. Is worse with palpation. There is a history of pancreatic pseudocyst as well as liver cirrhosis and hepatitis C. nausea is reported. No vomiting. No fever. Related Data Home Medications Medication Instructions Recorded Confirmed hydrocodone-acetaminophen 1 tab PO Q4H PRN 09/03/17 12/29/17 famotidine 20 mg PO BID 11/24/17 12/29/17 [id number] [Creon] 3,000 units PO BID 11/24/17 12/29/17 albuterol sulfate [Ventolin HFA] 2 puff INHALATION Q4-6H PRN 12/29/17 12/29/17 omeprazole 40 mg PO DAILY 12/29/17 12/29/17 Previous Rx's Medication Instructions Recorded thiamine HCl (vitamin B1) 100 mg PO DAILY #30 tab 09/05/17 folic acid 1 mg PO DAILY #30 tab 12/17/17 Allergies Allergy/AdvReac Type Severity Reaction Status Date / Time codeine AdvReac Mild SWEATS Verified 12/29/17 07:36 Review of Systems ROS: all other systems reviewed are negative Constitutional Denies fever(s) PMFSH Medical History Medical History Alcohol induced acute pancreatitis (Acute) Fatty liver (Acute) COPD (chronic obstructive pulmonary disease) (Acute) Colitis (Acute) Hepatitis C (Acute) History of cirrhosis of liver (Acute) Pancreatitis (Acute) Surgical History Surgical History Hx of colonoscopy (Acute) Family History Family History Brother Colon cancer Social History Social History (Reviewed 11/24/17 @ 04:32 by Nancy Hamlin Substance History: No History of Abuse Second Hand Smoke Exposure: No Smoking Status: Current every day smoker Tobacco Type: Cigarettes How Often Do You Have a Drink Containing Alcohol: 4 or more times a week Recent Travel in [facility] within the Last 8 Weeks: No Recent Out of Country Travel within the Last 8 Weeks: No Immunization History Tetanus Immunization Year if Known: 2016 Exam Narrative Exam Narrative: GENERAL: 62-year-old male mild to moderate distress secondary to pain, pleasant SKIN: Focused skin assessment warm/dry. HEAD: Atraumatic. Normocephalic. EYES: Pupils equal and round. No scleral icterus. No injection or drainage. ENT: No nasal bleeding or discharge. Mucous membranes pink and moist. NECK: Trachea midline. No JVD. CARDIOVASCULAR: Regular rate and rhythm. No murmur appreciated. RESPIRATORY: No accessory muscle use. Clear to auscultation. Breath sounds equal bilaterally. GASTROINTESTINAL: Soft. Diffuse tenderness with guarding. MUSCULOSKELETAL: No obvious deformities. No clubbing. No cyanosis. No edema. NEUROLOGICAL: Awake and alert. No obvious cranial nerve deficits. Motor grossly within normal limits. Normal speech. PSYCHIATRIC: Appropriate mood and affect; insight and judgment normal. Course Initial Documented Vital Signs Temperature 97.5 F L 12/29/17 07:13 Pulse Rate 59 L 12/29/17 07:13 Respiratory Rate 18 12/29/17 07:13 Blood Pressure 153/79 H 12/29/17 07:13 Pulse Oximetry 99 12/29/17 07:13 Last Documented Vital Signs Temperature 97.5 F L 12/29/17 07:13 Pulse Rate 55 L 12/29/17 07:47 Respiratory Rate 24 12/29/17 07:47 Blood Pressure 166/81 H 12/29/17 07:47 Pulse Oximetry 95 12/29/17 08:15 Medical Decision Making [facility] Narrative Medical decision making narrative: Patient arrives with pancreatitis with lipase of 8700. This is due to alcohol abuse again last night. Patient will be admitted for pancreatitis. Case discussed with Dr. Taylor. Medical Screen Exam Complete: Yes Emergency Medical Condition: Yes Differential Diagnosis Differential Diagnosis: Constipation, Gastritis, Acute Cholecystitis, Biliary Colic, Pancreatitis, [place], Hepatitis, Bowel Obstruction, Cystitis, Mesenteric Ischemia, AAA, Appendicitis, Renal Stone/Hydronephrosis, GERD, perforated viscous Medical Records Medical records reviewed: Yes I reviewed the patient's medical records. Lab Data Lab results reviewed: Yes I reviewed the patient's lab results. Lab results narrative: Lipase is 8700 Result diagrams: 12/29/17 07:47 12/29/17 07:47 Lab Results 12/29/17 12/29/17 Range/Units 07:47 07:47 WBC 9.2 (4.0-11.0) th/mm3 RBC 4.47 L (4.50-5.90) mil/mm3 Hgb 14.8 (13.0-17.0) gm/dL Hct 43.7 (39.0-51.0) % MCV 97.7 (80.0-100.0) fL MCH 33.1 (27.0-34.0) pg MCHC 33.9 (32.0-36.0) % RDW 14.3 (11.6-17.2) % Plt Count 288 (150-450) th/mm3 MPV 7.9 (7.0-11.0) fL Neut % (Auto) 68.0 (16.0-70.0) % Lymph % (Auto) 21.1 (9.0-44.0) % [place] % (Auto) 6.8 (0.0-8.0) % Eos % (Auto) 2.6 (0.0-4.0) % Baso % (Auto) 1.5 (0.0-2.0) % Neut # (Auto) 6.2 (1.8-7.7) th/mm3 Lymph # (Auto) 1.9 (1.0-4.8) th/mm3 [place] # (Auto) 0.6 (0.0-0.9) th/mm3 Eos # (Auto) 0.2 (0.0-0.4) th/mm3 Baso # (Auto) 0.1 (0.0-0.2) th/mm3 WBC Differential . Differential Comment Auto diff final Sodium 139 (136-145) meq/L Potassium 4.1 (3.5-5.1) meq/L Chloride 105 (98-107) meq/L Carbon Dioxide 26.7 (21.0-32.0) meq/L Anion Gap 7 (5-15) meq/L BUN 16 (7-18) mg/dL Creatinine 0.88 (0.60-1.30) mg/dL Estimated GFR 88 L (>89) mL/min Random Glucose 123 H (74-106) mg/dL Calcium 8.8 (8.5-10.1) mg/dL Magnesium 1.7 (1.5-2.5) mg/dL Total Bilirubin 0.6 (0.2-1.0) mg/dL AST 61 H (15-37) U/L ALT 51 (12-78) U/L Alkaline Phosphatase 110 (45-117) U/L Total Protein 8.5 H (6.4-8.2) g/dL Albumin 4.4 (3.4-5.0) g/dL Lipase 8736 H (73-393) U/L Discharge Plan Discharge Disposition Patient Disposition: 30 Still Patient Physicians Team ED Provider: Candido Mcgraw Primary Care Provider: UNKNOWN, Rxs /Orders / Referrals /Forms Prescriptions: No Action hydrocodone-acetaminophen 7.5-325 mg Tablet 1 tab PO Q4H PRN (Reason: Pain) RF: 0 thiamine HCl (vitamin B1) 100 mg Tablet 100 mg PO DAILY Qty: 30 RF: 0 folic acid 1 mg Tablet 1 mg PO DAILY Qty: 30 RF: 0 omeprazole 40 mg Capsule,Delayed Release(Dr/Ec) 40 mg PO DAILY RF: 0 albuterol sulfate [Ventolin HFA] 90 mcg/actuation Hfa Aerosol Inhaler 2 puff INHALATION Q4-6H PRN (Reason: Shortness Of Breath) RF: 0 famotidine 20 mg Tablet 20 mg PO BID RF: 0 [id number]-fbbxifxa-nvwzeos [Creon] 3,000-9,500- 15,000 unit Capsule,Delayed Release(Dr/Ec) 3,000 units PO BID RF: 0 Discharge Interventions Interventions: Vital Signs Last Done: 12/29/17 07:47 Status ED Status: With Doctor
[2017-12-29 08:01] LABS: Baso # (Auto) 0.1 th/mm3 (0.0-0.2); Baso % (Auto) 1.5 % (0.0-2.0); Eos # (Auto) 0.2 th/mm3 (0.0-0.4); Eos % (Auto) 2.6 % (0.0-4.0); Hematocrit 43.7 % (39.0-51.0); Hemoglobin 14.8 gm/dL (13.0-17.0); Lymph # (Auto) 1.9 th/mm3 (1.0-4.8); Lymph % (Auto) 21.1 % (9.0-44.0); Mean Corpuscular HGB Conc 33.9 % (32.0-36.0); Mean Corpuscular Hemoglobin 33.1 pg (27.0-34.0); Mean Corpuscular Volume 97.7 fL (80.0-100.0); Mean Platelet Volume 7.9 fL (7.0-11.0); Mono # (Auto) 0.6 th/mm3 (0.0-0.9); Mono % (Auto) 6.8 % (0.0-8.0); Neut # (Auto) 6.2 th/mm3 (1.8-7.7); Platelet Count 288 th/mm3 (150-450); Red Blood Count 4.47 mil/mm3 (4.50-5.90); Red Cell Distribution Width 14.3 % (11.6-17.2); White Blood Count 9.2 th/mm3 (4.0-11.0)
[2017-12-29 08:27] LABS: Alanine Aminotransferase 51 U/L (12-78); Alkaline Phosphatase 110 U/L (45-117); Lipase 8736 U/L (73-393); Total Protein 8.5 g/dL (6.4-8.2)
[2017-12-29 08:33] LABS: Albumin 4.4 g/dL (3.4-5.0); Anion Gap 7 meq/L (5-15); Aspartate Aminotransferase 61 U/L (15-37); Blood Urea Nitrogen 16 mg/dL (7-18); Calcium 8.8 mg/dL (8.5-10.1); Carbon Dioxide 26.7 meq/L (21.0-32.0); Chloride 105 meq/L (98-107); Glomerular Filtration Rate 88 mL/min (>89); Glucose,Random 123 mg/dL (74-106); Magnesium 1.7 mg/dL (1.5-2.5); Potassium 4.1 meq/L (3.5-5.1); Sodium 139 meq/L (136-145)
[2017-12-29] MEDS ORDERED: Bisacodyl 10 MG Supp RECTAL PRN (09:17)
[2017-12-29] MEDS ORDERED: Acetaminophen 325 MG Tablet PO PRN (09:18)
[2017-12-29] MEDS: Sod Chloride 0.9% Inj 1,000 ML IV.CONT SCH ×2 (11:32→22:13)
[2017-12-29] MEDS: HYDROmorphone PF Inj 1 MG/ML Ampul IV.PUSH PRN ×3 (11:33→22:11)
[2017-12-29] MEDS: Enoxaparin Inj 40 MG/0.4 ML Syringe SQ SCH (11:33)
--- NOTE | 2017-12-29 12:48 | P.HP ---
History of Present Illness Primary Care Physician: UNKNOWN Chief Complaint: Abdominal pain History of Present Illness: Mr. Vincent is a pleasant 62 year old male with a history of chronic pancreatitis , Hep C, alcoholism who presents to the ED due to epigastric abdominal pain that woke him up around 5AM on 12/29/2017. He was discharged from the hospital for acute on chronic pancreatitis only about a week ago. Unfortunately, patient started drinking again. He admits to drinking heavy. He denies any chest pain, shortness of breath, fever, chills. No changes in bowel or bladder habits. No hematemesis but patient did have some nausea. On admission, his lipase elevated to be around 8700. PMH: Colitis, recurrent pancreatitis, COPD PSH: No major surgeries Social Hx: Smokes cig, drinks beer. No IVDU or other illicit drugs. Pt is homeless, lives in his car. Family history: No family history of Alzheimer's, Parkinson's, Cancer. Review of Systems All other systems reviewed negative except as stated in HPI PMFSH - History History Provided By: Patient - Medical History Medical History: Medical History (Last Updated 12/29/17 @ 07:38 by Maria Teresa Leiva) Alcohol induced acute pancreatitis Fatty liver COPD (chronic obstructive pulmonary disease) Colitis Hepatitis C History of cirrhosis of liver Pancreatitis - Surgical History Surgical History: Surgical History (Last Reviewed 12/14/17 @ 18:04 by Emily Dunbar) Hx of colonoscopy - Family History Family History: Family History (Last Updated 12/14/17 @ 18:23 by Emily Dunbar) Brother Colon cancer - Tobacco History Second Hand Smoke Exposure: No Tobacco Use In Past 30 Days: Yes Smoking Status: Current every day smoker Tobacco Type: Cigarettes - Alcohol History How Often Do You Have a Drink Containing Alcohol: 4 or more times a week - Substance Use History Substance History: No History of Abuse - Substance Use Type Marijuana Status: Active Route Used: Inhalation Reason for Use: Calm Down, Feels Good Comment: Couple times per week. Pt. states he smokes it to relax. - Travel History Recent Travel in the [facility] Within the Last 8 Weeks: No Recent Travel Out of the Country Within the Last 8 Weeks: No - Immunization History Tetanus Immunization: <5 Years Tetanus Immunization Year if Known: 2015 Medications and Allergies Active Medications: Active Medications Acetaminophen (Tylenol) 650 mg PO Q4H PRN PRN Reason: Fever, headache, pain 1-4 Al Hydroxide/Mg Hydroxide (Milk Of Magnesia Liq) 30 ml PO Q12H PRN PRN Reason: Mild Constipation Bisacodyl (Dulcolax Supp) 10 mg RECTAL DAILY PRN PRN Reason: SEVERE CONSITIPATION Enoxaparin Sodium (Lovenox Inj) 40 mg SQ Q24H [facility] Last Admin: 12/29/17 11:33 Dose: Not Given Hydromorphone HCl (Dilaudid Pf Inj) 0.5 mg IV.PUSH Q4H PRN PRN Reason: BREAKTHROUGH PAIN Last Admin: 12/29/17 11:33 Dose: 0.5 mg Sodium Chloride (Ns Inj) 1,000 mls @ 100 mls/hr IV.CONT .Q10H [facility] Stop: 12/30/17 09:29 Last Admin: 12/29/17 11:32 Dose: 100 mls/hr Lactulose (Lactulose Liq) 30 ml PO DAILY PRN PRN Reason: SEVERE CONSITIPATION Ondansetron HCl (Zofran Inj) 4 mg IV.PUSH Q6H PRN PRN Reason: NAUSEA OR VOMITING Oxycodone/Acetaminophen (Percocet 7.5/325 Mg) 1 tab PO Q6H PRN PRN Reason: Pain 5-10 Sennosides (Senokot) 17.2 mg PO Q12H PRN PRN Reason: Moderate Constipation Sodium Chloride (Ns Flush) 2 ml IV.FLUSH PRN PRN PRN Reason: FLUSH AFTER USING IV ACCESS Allergies Allergy/AdvReac Type Severity Reaction Status Date / Time codeine AdvReac Mild SWEATS Verified 12/29/17 07:36 Home Medications Medication Instructions Recorded Confirmed Type hydrocodone-acetaminophen 1 tab PO Q4H PRN 09/03/17 12/29/17 History famotidine 20 mg PO BID 11/24/17 12/29/17 History [id number] [Creon] 3,000 units PO BID 11/24/17 12/29/17 History albuterol sulfate [Ventolin HFA] 2 puff INHALATION Q4-6H PRN 12/29/17 12/29/17 History omeprazole 40 mg PO DAILY 12/29/17 12/29/17 History Exam Vital signs: Vital Signs 12/29/17 07:13 12/29/17 07:47 12/29/17 08:15 Temperature 97.5 F L Pulse Rate 59 L 55 L Respiratory Rate 18 24 Blood Pressure 153/79 H 166/81 H Pulse Oximetry 99 97 95 12/29/17 11:39 Temperature 98.6 F Pulse Rate 75 Respiratory Rate 16 Blood Pressure 138/79 Pulse Oximetry 97 Intake & Output 12/28/17 12/29/17 12/29/17 18:59 06:59 18:59 Intake Total 1000 / 1000 Balance 1000 / 1000 Weight 54.431 kg Intake: IV 1000 / 1000 NS Inj 1,000 ML @ Wide Open IV. 1000 / 1000 SIG [facility] Rx#:[id number] Narrative: GENERAL: This is a well-nourished, well-developed patient, in no apparent distress. SKIN: No rashes, ecchymoses or lesions. Warm and dry. HEAD: Atraumatic. Normocephalic. No temporal or scalp tenderness. EYES: Pupils equal round and reactive. No injection or drainage. ENT: Nose without bleeding, purulent drainage or septal hematoma. Airway patent. NECK: Trachea midline. No lymphadenopathy. Supple, nontender, no meningeal signs. CARDIOVASCULAR: Regular rate and rhythm without murmurs, gallops, or rubs. No JVD. RESPIRATORY: Clear to auscultation. Breath sounds equal bilaterally. No wheezes , rales, or rhonchi. GASTROINTESTINAL: Abdomen soft, tenderness to palpation over epigastric and right side of the abdomen, nondistended. No guarding. MUSCULOSKELETAL: Extremities without clubbing, cyanosis, or edema. NEUROLOGICAL: Awake and alert. Cranial nerves II through XII intact. No focal neurological deficits. Normal speech. Results - Labs CBC & Chem 7: 12/29/17 07:47 12/29/17 07:47 Labs: Laboratory Results - last 24 hr 12/29/17 12/29/17 07:47 07:47 WBC 9.2 RBC 4.47 L Hgb 14.8 Hct 43.7 MCV 97.7 MCH 33.1 MCHC 33.9 RDW 14.3 Plt Count 288 MPV 7.9 Neut % (Auto) 68.0 Lymph % (Auto) 21.1 [place] % (Auto) 6.8 Eos % (Auto) 2.6 Baso % (Auto) 1.5 Neut # (Auto) 6.2 Lymph # (Auto) 1.9 [place] # (Auto) 0.6 Eos # (Auto) 0.2 Baso # (Auto) 0.1 WBC Differential . Differential Comment Auto diff final Sodium 139 Potassium 4.1 Chloride 105 Carbon Dioxide 26.7 Anion Gap 7 BUN 16 Creatinine 0.88 Estimated GFR 88 L Random Glucose 123 H Calcium 8.8 Magnesium 1.7 Total Bilirubin 0.6 AST 61 H ALT 51 Alkaline Phosphatase 110 Total Protein 8.5 H Albumin 4.4 Lipase 8736 H Caprini VTE Risk Assessment Caprini VTE Risk Assessment: Moderate/High Risk (score >= 2) Caprini Risk Assessment Model: Point Value = 1 Point Value = 2 Point Value = 3 Point Value = 5 Age 41-60 Minor surgery BMI > 25 kg/m2 Swollen legs Varicose veins or History of unexplained or recurrent spontaneous Oral contraceptives or hormone replacement Sepsis (< 1 month) Serious lung disease, including pneumonia (< 1 month) Abnormal pulmonary function Acute myocardial infarction Congestive heart failure (< 1 month) History of inflammatory bowel disease Medical patient at bed rest Age 61-74 Arthroscopic surgery Major open surgery (> 45 min) Laparoscopic surgery (> 45 min) Malignancy Confined to bed (> 72 hours) Immobilizing plaster cast Central venous access Age >= 75 History of VTE Family history of VTE Factor V Leiden Prothrombin [id number] Lupus anticoagulant Anticardiolipin antibodies Elevated serum homocysteine Heparin-induced thrombocytopenia Other congenital or acquired thrombophilia Stroke (< 1 month) Elective arthroplasty Hip, pelvis, or leg fracture Acute spinal cord injury (< 1 month) Prophylaxis Regimen: Total Risk Factor Score Risk Level Prophylaxis Regimen 0-1 Low Early ambulation 2 Moderate Order ONE of the following: *Sequential Compression Device (SCD) *Heparin 5000 units SQ BID 3-4 Higher Order ONE of the following medications: *Heparin 5000 units SQ TID *Enoxaparin/Lovenox 40 mg SQ daily (WT < 150 kg, CrCl > 30 mL/min) *Enoxaparin/Lovenox 30 mg SQ daily (WT < 150 kg, CrCl > 10-29 mL/min) *Enoxaparin/Lovenox 30 mg SQ BID (WT < 150 kg, CrCl > 30 mL/min) AND/OR *Sequential Compression Device (SCD) 5 or more Highest Order ONE of the following medications: *Heparin 5000 units SQ TID (Preferred with Epidurals) *Enoxaparin/Lovenox 40 mg SQ daily (WT < 150 kg, CrCl > 30 mL/min) *Enoxaparin/Lovenox 30 mg SQ daily (WT < 150 kg, CrCl > 10-29 mL/min) *Enoxaparin/Lovenox 30 mg SQ BID (WT < 150 kg, CrCl > 30 mL/min) AND *Sequential Compression Device (SCD) Assessment and Plan - Plan Mr. Vincent is a pleasant 62 year old male with a history of Hep C, recurrent pancreatitis, alcoholism who presents to the ED due to epigastric abdominal pain , nausea and vomiting. Patient was recently admitted for acute on chronic pancreatitis. Unfortunately, he started drinking again after discharge. Acute on Chronic pancreatitis - Start IV fluid 100cc/hour for one day - Creon with each meal - Pain management with Acetaminophen, Percocet and Dilaudid IV - Liquid diet. Will advance as tolerated. Tobacco abuse Alcohol abuse - Patient heavily counselled. - He appears to be genuinely motivated but needs social support/help. - Will ask recycling program manager to look into any rehab options. - CIWA protocol. Full code. Lovenox.
[2017-12-29] MEDS ORDERED: LORazepam 1 MG Tablet PO PRN (16:41)
[2017-12-29] MEDS ORDERED: Haloperidol Inj 5 MG/ML Ampul IV.PUSH PRN (16:41)
[2017-12-29] MEDS ORDERED: [UNRECOGNIZED DRUG - OTHER] PO SCH (21:00)
[2017-12-30] MEDS: HYDROmorphone PF Inj 1 MG/ML Ampul IV.PUSH PRN ×4 (03:34→22:23)
[2017-12-30] MEDS: Sod Chloride 0.9% Inj 1,000 ML IV.CONT SCH (09:00)
[2017-12-30] MEDS ORDERED: Folic Acid 1 MG Tablet PO SCH (09:00)
[2017-12-30] MEDS: Lipase/Protease/Amylase 12/38/60 DR Capsule PO SCH ×3 (09:04→18:23)
--- NOTE | 2017-12-30 10:08 | P.PN ---
Subjective Interval history: Follow up on patient with acute on chronic pancreatitis. Patient seen and examined. He has multiple complaints. He says it took too long to get his dinner tray yesterday. He says it is too difficult for him to get any rest with the telemetry on. He says he does not want the injections in his stomach. He says the garage laborer woke him up this morning. He says no one knows anything and he isn't being told anything. He complains of abdominal pain. He has some nausea. He denies any vomiting. Physical Exam Vital signs: Vital Signs 12/29/17 11:39 12/29/17 15:41 12/29/17 20:00 Temperature 98.6 F 97.7 F 98.2 F Pulse Rate 75 61 60 Respiratory Rate 16 16 12 Blood Pressure 138/79 169/81 H 173/82 H Pulse Oximetry 97 96 96 12/29/17 23:50 12/30/17 05:38 12/30/17 07:49 Temperature 98.3 F 98.7 F 98.1 F Pulse Rate 60 69 60 Respiratory Rate 14 14 20 Blood Pressure 159/94 H 142/81 H 145/78 H Pulse Oximetry 98 97 Intake & Output 12/29/17 12/30/17 12/30/17 18:59 06:59 18:59 Intake Total 2200 / 2200 1000 / 1000 1000 / 1000 Balance 2200 / 2200 1000 / 1000 1000 / 1000 Weight 56.4 kg Intake: IV 1000 / 1000 1000 / 1000 1000 / 1000 NS Inj 1,000 ML @ 100 mls/hr IV 1000 / 1000 1000 / 1000 .CONT .Q10H MONSTER Rx#:[id number] NS Inj 1,000 ML @ Wide Open IV. 1000 / 1000 SIG BOLUS ONE Rx#:[id number] Oral 1200 / 1200 Other: # Voids 2 2 Weight On Admission 56 kg Narrative: GENERAL: This is a well-nourished, well-developed patient, in no apparent distress. Awake and alert. SKIN: Warm and dry. No rash. HEAD: Atraumatic. Normocephalic. EYES: Pupils equal round and reactive. No injection or drainage. ENT: Nose without bleeding or purulent drainage. Airway patent. NECK: Trachea midline. CARDIOVASCULAR: Regular rate and rhythm without murmurs, gallops, or rubs. RESPIRATORY: Clear to auscultation. Breath sounds equal bilaterally. No wheezes , rales, or rhonchi. GASTROINTESTINAL: Abdomen soft, tenderness to palpation over epigastric and right side of the abdomen, nondistended. No guarding. MUSCULOSKELETAL: Extremities without clubbing, cyanosis, or edema. NEUROLOGICAL: Awake and alert. Cranial nerves II through XII intact. No focal neurological deficits. Normal speech. PSYCHIATRIC: Irritable mood. Judgement and insight poor. Results - Labs CBC & Chem 7: 12/29/17 07:47 12/30/17 10:11 Assessment and Plan - Plan Mr. Vincent is a pleasant 62 year old male with a history of Hep C, recurrent pancreatitis, alcoholism who presents to the ED due to epigastric abdominal pain , nausea and vomiting. Patient was recently admitted for acute on chronic pancreatitis. Unfortunately, he started drinking again after discharge. Acute on Chronic pancreatitis Lipase dropped from 8736 to 1062 - tolerating full liquid diet, advance diet to soft - Started on IV fluid 100cc/hour for one day, d/c IVF - Creon with each meal - Pain management with Acetaminophen, Percocet and Dilaudid IV Tobacco abuse Alcohol abuse - Patient heavily counselled. - He appears to be genuinely motivated but needs social support/help. - Will ask it disaster recovery manager to look into any rehab options. - [facility] protocol. - thiamine/folic acid daily - offered patient nicotine patch but he declined Hep C - standard precautions - patient needs to follow up with GI as outpatient - complete alcohol cessation Full code. Lovenox. Code Status: Full Discussed Condition With: patient, nursing staff Discharge Planning: Likely discharge tomorrow am if able to tolerate advanced diet
[2017-12-30 10:42] LABS: Anion Gap 6 meq/L (5-15); Blood Urea Nitrogen 7 mg/dL (7-18); Calcium 8.2 mg/dL (8.5-10.1); Carbon Dioxide 26.9 meq/L (21.0-32.0); Chloride 107 meq/L (98-107); Glomerular Filtration Rate Greater Than 89 mL/min (>89); Glucose,Random 103 mg/dL (74-106); Lipase 1062 U/L (73-393); Potassium 3.6 meq/L (3.5-5.1); Sodium 140 meq/L (136-145)
[2017-12-30] MEDS: Enoxaparin Inj 40 MG/0.4 ML Syringe SQ SCH (13:13)
[2017-12-31 04:53] VITALS: TEMP 98.5
--- NOTE | 2017-12-31 07:39 | P.PN ---
Subjective Interval history: PATIENT NOT SEEN PRIOR TO LEAVING AMA Physical Exam Vital signs: Vital Signs 12/30/17 07:49 12/30/17 11:33 12/30/17 16:12 Temperature 98.1 F 97.7 F 97.7 F Pulse Rate 60 61 63 Respiratory Rate 20 18 18 Blood Pressure 145/78 H 149/81 H 167/77 H Pulse Oximetry 97 95 96 12/30/17 19:30 12/30/17 20:00 12/30/17 23:07 Temperature 98.0 F 98.0 F Pulse Rate 63 62 Respiratory Rate 18 14 18 Blood Pressure 170/82 H 147/78 H Pulse Oximetry 95 96 12/31/17 04:00 Temperature 98.5 F Pulse Rate 63 Respiratory Rate 12 Blood Pressure 137/74 Pulse Oximetry 96 Intake & Output 12/30/17 12/31/17 12/31/17 18:59 06:59 18:59 Intake Total 2400 / 2400 1000 / 1000 Balance 2400 / 2400 1000 / 1000 Intake: IV 1000 / 1000 1000 / 1000 NS Inj 1,000 ML @ 100 mls/hr IV 1000 / 1000 1000 / 1000 .CONT .Q10H [facility] Rx#:[id number] Oral 1400 / 1400 Other: # Voids 3 3 Date of Last Bowel Movement 12/20/17 12/30/17 Results - Labs CBC & Chem 7: 12/29/17 07:47 12/30/17 10:11 Laboratory Results - last 24 hr 12/30/17 10:11 Sodium 140 Potassium 3.6 Chloride 107 Carbon Dioxide 26.9 Anion Gap 6 BUN 7 Creatinine 0.56 L Estimated GFR Greater than 89 Random Glucose 103 Calcium 8.2 L Lipase 1062 H Assessment and Plan - Plan Mr. Vincent is a pleasant 62 year old male with a history of Hep C, recurrent pancreatitis, alcoholism who presents to the ED due to epigastric abdominal pain , nausea and vomiting. Patient was recently admitted for acute on chronic pancreatitis. Unfortunately, he started drinking again after discharge. 12/31 PATIENT NOT SEEN. PLANNED FOR TENTATIVE DISCHARGE TODAY IF PATIENT ABLE TO TOLERATE ADVANCED DIET. PATIENT PULLED OUT HIS IV AND LEFT AMA PRIOR TO EATING BREAKFAST. Acute on Chronic pancreatitis Lipase dropped from 8736 to 1062 - tolerating full liquid diet, advance diet to soft - Started on IV fluid 100cc/hour for one day, d/c IVF - Creon with each meal - Pain management with Acetaminophen, Percocet and Dilaudid IV Tobacco abuse Alcohol abuse - Patient heavily counselled. - He appears to be genuinely motivated but needs social support/help. - Will ask substation manager to look into any rehab options. - [facility] protocol. - thiamine/folic acid daily - offered patient nicotine patch but he declined Hep C - standard precautions - patient needs to follow up with GI as outpatient - complete alcohol cessation Full code. Lovenox.
[2017-12-31 07:49] VITALS: BP 157/78; PULSE 62; RESP 14; O2SAT 94
== END 2017-12-31 09:01 | disposition left against medical advice (07) ==
LOC: NEPE 07:06 → NEDA 07:06 → NEPGCP 10:28
PROVIDERS: ADMIT Hospitalist; ATTEND Hospitalist

== ENCOUNTER 2018-02-16 22:48 | Inpatient (IN) ==
[2018-02-16] MEDS ORDERED: Ketorolac Inj 30 MG/ML (IVP) Vial IV.PUSH ONE (23:13)
--- NOTE | 2018-02-16 23:18 | ED ---
HPI General Chief complaint: Abdominal Pain Stated complaint: poss pancreatitis Time Seen by Provider: 02/16/18 23:06 Source: patient Mode of arrival: ambulatory Limitations: no limitations History of Present Illness HPI narrative: 63yo M with PMH of hep C, alcohol abuse, recurrent pancreatitis presents to the ED with c/o abdominal pain for about 1 week. Pain is burning, epigastric and right upper abdomen. +Diarrhea. Denies any fever, chest pain, sob, vomiting, dysuria, hematuria, focal weakness or numbness. Pt drinks daily and last drink was 4pm today. Related Data Home Medications Medication Instructions Recorded Confirmed hydrocodone-acetaminophen 1 tab PO Q4H PRN 09/03/17 02/16/18 famotidine 20 mg PO BID 11/24/17 02/16/18 [id number] [Creon] 3,000 units PO BID 11/24/17 02/16/18 albuterol sulfate [Ventolin HFA] 2 puff INHALATION Q4-6H PRN 12/29/17 02/16/18 omeprazole 40 mg PO DAILY 12/29/17 02/16/18 cyanocobalamin-cobamamide [B12] 100 mcg SUBLINGUAL 02/16/18 [id number] [Creon] 2,600 units/day PO 02/16/18 Previous Rx's Medication Instructions Recorded thiamine HCl (vitamin B1) 100 mg PO DAILY #30 tab 09/05/17 folic acid 1 mg PO DAILY #30 tab 12/17/17 Allergies Allergy/AdvReac Type Severity Reaction Status Date / Time codeine AdvReac Mild SWEATS Verified 02/16/18 23:02 Review of Systems ROS: all other systems reviewed are negative [facility] Family History Family History Brother Colon cancer Social History Social History Substance History: Active Abuse Second Hand Smoke Exposure: No Smoking Status: Current every day smoker Tobacco Type: Cigarettes How Often Do You Have a Drink Containing Alcohol: 4 or more times a week Recent Travel in [facility] within the Last 8 Weeks: No Recent Out of Country Travel within the Last 8 Weeks: No Immunization History Tetanus Immunization Year if Known: 2016 Exam Narrative Exam Narrative: GENERAL: 63yo M in mild distress. SKIN: Focused skin assessment warm/dry. HEAD: Atraumatic. Normocephalic. EYES: Pupils equal and round. No scleral icterus. No injection or drainage. ENT: No nasal bleeding or discharge. Mucous membranes pink and moist. NECK: Trachea midline. No JVD. CARDIOVASCULAR: Regular rate and rhythm. No murmur appreciated. RESPIRATORY: No accessory muscle use. End inspiratory wheezing bilaterally. Breath sounds equal bilaterally. GASTROINTESTINAL: Abdomen soft, +TTP epigastric and RUQ. No rebound tenderness or guarding. MUSCULOSKELETAL: No obvious deformities. No clubbing. No cyanosis. No edema. NEUROLOGICAL: Awake and alert. No obvious cranial nerve deficits. Motor grossly within normal limits. Normal speech. PSYCHIATRIC: Appropriate mood and affect; insight and judgment normal. Course Initial Documented Vital Signs Temperature 98.2 F 02/16/18 23:00 Pulse Rate 84 02/16/18 23:00 Respiratory Rate 16 02/16/18 23:00 Blood Pressure 158/74 H 02/16/18 23:00 Pulse Oximetry 97 02/16/18 23:00 Last Documented Vital Signs Temperature 98.2 F 02/16/18 23:00 Pulse Rate 69 02/16/18 23:02 Respiratory Rate 16 02/16/18 23:02 Blood Pressure 174/85 H 02/16/18 23:02 Pulse Oximetry 98 02/16/18 23:02 Medical Decision Making MDM Narrative Medical decision making narrative: 63yo M with history of alcohol abuse, recurrent pancreatitis, hep C here with worsening abdominal pain. Pain is mainly epigastric and right upper abdomen. Labs reviewed, no leukocytosis. H/ H normal. AST mildly elevated at 79, mildly elevated from baseline. [place] 3991. CT a/p showed chronic pancreatitis. Pseudocysts. Pancreatic duct dilatation. Pt still in a lot of pain after toradol so morphine given. Given zofran and NS IVF. Will admit for acute on chronic pancreatitis. Will hydrate and control pain. Discussed with Dr. Ponce and accepted to his service. Medical Screen Exam Complete: Yes Emergency Medical Condition: Yes Differential Diagnosis Differential Diagnosis: Acute on chronic pancreatitis vs. hepatitis vs. gastritis vs. peptic ulcer disease Lab Data Result diagrams: 02/16/18 23:21 02/16/18 23:21 Lab Results 02/16/18 02/16/18 Range/Units 23:21 23:21 WBC 7.4 (4.0-11.0) th/mm3 RBC 4.22 L (4.50-5.90) mil/mm3 Hgb 14.1 (13.0-17.0) gm/dL Hct 40.9 (39.0-51.0) % MCV 97.0 (80.0-100.0) fL MCH 33.4 (27.0-34.0) pg MCHC 34.5 (32.0-36.0) % RDW 14.2 (11.6-17.2) % Plt Count 322 (150-450) th/mm3 MPV 7.6 (7.0-11.0) fL Neut % (Auto) 48.0 (16.0-70.0) % Lymph % (Auto) 36.6 (9.0-44.0) % [place] % (Auto) 11.1 H (0.0-8.0) % Eos % (Auto) 3.1 (0.0-4.0) % Baso % (Auto) 1.2 (0.0-2.0) % Neut # (Auto) 3.6 (1.8-7.7) th/mm3 Lymph # (Auto) 2.7 (1.0-4.8) th/mm3 [place] # (Auto) 0.8 (0.0-0.9) th/mm3 Eos # (Auto) 0.2 (0.0-0.4) th/mm3 Baso # (Auto) 0.1 (0.0-0.2) th/mm3 WBC Differential . Differential Comment Auto diff final Sodium 136 (136-145) meq/L Potassium 5.1 (3.5-5.1) meq/L Chloride 103 (98-107) meq/L Carbon Dioxide 25.2 (21.0-32.0) meq/L Anion Gap 8 (5-15) meq/L BUN 13 (7-18) mg/dL Creatinine 0.90 (0.60-1.30) mg/dL Estimated GFR 86 L (>89) mL/min Random Glucose 103 (74-106) mg/dL Calcium 9.4 (8.5-10.1) mg/dL Magnesium 2.0 (1.5-2.5) mg/dL Total Bilirubin 0.6 (0.2-1.0) mg/dL AST 79 H (15-37) U/L ALT 49 (12-78) U/L Alkaline Phosphatase 121 H (45-117) U/L Total Protein 8.4 H (6.4-8.2) g/dL Albumin 4.0 (3.4-5.0) g/dL Lipase 3991 H (73-393) U/L Imaging Data Radiologist's impression: Abdomen/Pelvis CT 02/17/18 00:00 CONCLUSION: 1. Cirrhotic liver. 2. Changes of chronic pancreatitis. The acute changes. 2 largely resolved. Dictated the 2 cysts of the pancreas presumably related to pseudocysts. There is pancreatic duct dilatation. The ductal dilatation appears worse. ECG Data EKG Prior to Arrival: No Attestation: I personally reviewed and interpreted this ECG as follows: Interpretation: NSR 61bpm. Normal axis. SC interval 198ms. No ST segment elevation or depression. Discharge Plan Discharge Disposition Patient Disposition: ED Admit(ED Internal Use Only) Discharge Order Discharge Orders: ED Use Only Admit Order (Routine); Ordered 02/17/18 Ordered By: Amita Priest Discharge Details Diagnosis: Acute on chronic pancreatitis Physicians Team ED Provider: Amita Priest Primary Care Provider: Primary Care Stefani Gibbs Rxs /Orders / Referrals /Forms Prescriptions: No Action hydrocodone-acetaminophen 7.5-325 mg Tablet 1 tab PO Q4H PRN (Reason: Pain) RF: 0 thiamine HCl (vitamin B1) 100 mg Tablet 100 mg PO DAILY Qty: 30 RF: 0 folic acid 1 mg Tablet 1 mg PO DAILY Qty: 30 RF: 0 omeprazole 40 mg Capsule,Delayed Release(Dr/Ec) 40 mg PO DAILY RF: 0 albuterol sulfate [Ventolin HFA] 90 mcg/actuation Hfa Aerosol Inhaler 2 puff INHALATION Q4-6H PRN (Reason: Shortness Of Breath) RF: 0 famotidine 20 mg Tablet 20 mg PO BID RF: 0 psntvm-gewhrxsd-gdfdlyc [Creon] 3,000-9,500- 15,000 unit Capsule,Delayed Release(Dr/Ec) 3,000 units PO BID RF: 0 cyanocobalamin-cobamamide [B12] 5,000-100 mcg Lozenge 100 mcg Sublingual RF: 0 wsfeyc-stdrzixu-axcpwas [Creon] 3,000-9,500- 15,000 unit Capsule,Delayed Release(Dr/Ec) 2,600 units/day PO RF: 0 Status ED Status: Admitted Patient
[2018-02-16 23:38] LABS: Baso # (Auto) 0.1 th/mm3 (0.0-0.2); Baso % (Auto) 1.2 % (0.0-2.0); Eos # (Auto) 0.2 th/mm3 (0.0-0.4); Eos % (Auto) 3.1 % (0.0-4.0); Hematocrit 40.9 % (39.0-51.0); Hemoglobin 14.1 gm/dL (13.0-17.0); Lymph # (Auto) 2.7 th/mm3 (1.0-4.8); Lymph % (Auto) 36.6 % (9.0-44.0); Mean Corpuscular HGB Conc 34.5 % (32.0-36.0); Mean Corpuscular Hemoglobin 33.4 pg (27.0-34.0); Mean Platelet Volume 7.6 fL (7.0-11.0); Mono # (Auto) 0.8 th/mm3 (0.0-0.9); Mono % (Auto) 11.1 % (0.0-8.0); Neut # (Auto) 3.6 th/mm3 (1.8-7.7); Platelet Count 322 th/mm3 (150-450); Red Blood Count 4.22 mil/mm3 (4.50-5.90); Red Cell Distribution Width 14.2 % (11.6-17.2); White Blood Count 7.4 th/mm3 (4.0-11.0)
[2018-02-16 23:56] LABS: Alanine Aminotransferase 49 U/L (12-78)
[2018-02-16 23:58] LABS: Alkaline Phosphatase 121 U/L (45-117); Lipase 3991 U/L (73-393); Total Protein 8.4 g/dL (6.4-8.2)
[2018-02-17] LABS: Anion Gap 8 meq/L (5-15); Aspartate Aminotransferase 79 U/L (15-37); Blood Urea Nitrogen 13 mg/dL (7-18); Calcium 9.4 mg/dL (8.5-10.1); Carbon Dioxide 25.2 meq/L (21.0-32.0); Chloride 103 meq/L (98-107); Glomerular Filtration Rate 86 mL/min (>89); Glucose,Random 103 mg/dL (74-106); Sodium 136 meq/L (136-145)
[2018-02-17 00:01] LABS: Potassium 5.1 meq/L (3.5-5.1)
--- NOTE | 2018-02-17 00:29 | CT ---
EXAM DATE: 02/17/2018 12:20 AM EST AGE/SEX: 63 years / Male INDICATIONS: Epigastric abdominal pain for one week. CLINICAL DATA: This is the patient's initial encounter. Patient reports that signs and symptoms have been present for 1 week and indicates a pain score of 10/10. MEDICAL/SURGICAL HISTORY: Pancreatitis. Hepatitis C. Colitis. ETOH abuse. None. ORAL CONTRAST: No oral contrast ingested. RADIATION DOSE: 6.64 CTDI (mGy) COMPARISON: [facility], CT ABDOMEN & PELVIS W CONTRAST, 12/15/2017. . TECHNIQUE: Multiple contiguous axial images were obtained through the abdomen and pelvis following b olus infusion of 75 ml Omnipaque 350 (iohexol) nonionic water-soluble contrast as a single exam dos e. No oral contrast ingested. Using automated exposure control and adjustment of the mA and/or kV ac cording to patient size, radiation dose was kept as low as reasonably achievable to obtain optimal di agnostic quality images. DICOM format image data is available electronically for review and comparis on. FINDINGS: Lower Lungs: The visualized lower lungs are clear. Liver: The liver has a homogeneous density without space-occupying lesion. There does appear to be no dularity to the anterior liver margin. There is no dilation of the biliary tree. The gallbladder is u nremarkable. Spleen: Homogeneous density without enlargement. Pancreas: There is calcification seen throughout the pancreas. The pancreatic duct is dilated measur ing up to 9 mm in diameter. There is persistent cystic areas seen at the pancreatic head measuring 2. 7 cm and at the pancreatic body measuring 2.5 cm. The pancreatic head cystic area appears larger. The pancreatic body cyst appears similar. On the prior exam, there was inflammatory change surrounding t he pancreas. This appears to have resolved. Significant induration in the surrounding mesentery is no longer present. Kidneys: Normal in size and shape. No evidence of hydronephrosis. There is a 2 cm cyst at the anteri or inferior left kidney. Adrenal Glands: Unremarkable. Aorta: The aorta and proximal iliac vessels are grossly unremarkable without aneurysmal dilation. A therosclerotic calcifications are seen throughout the arterial system. Bowel/Mesentery: The bowel loops are grossly unremarkable. The cecum and sigmoid colon have a normal configuration. Abdominal Wall: Intact. Retroperitoneum: No evidence of adenopathy in the retrocrural, para-aortic, or deep pelvic regions. Bladder: Contours are smooth. Reproductive Organs: No abnormal masses seen. Calcifications are seen in the prostate. Inguinal: There is fat extending into the inguinal canals bilaterally being more prominent on the le ft. No bowel seen in these regions. Bony Structures: Unremarkable. CONCLUSION: 1. Cirrhotic liver. 2. Changes of chronic pancreatitis. The acute changes. 2 largely resolved. Dictated the 2 cysts of t he pancreas presumably related to pseudocysts. There is pancreatic duct dilatation. The ductal dilata tion appears worse. Electronically signed by: Juan Manuel Chung MD Board Certified Radiologist 02/17/2018 12:28 AM EST
[2018-02-17] MEDS ORDERED: Morphine Inj 4 MG/ML Vial IV.PUSH ONE (00:37)
[2018-02-17] MEDS ORDERED: Sod Chloride 0.9% Inj 1,000 ML IV.SIG SCH (00:45)
[2018-02-17] MEDS ORDERED: LORazepam 1 MG Tablet PO PRN (00:53)
[2018-02-17] MEDS ORDERED: Haloperidol Inj 5 MG/ML Ampul IV.PUSH PRN (00:53)
[2018-02-17] MEDS ORDERED: Acetaminophen 325 MG Tablet PO PRN ×2 (00:55→14:31)
[2018-02-17] MEDS ORDERED: Bisacodyl 10 MG Supp RECTAL PRN (00:55)
[2018-02-17] MEDS: Sod Chloride 0.9% Inj 1,000 ML IV.CONT SCH ×6 (02:13→21:23)
[2018-02-17] MEDS ORDERED: Ketorolac Inj 30 MG/ML (IVP) Vial IV.PUSH PRN (03:12)
[2018-02-17] MEDS ORDERED: Morphine Inj 4 MG/ML Vial IV.PUSH PRN ×2 (06:18)
[2018-02-17] MEDS ORDERED: Naloxone Inj 0.4 MG/ML Vial IV.PUSH PRN (06:18)
--- NOTE | 2018-02-17 06:30 | P.HPIM ---
History of Present Illness Primary Care Physician: No Primary Care Physician History of Present Illness: 63-year-old male with a history of recurrent alcoholic pancreatitis, hepatitis C , chronic cirrhosis who presents with a one-week history of intense burning epigastric pain with intermittent radiation to back. Patient reports nausea with extremely poor appetite over the past week however no vomiting. Patient says he drinks every day, about 7 or 8 drinks. Most recent drink was around 4 PM on 02/16. Patient denies any history of withdrawal or seizures. Positive diarrhea denies any fevers, chills. Inpatient Certification: I certify that the inpatient services were ordered in accordance with Medicare regulations governing the order. This includes certification that hospital inpatient services are reasonable and necessary and in the case of services not specified as inpatient-only under 42 CFR 419.22(n), that they are appropriately provided as inpatient services in accordance to with the 2-midnight benchmark under 43 CFR 412.3(e) Estimated Total Length of Stay (Days): 2 Plans for Post Hospital Care: Not yet determined Review of Systems All other systems reviewed negative except as stated in HPI [facility] - History History Provided By: Patient - Medical History Medical History: Medical History (Last Reviewed 02/17/18 @ 06:22 by Angel Ponce MD) Alcohol induced acute pancreatitis COPD (chronic obstructive pulmonary disease) Colitis Fatty liver Hepatitis C History of cirrhosis of liver Pancreatitis - Surgical History Surgical History: Surgical History (Last Reviewed 02/17/18 @ 06:22 by Angel Ponce MD) Hx of colonoscopy - Family History Family History: Family History (Last Updated 02/17/18 @ 06:22 by Angel Ponce MD) Brother Colon cancer Father Family estrangement Mother Family estrangement - Tobacco History Second Hand Smoke Exposure: Yes Tobacco Use In Past 30 Days: Yes Smoking Status: Current every day smoker Tobacco Type: Cigarettes - Alcohol History How Often Do You Have a Drink Containing Alcohol: 4 or more times a week - Substance Use History Substance History: Active Abuse - Substance Use Type Marijuana Status: Active Route Used: Inhalation Last Used: weekly Reason for Use: Feels Good - Travel History Recent Travel in the [place] Within the Last 8 Weeks: No Recent Travel Out of the Country Within the Last 8 Weeks: No - Immunization History Tetanus Immunization: <5 Years Tetanus Immunization Year if Known: 2015 Hx Influenza Vaccine This Season: No Medications and Allergies Active Medications: Active Medications Acetaminophen (Tylenol) 650 mg PO Q4H PRN PRN Reason: Temp > 100.4 Al Hydroxide/Mg Hydroxide (Milk Of Magnesia Liq) 30 ml PO Q12H PRN PRN Reason: Mild Constipation Albuterol (Ventolin Hfa Inh) 2 puff INH Q4H PRN PRN Reason: Shortness Of Breath Lipase/Protease/Amylase (Michael Klein 24/76/120) 1 cap PO BID [facility] Bisacodyl (Dulcolax Supp) 10 mg RECTAL DAILY PRN PRN Reason: SEVERE CONSITIPATION Flumazenil (Romazecon Inj) 0.2 mg IV.PUSH Q1M PRN PRN Reason: OVERSEDATION Haloperidol Lactate (Haldol Inj) 1 mg IV.PUSH Q15M PRN PRN Reason: for severe agitation Sodium Chloride (Ns Inj) 1,000 mls @ 200 mls/hr IV.CONT .Q5H [facility] Last Admin: 02/17/18 04:21 Dose: 200 mls/hr Ketorolac Tromethamine (Toradol Inj) 30 mg IV.PUSH Q6H PRN PRN Reason: pain Last Admin: 02/17/18 03:36 Dose: 30 mg Lactulose (Lactulose Liq) 30 ml PO DAILY PRN PRN Reason: SEVERE CONSITIPATION Lorazepam (Ativan) 1 mg PO Q4H PRN PRN Reason: for CIWA 8-10 Lorazepam (Ativan) 2 mg PO Q2H PRN PRN Reason: for CIWA 11-14 Lorazepam (Ativan Inj) 2 mg IV.PUSH Q2H PRN PRN Reason: for CIWA 11-14 Lorazepam (Ativan Inj) 2 mg IV.PUSH Q1H PRN PRN Reason: for CIWA 15-20 Lorazepam (Ativan Inj) 2 mg IV.PUSH Q15M PRN PRN Reason: for CIWA > 20 Lorazepam (Ativan Inj) 1 mg IV.PUSH Q4H PRN PRN Reason: for CIWA 8-10 Last Admin: 02/17/18 04:47 Dose: 1 mg Ondansetron HCl (Zofran Inj) 4 mg IV.PUSH Q6H PRN PRN Reason: NAUSEA OR VOMITING Pantoprazole Sodium (Protonix) 40 mg PO DAILY [facility] Sennosides (Senokot) 17.2 mg PO Q12H PRN PRN Reason: Moderate Constipation Sodium Chloride (Ns Flush) 2 ml IV.FLUSH BID [facility] Sodium Chloride (Ns Flush) 2 ml IV.FLUSH PRN PRN PRN Reason: FLUSH AFTER USING IV ACCESS Thiamine HCl (Vitamin B1) 100 mg PO DAILY [facility] Allergies Allergy/AdvReac Type Severity Reaction Status Date / Time codeine AdvReac Mild SWEATS Verified 02/16/18 23:02 Home Medications Medication Instructions Recorded Confirmed Type hydrocodone-acetaminophen 1 tab PO Q4H PRN 09/03/17 02/16/18 History famotidine 20 mg PO BID 11/24/17 02/16/18 History giqqmn-uzjvojkn-knxipjt [Creon] 3,000 units PO BID 11/24/17 02/16/18 History albuterol sulfate [Ventolin HFA] 2 puff INHALATION Q4-6H PRN 12/29/17 02/16/18 History omeprazole 40 mg PO DAILY 12/29/17 02/16/18 History cyanocobalamin-cobamamide [B12] 100 mcg SUBLINGUAL 02/16/18 History jpeyno-khyhehaz-dbqzgaw [Creon] 2,600 units/day PO 02/16/18 History Exam Vital signs: Vital Signs 02/16/18 23:00 02/16/18 23:02 02/17/18 02:02 Temperature 98.2 F Pulse Rate 84 69 65 Respiratory Rate 16 16 16 Blood Pressure 158/74 H 174/85 H 110/70 Pulse Oximetry 97 98 97 02/17/18 04:00 Temperature 97.6 F Pulse Rate 65 Respiratory Rate 20 Blood Pressure 150/74 H Pulse Oximetry 97 Intake & Output 02/16/18 02/16/18 02/17/18 06:59 18:59 06:59 Intake Total 1999 Balance 1999 Weight 57.2 kg Intake: IV 1000 / 1000 NS Inj 1,000 ML @ 200 mls/hr IV 0 / 0 .CONT .Q5H [facility] Rx#:[id number] NS Inj 1,000 ML @ 1000 mls/hr 1000 / 1000 IV.SIG BOLUS [facility] Rx#:[id number] Other 1000 / 1000 Other: Other Intake Source Saline Solution Weight On Admission 57.2 kg Narrative: GENERAL: Patient lying in bed. Appears comfortable. Alert and oriented x3. SKIN: Warm and dry. HEAD: Atraumatic. Normocephalic. EYES: Pupils equal and round. No scleral icterus. No injection or drainage. ENT: No nasal bleeding or discharge. Mucous membranes pink and moist. NECK: Trachea midline. No JVD. CARDIOVASCULAR: Regular rate and rhythm. RESPIRATORY: No accessory muscle use. Clear to auscultation. Breath sounds equal bilaterally. GASTROINTESTINAL: Abdomen soft, nondistended. Tender to light palpation in the epigastrium. No rebound or guarding. MUSCULOSKELETAL: Extremities without clubbing, cyanosis, or edema. No obvious deformities. NEUROLOGICAL: Awake and alert. No obvious cranial nerve deficits. Motor grossly within normal limits. Five out of 5 muscle strength in the arms and legs. Normal speech. PSYCHIATRIC: Appropriate mood and affect; insight and judgment normal. Results - Labs CBC & Chem 7: 02/16/18 23:21 02/16/18 23:21 Labs: Short CBC 02/16/18 Range/Units 23:21 WBC 7.4 (4.0-11.0) th/mm3 Hgb 14.1 (13.0-17.0) gm/dL Hct 40.9 (39.0-51.0) % Plt Count 322 (150-450) th/mm3 BMP 02/16/18 23:21 Sodium 136 Potassium 5.1 Chloride 103 Carbon Dioxide 25.2 BUN 13 Creatinine 0.90 Calcium 9.4 Liver Function 02/16/18 Range/Units 23:21 Total Bilirubin 0.6 (0.2-1.0) mg/dL AST 79 H (15-37) U/L ALT 49 (12-78) U/L Alkaline Phosphatase 121 H (45-117) U/L Albumin 4.0 (3.4-5.0) g/dL - Imaging Impressions Abdomen/Pelvis CT 02/17/18 00:00 CONCLUSION: 1. Cirrhotic liver. 2. Changes of chronic pancreatitis. The acute changes. 2 largely resolved. Dictated the 2 cysts of the pancreas presumably related to pseudocysts. There is pancreatic duct dilatation. The ductal dilatation appears worse. Caprini VTE Risk Assessment Caprini VTE Risk Assessment: Moderate/High Risk (score >= 2) Caprini Risk Assessment Model: Point Value = 1 Point Value = 2 Point Value = 3 Point Value = 5 Age 41-60 Minor surgery BMI > 25 kg/m2 Swollen legs Varicose veins or History of unexplained or recurrent spontaneous Oral contraceptives or hormone replacement Sepsis (< 1 month) Serious lung disease, including pneumonia (< 1 month) Abnormal pulmonary function Acute myocardial infarction Congestive heart failure (< 1 month) History of inflammatory bowel disease Medical patient at bed rest Age 61-74 Arthroscopic surgery Major open surgery (> 45 min) Laparoscopic surgery (> 45 min) Malignancy Confined to bed (> 72 hours) Immobilizing plaster cast Central venous access Age >= 75 History of VTE Family history of VTE Factor V Leiden Prothrombin [id number] Lupus anticoagulant Anticardiolipin antibodies Elevated serum homocysteine Heparin-induced thrombocytopenia Other congenital or acquired thrombophilia Stroke (< 1 month) Elective arthroplasty Hip, pelvis, or leg fracture Acute spinal cord injury (< 1 month) Prophylaxis Regimen: Total Risk Factor Score Risk Level Prophylaxis Regimen 0-1 Low Early ambulation 2 Moderate Order ONE of the following: *Sequential Compression Device (SCD) *Heparin 5000 units SQ BID 3-4 Higher Order ONE of the following medications: *Heparin 5000 units SQ TID *Enoxaparin/Lovenox 40 mg SQ daily (WT < 150 kg, CrCl > 30 mL/min) *Enoxaparin/Lovenox 30 mg SQ daily (WT < 150 kg, CrCl > 10-29 mL/min) *Enoxaparin/Lovenox 30 mg SQ BID (WT < 150 kg, CrCl > 30 mL/min) AND/OR *Sequential Compression Device (SCD) 5 or more Highest Order ONE of the following medications: *Heparin 5000 units SQ TID (Preferred with Epidurals) *Enoxaparin/Lovenox 40 mg SQ daily (WT < 150 kg, CrCl > 30 mL/min) *Enoxaparin/Lovenox 30 mg SQ daily (WT < 150 kg, CrCl > 10-29 mL/min) *Enoxaparin/Lovenox 30 mg SQ BID (WT < 150 kg, CrCl > 30 mL/min) AND *Sequential Compression Device (SCD) Assessment and Plan - Plan //Acute on chronic alcoholic pancreatitis = CT abdomen with dilated ectatic duct = Lipase elevated at 3991. We will consult gastroenterology due to recurrent nature and pancreatic duct dilatation Aggressive IV fluid hydration and monitoring //Chronic alcoholism. Cessation counseling provided. [facility] protocol ordered. //Chronic tobacco abuse. Cessation counseling provided. Discussed Condition With: Patient, nurse, ED physician. H&P: Quality - VTE Deep Vein Thrombosis/Pulmonary Embolism Present on Admission: No
[2018-02-17] MEDS: Lipase/Protease/Amylase 24/76/120 DR Capsule PO SCH ×2 (08:58→21:22)
[2018-02-17 09:39] LABS: Bacteria,Urine Rare /hpf; Bilirubin,Urine Negative (Negative); Clarity,Urine Clear (Clear); Color,Urine Yellow (Yellw/Straw); Glucose,Urine (UA) Negative (Negative); Leukocyte Esterase,Urine Negative (Negative); Mucus,Urine Few /lpf (Occasional); Nitrite,Urine Negative (Negative); Squamous Epithelial Cell,Urine <1 /hpf (0-5)
--- NOTE | 2018-02-17 10:50 | ECG ---
Date Performed: 02/16/2018 Time Performed: 23:42:35 PTAGE: 63 years EKG: Sinus rhythm SEPTAL MYOCARDIAL INFARCTION ST ABNORMALITY, CONSIDER EARLY REPOLARIZATION ABNORMAL ECG PREVIOUS TRACING : 09/11/2011 16.28 No significant change from previous tracing noted. DOCTOR: Cam Tejada Interpretating Date/Time 02/17/2018 10:48:42
--- NOTE | 2018-02-17 15:03 | P.PNIM ---
Patient seen/examined. Complains of abdominal pain. Patient is started on creon. Currently on IV fluid as well. He has tolerated some liquids including coffee today. Will put him on Full liquid diet. He complains of inadequate pain control. Will change pain meds to Acetaminophen for pain 1-4, Percocet for pain 5-10 and Morphine IV for breakthrough. Also add ativan PO for anxiety. Anticipated discharge within 24-48 hours.
[2018-02-17] MEDS: LORazepam 1 MG Tablet PO PRN (15:26)
[2018-02-17] MEDS: Morphine Inj 4 MG/ML Vial IV.PUSH PRN ×2 (15:26→21:22)
--- NOTE | 2018-02-17 19:26 | P.CONGI ---
History of Present Illness Consult date: 02/17/18 Consult reason: Pancreatitis with pancreatic duct dilatation Chief complaint: Acute on Chronic Pancreatitis History of Present Illness: This patient is a 63-year-old male with past medical history significant for alcohol-induced acute pancreatitis, COPD, colitis, fatty liver, hepatitis C, cirrhosis of the liver and pancreatitis. Patient presented to [facility] with report of one week history of epigastric pain that radiated to upper back. Patient reports associated nausea with decreased appetite over the last week. Patient endorses that he drinks 4-5 beers daily and did drink beer prior to being admitted to the hospital. Patient reports recent loose stools without any noted bleeding and denies any fever or chills. Patient denies any past history of EGD or colonoscopy. Our service has been consulted to evaluate patient for pancreatitis with pancreatic duct dilatation Review of Systems All other systems reviewed negative except as stated in HPI [facility] - History History Provided By: Patient - Medical History Medical History: Medical History (Last Reviewed 02/17/18 @ 06:22 by Angel Ponce MD) Alcohol induced acute pancreatitis COPD (chronic obstructive pulmonary disease) Colitis Fatty liver Hepatitis C History of cirrhosis of liver Pancreatitis - Surgical History Surgical History: Surgical History (Last Reviewed 02/17/18 @ 06:22 by Angel Ponce MD) Hx of colonoscopy - Family History Family History: Family History (Last Updated 02/17/18 @ 06:22 by Angel Ponce MD) Brother Colon cancer Father Family estrangement Mother Family estrangement - Tobacco History Second Hand Smoke Exposure: Yes Tobacco Use In Past 30 Days: Yes Smoking Status: Current every day smoker Tobacco Type: Cigarettes - Alcohol History How Often Do You Have a Drink Containing Alcohol: 4 or more times a week - Substance Use History Substance History: Active Abuse - Substance Use Type Marijuana Status: Active Route Used: Inhalation Last Used: weekly Reason for Use: Feels Good - Travel History Recent Travel in the [place] Within the Last 8 Weeks: No Recent Travel Out of the Country Within the Last 8 Weeks: No - Immunization History Tetanus Immunization: <5 Years Tetanus Immunization Year if Known: 2015 Hx Influenza Vaccine This Season: No Medications and Allergies Active Medications: Active Medications Acetaminophen (Tylenol) 650 mg PO Q4H PRN PRN Reason: Headache, fever, pain 1-4 Al Hydroxide/Mg Hydroxide (Milk Of Magnesia Liq) 30 ml PO Q12H PRN PRN Reason: Mild Constipation Albuterol (Ventolin Hfa Inh) 2 puff INH Q4H PRN PRN Reason: Shortness Of Breath Lipase/Protease/Amylase (Michael Klein 24/76/120) 1 cap PO BID [facility] Last Admin: 02/17/18 08:58 Dose: 1 cap Bisacodyl (Dulcolax Supp) 10 mg RECTAL DAILY PRN PRN Reason: SEVERE CONSITIPATION Flumazenil (Romazecon Inj) 0.2 mg IV.PUSH Q1M PRN PRN Reason: OVERSEDATION Haloperidol Lactate (Haldol Inj) 1 mg IV.PUSH Q15M PRN PRN Reason: for severe agitation Sodium Chloride (Ns Inj) 1,000 mls @ 200 mls/hr IV.CONT .Q5H [facility] Last Admin: 02/17/18 15:25 Dose: 200 mls/hr Lactulose (Lactulose Liq) 30 ml PO DAILY PRN PRN Reason: SEVERE CONSITIPATION Lorazepam (Ativan) 1 mg PO Q4H PRN PRN Reason: for CIWA 8-10 Lorazepam (Ativan) 2 mg PO Q2H PRN PRN Reason: for CIWA 11-14 Lorazepam (Ativan Inj) 2 mg IV.PUSH Q2H PRN PRN Reason: for CIWA 11-14 Lorazepam (Ativan Inj) 2 mg IV.PUSH Q1H PRN PRN Reason: for CIWA 15-20 Lorazepam (Ativan Inj) 2 mg IV.PUSH Q15M PRN PRN Reason: for CIWA > 20 Lorazepam (Ativan Inj) 1 mg IV.PUSH Q4H PRN PRN Reason: for CIWA 8-10 Last Admin: 02/17/18 04:47 Dose: 1 mg Lorazepam (Ativan) 1 mg PO Q8H PRN PRN Reason: ANXIETY Last Admin: 02/17/18 15:26 Dose: 1 mg Morphine Sulfate (Morphine Inj) 4 mg IV.PUSH Q3H PRN PRN Reason: BREAKTHROUGH PAIN Last Admin: 02/17/18 15:26 Dose: 4 mg Naloxone HCl (Narcan Inj) 0.4 mg IV.PUSH UNSCH PRN PRN Reason: SEE LABEL COMMENTS Ondansetron HCl (Zofran Inj) 4 mg IV.PUSH Q6H PRN PRN Reason: NAUSEA OR VOMITING Oxycodone/Acetaminophen (Percocet 7.5/325 Mg) 1 tab PO Q6H PRN PRN Reason: Pain 5-10 Pantoprazole Sodium (Protonix) 40 mg PO DAILY [facility] Last Admin: 02/17/18 08:59 Dose: 40 mg Sennosides (Senokot) 17.2 mg PO Q12H PRN PRN Reason: Moderate Constipation Sodium Chloride (Ns Flush) 2 ml IV.FLUSH BID [facility] Last Admin: 02/17/18 08:58 Dose: Not Given Sodium Chloride (Ns Flush) 2 ml IV.FLUSH PRN PRN PRN Reason: FLUSH AFTER USING IV ACCESS Thiamine HCl (Vitamin B1) 100 mg PO DAILY [facility] Last Admin: 02/17/18 08:58 Dose: 100 mg Allergies Allergy/AdvReac Type Severity Reaction Status Date / Time codeine AdvReac Mild SWEATS Verified 02/16/18 23:02 Home Medications Medication Instructions Recorded Confirmed Type hydrocodone-acetaminophen 1 tab PO Q4H PRN 09/03/17 02/16/18 History famotidine 20 mg PO BID 11/24/17 02/16/18 History dehzra-jxdgiqrb-hyeuadv [Creon] 3,000 units PO BID 11/24/17 02/16/18 History albuterol sulfate [Ventolin HFA] 2 puff INHALATION Q4-6H PRN 12/29/17 02/16/18 History omeprazole 40 mg PO DAILY 12/29/17 02/16/18 History cyanocobalamin-cobamamide [B12] 100 mcg SUBLINGUAL 02/16/18 History saaqfv-yxlepxcr-hjqcahy [Creon] 2,600 units/day PO 02/16/18 History Exam Vital signs: Vital Signs 02/16/18 23:00 02/16/18 23:02 02/17/18 02:02 Temperature 98.2 F Pulse Rate 84 69 65 Respiratory Rate 16 16 16 Blood Pressure 158/74 H 174/85 H 110/70 Pulse Oximetry 97 98 97 02/17/18 04:00 02/17/18 08:00 02/17/18 12:00 Temperature 97.6 F 98.1 F 98.1 F Pulse Rate 65 66 64 Respiratory Rate 20 16 20 Blood Pressure 150/74 H 150/81 H 155/79 H Pulse Oximetry 97 96 97 02/17/18 16:00 Temperature 97.5 F L Pulse Rate 71 Respiratory Rate 20 Blood Pressure 175/80 H Pulse Oximetry 97 Intake & Output 02/17/18 02/17/18 02/18/18 06:59 18:59 06:59 Intake Total 1999 Balance 1999 Weight 57.2 kg Intake: IV 1000 / 1000 1999 NS Inj 1,000 ML @ 200 mls/hr IV 0 / 0 1999 .CONT .Q5H [facility] Rx#:[id number] NS Inj 1,000 ML @ 1000 mls/hr 1000 / 1000 IV.SIG BOLUS [facility] Rx#:[id number] Oral 0 / 0 Other 1000 / 1000 Other: Other Intake Source Saline Solution # Voids 3 Weight On Admission 57.2 kg - Constitutional no acute distress, chronically ill appearing - Routine HEENT Exam Head: Present: normocephalic - Routine Respiratory Exam Present: CTA bilaterally - Routine Cardiovascular Exam Present: RRR - Routine Abdominal Exam Present: soft, normoactive bowel sounds, tenderness, surgical scars. Absent: distended, rebound, guarding, firm - Routine Extremities Exam Absent: edema - Routine Skin Exam Present: dry, warm - Routine Neurological Exam Present: alert Results - Labs CBC & Chem 7: 02/16/18 23:21 02/16/18 23:21 Labs: Laboratory Results - last 24 hr 02/16/18 02/16/18 02/17/18 23:21 23:21 09:00 WBC 7.4 RBC 4.22 L Hgb 14.1 Hct 40.9 MCV 97.0 MCH 33.4 MCHC 34.5 RDW 14.2 Plt Count 322 MPV 7.6 Neut % (Auto) 48.0 Lymph % (Auto) 36.6 Republic % (Auto) 11.1 H Eos % (Auto) 3.1 Baso % (Auto) 1.2 Neut # (Auto) 3.6 Lymph # (Auto) 2.7 Republic # (Auto) 0.8 Eos # (Auto) 0.2 Baso # (Auto) 0.1 WBC Differential . Differential Comment Auto diff final Sodium 136 Potassium 5.1 Chloride 103 Carbon Dioxide 25.2 Anion Gap 8 BUN 13 Creatinine 0.90 Estimated GFR 86 L Random Glucose 103 Calcium 9.4 Magnesium 2.0 Total Bilirubin 0.6 AST 79 H ALT 49 Alkaline Phosphatase 121 H Total Protein 8.4 H Albumin 4.0 Lipase 3991 H Urine Color Yellow Urine Clarity Clear Urine pH 5.0 Ur Specific [place] Greater than 1.060 H Urine Protein Negative Urine Glucose (UA) Negative Urine Ketones Negative Urine Occult Blood Negative Urine Nitrate Negative Urine Bilirubin Negative Urine Urobilinogen Less than 2 Ur Leukocyte Esterase Negative Urine RBC 1 Ur Squamous Epith Cells <1 Urine Bacteria Rare H Urine Mucus Few H Micro UA Comment Culture not ind Ur Microscopic Review Not Reportable Urine Culture Comments Culture not ind - Imaging Impressions Abdomen/Pelvis CT 02/17/18 00:00 CONCLUSION: 1. Cirrhotic liver. 2. Changes of chronic pancreatitis. The acute changes. 2 largely resolved. Dictated the 2 cysts of the pancreas presumably related to pseudocysts. There is pancreatic duct dilatation. The ductal dilatation appears worse. Assessment and Plan (1) Acute on chronic pancreatitis Status: Acute Code(s): K85.90 - Acute pancreatitis without necrosis or infection, unspecified; K86.1 - Other chronic pancreatitis - Plan This patient is a 63-year-old male with past medical history significant for alcohol-induced acute pancreatitis, COPD, colitis, fatty liver, hepatitis C, cirrhosis of the liver and pancreatitis. Patient presented to [facility] with report of one week history of epigastric pain that radiated to upper back. Patient reports associated nausea with decreased appetite over the last week. Patient endorses that he drinks 4-5 beers daily and did drink beer prior to being admitted to the hospital. Patient reports recent loose stools without any noted bleeding and denies any fever or chills. Patient denies any past history of EGD or colonoscopy. Our service has been consulted to evaluate patient for pancreatitis with pancreatic duct dilatation Pancreatitis with pancreatic duct dilatation Patient endorses 1 week history of upper abdominal/epigastric pain that he describes as a burning sensation. Patient states pain has been constant without any aggravating or alleviating factors. Patient reports continued EtOH use over the last week, most recent being the day before admission. 02/17/2018 CT abdomen and pelvis reveal the following-- 1. Cirrhotic liver. 2. Changes of chronic pancreatitis. The acute changes. 2 largely resolved. Dictated the 2 cysts of the pancreas presumably related to pseudocysts. There is pancreatic duct dilatation. The ductal dilatation appears worse. WBC 7.4 hemoglobin 14.1 hematocrit 40.9 total bilirubin 0.6 AST 79 ALT 49 alk phos 121 lipase 3991 Plan -Full liquid diet -Ultrasound of gallbladder -CA 199 -Monitor labs -Analgesics and antiemetics as per attending -Creon -Continue IV hydration -Pantoprazole 40 mg p.o. daily -Supportive care -Further recommendations to follow This patient has been seen by myself and Dr. Dawn and this note is written on his behalf - Attending Attestation Dr. Dawn
[2018-02-18] MEDS: Morphine Inj 4 MG/ML Vial IV.PUSH PRN ×4 (02:16→19:21)
[2018-02-18] MEDS: Sod Chloride 0.9% Inj 1,000 ML IV.CONT SCH ×2 (02:21→07:28)
[2018-02-18] MEDS: Lipase/Protease/Amylase 24/76/120 DR Capsule PO SCH ×2 (08:51→20:15)
[2018-02-18] MEDS: LORazepam 1 MG Tablet PO PRN ×2 (08:52→18:02)
[2018-02-18 09:15] LABS: Baso % (Auto) 0.2 % (0.0-2.0); Eos # (Auto) 0.2 th/mm3 (0.0-0.4); Eos % (Auto) 2.9 % (0.0-4.0); Hematocrit 36.4 % (39.0-51.0); Hemoglobin 12.6 gm/dL (13.0-17.0); Lymph # (Auto) 1.7 th/mm3 (1.0-4.8); Lymph % (Auto) 32.3 % (9.0-44.0); Mean Corpuscular HGB Conc 34.7 % (32.0-36.0); Mean Corpuscular Hemoglobin 34.1 pg (27.0-34.0); Mean Corpuscular Volume 98.3 fL (80.0-100.0); Mean Platelet Volume 7.7 fL (7.0-11.0); Mono # (Auto) 0.4 th/mm3 (0.0-0.9); Mono % (Auto) 7.2 % (0.0-8.0); Neut % (Auto) 57.4 % (16.0-70.0); Platelet Count 250 th/mm3 (150-450); Red Blood Count 3.71 mil/mm3 (4.50-5.90); Red Cell Distribution Width 13.9 % (11.6-17.2); White Blood Count 5.3 th/mm3 (4.0-11.0)
[2018-02-18 09:44] LABS: Alanine Aminotransferase 34 U/L (12-78); Albumin 3.1 g/dL (3.4-5.0); Alkaline Phosphatase 97 U/L (45-117); Anion Gap 9 meq/L (5-15); Aspartate Aminotransferase 44 U/L (15-37); Blood Urea Nitrogen 5 mg/dL (7-18); Calcium 7.6 mg/dL (8.5-10.1); Carbon Dioxide 21.4 meq/L (21.0-32.0); Chloride 114 meq/L (98-107); Glomerular Filtration Rate Greater Than 89 mL/min (>89); Glucose,Random 94 mg/dL (74-106); Potassium 3.7 meq/L (3.5-5.1); Sodium 144 meq/L (136-145); Total Protein 6.2 g/dL (6.4-8.2)
--- NOTE | 2018-02-18 10:35 | US ---
EXAM DATE: 02/18/2018 10:13 AM EST AGE/SEX: 63 years / Male INDICATIONS: Chronic pancreatitis. CLINICAL DATA: This is the patient's subsequent encounter. Patient reports that signs and symptoms h ave been present for > 1 year and indicates a pain score of 10/10. MEDICAL/SURGICAL HISTORY: Chronic obstructive pulmonary disease. Hepatitis C. Cirrhosis. Alc ohol induced acute pancreatitis. Colitis. Fatty liver . History of Colonoscopy. COMPAR[place]: [facility] [place]AST, 02/17/2018. [facility] [place]EL[place] CONTRAS T, 12/15/2017. . MEASUREMENTS: Liver:__ 16.9 cm. Common Bile Duct:__ 6mm. FINDINGS: Liver: The liver is mildly heterogeneous in echotexture and demonstrates a suggestion of a nodular c ontour within the right lobe. No discrete mass is seen. Portal Vein: Hepatopedal flow seen in portal vein. Common Duct: No intraluminal mass or stone visualized. Gallbladder: Demonstrates no wall thickening or pericholecystic fluid. No stones visualized. Pancreas: The pancreas is heterogeneous with multiple calcifications. There is a solid and cystic le ester identified within the head of the pancreas with the solid components demonstrating no internal v ascularity. This lesion measures 3.0 x 2.4 x 3.1 cm. The distal body and tail are not visualized. Right Kidney: Normal echogenicity and cortical thickness. No mass or hydronephrosis. Other: Trace fluid fluid identified adjacent to the gallbladder fossa and right lobe of the liver. CONCLUSION: 1. Imaged portion of the pancreas is consistent with patient's history of chronic pancreatitis with a pseudocyst formation identified within the pancreatic head. The lesion identified within the distal pancreas is not visualized by ultrasound. 2. The liver appears heterogeneous in echotexture and demonstrates a somewhat nodular contour concer fer for changes of cirrhosis. Small amount of free fluid identified adjacent to the right lobe of th e liver. Electronically signed by: Katy Card MD Board Certified Radiologist 02/18/2018 10:33 AM E
--- NOTE | 2018-02-18 16:39 | MR ---
EXAM DATE: 02/18/2018 4:33 PM EST AGE/SEX: 63 years / Male INDICATIONS: Pancreatitis. CLINICAL DATA: This is the patient's initial encounter. Patient reports that signs and symptoms have been present for 2 days and indicates a pain score of 3/10. MEDICAL/SURGICAL HISTORY: None. None. COMPARISON: [facility] [place], CT ABDOMEN & PELVIS W CONTRAST, 02/17/2018. . TECHNIQUE: Multiplanar, multisequence images of the abdomen were obtained without contrast including dedicated cholangiographic images. FINDINGS: Simple cysts are present in the kidneys. There is a cystic mass in the head of the pancreas measures 2.3 cm in size with multiple calcifications within it and the pancreatic duct appears dilated as desc ribed on the patient's prior CT examination and beaded in appearance maximum diameter of 8 mm. There is a separate cystic area in the tail the pancreas measures 2 cm in size and these are probably pseud ocysts from prior pancreatitis. Additional calcifications are seen in the region of the head of the p ancreas body and tail of the pancreas. Common bile duct measures 6 to 7 mm in size without definite f illing defects. CONCLUSION: 1. Cystic masses in the pancreas which demonstrate calcifications in addition to atrophic pancreas w ith dilated pancreatic duct sequelae of chronic pancreatitis. 2. No definite filling defects within common bile duct which does not appear to be dilated. Electronically signed by: Jatin Sarah MD Board Certified Radiologist 02/18/2018 4:38 PM EST
--- NOTE | 2018-02-18 20:42 | P.PNIM ---
Subjective Interval history: Follow up for alcoholic acute on chronic pancreatitis. Patient is currently doing well. Tolerating liquid diet. However, when we advanced diet to full liquid, he had n/v. No fever, chills. Physical Exam Vital signs: Last Vital Signs Temp 98.0 F 02/18/18 12:03 Pulse 67 02/18/18 12:03 Resp 16 02/18/18 12:03 BP 146/71 H 02/18/18 12:03 Pulse Ox 96 02/18/18 12:03 Intake & Output 02/16/18 02/17/18 02/18/18 02/19/18 06:59 06:59 06:59 06:59 Intake Total 1999 4000 / 4000 1300 / 1300 Output Total Balance 1999 3997 / 3997 1300 / 1300 Weight 57.2 kg 58.9 kg GENERAL: Alert, Oriented x 3, NAD. SKIN: Warm and dry. HEAD: Normocephalic. EYES: No scleral icterus. No injection or drainage. NECK: Supple, trachea midline. No JVD or lymphadenopathy. CARDIOVASCULAR: Regular rate and rhythm without murmurs, gallops, or rubs. RESPIRATORY: Breath sounds equal bilaterally. No accessory muscle use. GASTROINTESTINAL: Abdomen soft, tender to palpation robin RUQ, nondistended. MUSCULOSKELETAL: No cyanosis, or edema. BACK: Nontender without obvious deformity. No CVA tenderness. Results Labs CBC & Chem 7: 02/18/18 08:45 02/18/18 08:40 Imaging Imaging: Impressions Cholangiopancreatography MRI 02/18/18 14:13 CONCLUSION: 1. Cystic masses in the pancreas which demonstrate calcifications in addition to atrophic pancreas with dilated pancreatic duct sequelae of chronic pancreatitis. 2. No definite filling defects within common bile duct which does not appear to be dilated. Gallbladder Ultrasound 02/18/18 19:14 CONCLUSION: 1. Imaged portion of the pancreas is consistent with patient's history of chronic pancreatitis with a pseudocyst formation identified within the pancreatic head. The lesion identified within the distal pancreas is not visualized by ultrasound. 2. The liver appears heterogeneous in echotexture and demonstrates a somewhat nodular contour concerning for changes of cirrhosis. Small amount of free fluid identified adjacent to the right lobe of the liver. Assessment and Plan (1) Acute on chronic pancreatitis: Code(s): K85.90 - Acute pancreatitis without necrosis or infection, unspecified; K86.1 - Other chronic pancreatitis Status: Acute Plan Mr. Vincent is a 63 year old male with a history of previous pancreatitis, alcohol use who presented to the ED due to abdominal pain. He was diagnosed with acute on chronic pancreatitis. Acute on Chronic pancreatitis -Currently on PO and IV pain meds, liquid diet. -GI following. GB US did not show any GB pathology -GI ordered CA19-9 which is elevated. Liver cirrhosis -GB US Shows evidence of cirrhosis. -Counselled patient not to use NSAIDs Alcohol abuse -Patient is counselled. Continue CIWA protocol. Full code. Ambulation Discharge: Will discharge when patient is able to tolerate PO food better Progress Note: Quality VTE Deep Vein Thrombosis/Pulmonary Embolism Present on Admission: No
[2018-02-19] MEDS: Morphine Inj 4 MG/ML Vial IV.PUSH PRN ×4 (02:04→20:36)
[2018-02-19] MEDS: Lipase/Protease/Amylase 24/76/120 DR Capsule PO SCH ×2 (09:05→20:37)
[2018-02-19] MEDS: LORazepam 1 MG Tablet PO PRN ×2 (09:06→18:53)
[2018-02-19 09:46] LABS: Baso % (Auto) 0.3 % (0.0-2.0); Eos # (Auto) 0.2 th/mm3 (0.0-0.4); Eos % (Auto) 3.3 % (0.0-4.0); Hematocrit 37.8 % (39.0-51.0); Hemoglobin 12.8 gm/dL (13.0-17.0); Lymph % (Auto) 34.1 % (9.0-44.0); Mean Corpuscular HGB Conc 33.8 % (32.0-36.0); Mean Corpuscular Hemoglobin 33.8 pg (27.0-34.0); Mean Corpuscular Volume 100.1 fL (80.0-100.0); Mean Platelet Volume 8.3 fL (7.0-11.0); Mono # (Auto) 0.5 th/mm3 (0.0-0.9); Mono % (Auto) 8.3 % (0.0-8.0); Neut # (Auto) 3.2 th/mm3 (1.8-7.7); Platelet Count 242 th/mm3 (150-450); Red Blood Count 3.78 mil/mm3 (4.50-5.90); Red Cell Distribution Width 13.6 % (11.6-17.2); White Blood Count 5.9 th/mm3 (4.0-11.0)
[2018-02-19 10:05] LABS: Albumin 3.2 g/dL (3.4-5.0); Anion Gap 6 meq/L (5-15); Aspartate Aminotransferase 42 U/L (15-37); Blood Urea Nitrogen 5 mg/dL (7-18); Carbon Dioxide 25.3 meq/L (21.0-32.0); Chloride 110 meq/L (98-107); Glomerular Filtration Rate Greater Than 89 mL/min (>89); Glucose,Random 88 mg/dL (74-106); Lipase 1267 U/L (73-393); Potassium 3.6 meq/L (3.5-5.1); Sodium 141 meq/L (136-145)
[2018-02-19 10:06] LABS: Amylase 149 U/L (25-115)
[2018-02-19 10:07] LABS: Alanine Aminotransferase 35 U/L (12-78)
[2018-02-19 10:08] LABS: Alkaline Phosphatase 96 U/L (45-117); Total Protein 6.3 g/dL (6.4-8.2)
--- NOTE | 2018-02-19 17:15 | P.PNGI ---
Subjective Interval history: Patient awake and alert ambulating in room Reports mild abdominal discomfort States he is hungry Post MRCP <Justa Joycey - Last Filed: 02/19/18 17:07> Physical Exam Vital signs: Vital Signs 02/18/18 20:00 02/19/18 00:00 02/19/18 04:00 Temperature 97.6 F 97.7 F 97.7 F Pulse Rate 60 68 61 Respiratory Rate 20 20 20 Blood Pressure 159/82 H 120/57 L 131/63 Pulse Oximetry 98 96 96 02/19/18 07:45 Temperature 98.0 F Pulse Rate 57 L Respiratory Rate 18 Blood Pressure 121/62 Pulse Oximetry 96 Intake & Output 02/18/18 02/19/18 02/19/18 18:59 06:59 18:59 Intake Total 1300 / 1300 Balance 1300 / 1300 Weight 60 kg Intake: IV 1300 / 1300 NS Inj 1,000 ML @ 200 mls/hr IV 1300 / 1300 .CONT .Q5H [facility] Rx#:[id number] Other: # Voids 4 1 - Constitutional no acute distress, chronically ill appearing - Routine Respiratory Exam Present: CTA bilaterally. Absent: accessory muscle use - Routine Cardiovascular Exam Present: RRR - Routine Abdominal Exam Present: soft, normoactive bowel sounds. Absent: tenderness, distended, guarding, firm - Routine Extremities Exam Absent: edema - Routine Skin Exam Present: dry, warm - Routine Neurological Exam Present: alert <JoyMargarita - Last Filed: 02/19/18 17:07> Vital signs: Vital Signs 02/19/18 12:31 02/19/18 15:55 02/19/18 19:54 Temperature 97.3 F L 98.2 F Pulse Rate 60 62 Respiratory Rate 16 18 16 Blood Pressure 172/84 H 168/83 H Pulse Oximetry 94 L 97 02/19/18 20:00 02/19/18 21:09 02/20/18 00:00 Temperature 98.2 F 98.3 F Pulse Rate 62 63 Respiratory Rate 18 16 18 Blood Pressure 152/89 H 157/87 H Pulse Oximetry 97 94 L 02/20/18 04:00 02/20/18 07:40 Temperature 98.2 F 98.2 F Pulse Rate 61 60 Respiratory Rate 18 20 Blood Pressure 135/72 155/76 H Pulse Oximetry 95 95 Intake & Output 02/19/18 02/20/18 02/20/18 18:59 06:59 18:59 Other: # Voids 1 <Eloy Swann - Last Filed: 02/20/18 09:30> Results - Labs CBC & Chem 7: 02/19/18 08:11 02/19/18 08:11 Laboratory Results - last 24 hr 02/19/18 02/19/18 08:11 08:11 WBC 5.9 RBC 3.78 L Hgb 12.8 L Hct 37.8 L MCV 100.1 H MCH 33.8 MCHC 33.8 RDW 13.6 Plt Count 242 MPV 8.3 Neut % (Auto) 54.0 Lymph % (Auto) 34.1 [place] % (Auto) 8.3 H Eos % (Auto) 3.3 Baso % (Auto) 0.3 Neut # (Auto) 3.2 Lymph # (Auto) 2.0 [place] # (Auto) 0.5 Eos # (Auto) 0.2 Baso # (Auto) 0.0 WBC Differential . Differential Comment Auto diff final Sodium 141 Potassium 3.6 Chloride 110 H Carbon Dioxide 25.3 Anion Gap 6 BUN 5 L Creatinine 0.70 Estimated GFR Greater than 89 Random Glucose 88 Calcium 8.0 L Total Bilirubin 0.3 AST 42 H ALT 35 Alkaline Phosphatase 96 Total Protein 6.3 L Albumin 3.2 L Amylase 149 H Lipase 1267 H <RufinoMargarita - Last Filed: 02/19/18 17:07> - Labs CBC & Chem 7: 02/19/18 08:11 02/19/18 08:11 Laboratory Results - last 24 hr 02/19/18 02/19/18 08:11 08:11 WBC 5.9 RBC 3.78 L Hgb 12.8 L Hct 37.8 L MCV 100.1 H MCH 33.8 MCHC 33.8 RDW 13.6 Plt Count 242 MPV 8.3 Neut % (Auto) 54.0 Lymph % (Auto) 34.1 [place] % (Auto) 8.3 H Eos % (Auto) 3.3 Baso % (Auto) 0.3 Neut # (Auto) 3.2 Lymph # (Auto) 2.0 [place] # (Auto) 0.5 Eos # (Auto) 0.2 Baso # (Auto) 0.0 WBC Differential . Differential Comment Auto diff final Sodium 141 Potassium 3.6 Chloride 110 H Carbon Dioxide 25.3 Anion Gap 6 BUN 5 L Creatinine 0.70 Estimated GFR Greater than 89 Random Glucose 88 Calcium 8.0 L Total Bilirubin 0.3 AST 42 H ALT 35 Alkaline Phosphatase 96 Total Protein 6.3 L Albumin 3.2 L Amylase 149 H Lipase 1267 H <Eloy Swann - Last Filed: 02/20/18 09:30> Assessment and Plan (1) Acute on chronic pancreatitis Status: Acute Code(s): K85.90 - Acute pancreatitis without necrosis or infection, unspecified; K86.1 - Other chronic pancreatitis - Plan This patient is a 63-year-old male with past medical history significant for alcohol-induced acute pancreatitis, COPD, colitis, fatty liver, hepatitis C, cirrhosis of the liver and pancreatitis. Patient presented to [facility] with report of one week history of epigastric pain that radiated to upper back. Patient reports associated nausea with decreased appetite over the last week. Patient endorses that he drinks 4-5 beers daily and did drink beer prior to being admitted to the hospital. Patient reports recent loose stools without any noted bleeding and denies any fever or chills. Patient denies any past history of EGD or colonoscopy. Our service has been consulted to evaluate patient for pancreatitis with pancreatic duct dilatation Pancreatitis with pancreatic duct dilatation Patient endorses 1 week history of upper abdominal/epigastric pain that he describes as a burning sensation. Patient states pain has been constant without any aggravating or alleviating factors. Patient reports continued EtOH use over the last week, most recent being the day before admission. 02/17/2018 CT abdomen and pelvis reveal the following-- 1. Cirrhotic liver. 2. Changes of chronic pancreatitis. The acute changes. 2 largely resolved. Dictated the 2 cysts of the pancreas presumably related to pseudocysts. There is pancreatic duct dilatation. The ductal dilatation appears worse. WBC 7.4 hemoglobin 14.1 hematocrit 40.9 total bilirubin 0.6 AST 79 ALT 49 alk phos 121 lipase 3991 02/19/2018 Pancreatic duct dilatation-pancreatitis Pseudocyst 02/18/2018 MRCP-. Cystic masses in the pancreas which demonstrate calcifications in addition to atrophic pancreas with dilated pancreatic duct sequelae of chronic pancreatitis. No definite filling defects within common bile duct which does not appear to be dilated. 02/18/2018 gallbladder ultrasound-. Imaged portion of the pancreas is consistent with patient's history of chronic pancreatitis with a pseudocyst formation identified within the pancreatic head. The lesion identified within the distal pancreas is not visualized by ultrasound. The liver appears heterogeneous in echotexture and demonstrates a somewhat nodular contour concerning for changes of cirrhosis. Small amount of free fluid identified adjacent to the right lobe of the liver. -WBC 5.9 hemoglobin 12.8 hematocrit 37.8 platelet count 242 total bilirubin 0.3 AST 42 ALT 35 alk phos 96 albumin 3.2 amylase 149 lipase 1267 trending down Plan -Clear liquid diet -We will recheck CA 199 1 lipase normalizes -Analgesics and antiemetics as per attending -Creon -Continue PPI -We will consider EUS upon resolution of pancreatitis -Supportive care -Further recommendations to follow This patient has been seen by myself and Dr. Swann and this note is written on his behalf - Attending Attestation Dr. Swann <Margarita Joy - Last Filed: 02/19/18 17:07> (1) Acute on chronic pancreatitis Status: Acute Code(s): K85.90 - Acute pancreatitis without necrosis or infection, unspecified; K86.1 - Other chronic pancreatitis - Attending Attestation Patient seen and examined. Agree with above. <Eloy Swann - Last Filed: 02/20/18 09:30>
--- NOTE | 2018-02-19 21:43 | P.PNIM ---
Subjective Interval history: Follow up for alcoholic acute on chronic pancreatitis. Patient is resting in bed, complains of abdominal pain. He wants to have some hot coffee or tea. No fever, chills. Currently on clear liquid diet. Physical Exam Vital signs: Last Vital Signs Temp 98.2 F 02/19/18 15:55 Pulse 62 02/19/18 15:55 Resp 16 02/19/18 21:09 BP 168/83 H 02/19/18 15:55 Pulse Ox 97 02/19/18 15:55 Intake & Output 02/17/18 02/18/18 02/19/18 02/20/18 06:59 06:59 06:59 06:59 Intake Total 1999 4000 / 4000 1300 / 1300 Output Total Balance 1999 3997 / 3997 1300 / 1300 Weight 57.2 kg 58.9 kg 60 kg GENERAL: Alert, NAD. SKIN: Warm and dry. HEAD: Normocephalic. EYES: No scleral icterus. No injection or drainage. NECK: Supple, trachea midline. No JVD or lymphadenopathy. CARDIOVASCULAR: Regular rate and rhythm without murmurs, gallops, or rubs. RESPIRATORY: Breath sounds equal bilaterally. No accessory muscle use. GASTROINTESTINAL: Abdomen soft, some tenderness to palpation robin RUQ, nondistended. MUSCULOSKELETAL: No cyanosis, or edema. BACK: Nontender without obvious deformity. No CVA tenderness. Results Labs CBC & Chem 7: 02/19/18 08:11 02/19/18 08:11 Assessment and Plan (1) Acute on chronic pancreatitis: Code(s): K85.90 - Acute pancreatitis without necrosis or infection, unspecified; K86.1 - Other chronic pancreatitis Status: Acute Plan Mr. Vincent is a 63 year old male with a history of previous pancreatitis, alcohol use who presented to the ED due to abdominal pain. He was diagnosed with acute on chronic pancreatitis. Acute on Chronic pancreatitis -Currently on PO and IV pain meds, liquid diet. Hot tea is okay to give. -GI following. GB US did not show any GB pathology -GI ordered CA19-9 which is elevated. -Discussed with GI - they will consider EUS. Dr. Bangura (GI) is expected to evaluate patient tomorrow. Liver cirrhosis -GB US Shows evidence of cirrhosis. -Counselled patient not to use NSAIDs Alcohol abuse -Patient is counselled. Continue CIWA protocol. Full code. Ambulation Progress Note: Quality VTE Deep Vein Thrombosis/Pulmonary Embolism Present on Admission: No
[2018-02-20] MEDS: Morphine Inj 4 MG/ML Vial IV.PUSH PRN ×6 (01:08→23:28)
[2018-02-20] MEDS: Lipase/Protease/Amylase 24/76/120 DR Capsule PO SCH ×2 (10:05→22:29)
[2018-02-20 11:18] LABS: Baso # (Auto) 0.1 th/mm3 (0.0-0.2); Baso % (Auto) 1.3 % (0.0-2.0); Eos # (Auto) 0.2 th/mm3 (0.0-0.4); Eos % (Auto) 2.3 % (0.0-4.0); Hemoglobin 13.3 gm/dL (13.0-17.0); Lymph # (Auto) 1.8 th/mm3 (1.0-4.8); Lymph % (Auto) 26.1 % (9.0-44.0); Mean Corpuscular Hemoglobin 33.9 pg (27.0-34.0); Mean Corpuscular Volume 99.6 fL (80.0-100.0); Mean Platelet Volume 7.7 fL (7.0-11.0); Mono # (Auto) 0.4 th/mm3 (0.0-0.9); Mono % (Auto) 6.2 % (0.0-8.0); Neut # (Auto) 4.4 th/mm3 (1.8-7.7); Neut % (Auto) 64.1 % (16.0-70.0); Platelet Count 221 th/mm3 (150-450); Red Blood Count 3.92 mil/mm3 (4.50-5.90); Red Cell Distribution Width 13.6 % (11.6-17.2); White Blood Count 6.9 th/mm3 (4.0-11.0)
[2018-02-20 11:37] LABS: Alanine Aminotransferase 39 U/L (12-78); Albumin 3.4 g/dL (3.4-5.0); Anion Gap 5 meq/L (5-15); Aspartate Aminotransferase 48 U/L (15-37); Blood Urea Nitrogen 4 mg/dL (7-18); Carbon Dioxide 27.9 meq/L (21.0-32.0); Chloride 108 meq/L (98-107); Glomerular Filtration Rate Greater Than 89 mL/min (>89); Glucose,Random 116 mg/dL (74-106); Potassium 3.5 meq/L (3.5-5.1); Sodium 141 meq/L (136-145)
[2018-02-20 11:39] LABS: Alkaline Phosphatase 99 U/L (45-117)
--- NOTE | 2018-02-20 12:55 | P.PNIM ---
Subjective Interval history: Follow-up for acute on chronic pancreatitis. Patient is somewhat upset that yesterday his belongings were searched. He is ambulating well and drinking Tea. He continues to have abdominal pain. GI evaluated patient and patient will likely undergo endoscopic ultrasound study today. Physical Exam Vital signs: Last Vital Signs Temp 98.2 F 02/20/18 07:40 Pulse 60 02/20/18 07:40 Resp 20 02/20/18 07:40 BP 155/76 H 02/20/18 07:40 Pulse Ox 95 02/20/18 07:40 Intake & Output 02/18/18 02/19/18 02/20/18 02/21/18 06:59 06:59 06:59 06:59 Intake Total 4000 / 4000 1300 / 1300 Output Total 3 / 3 Balance 3997 / 3997 1300 / 1300 Weight 58.9 kg 60 kg GENERAL: Alert, oriented x3, NAD. SKIN: Warm and dry. HEAD: Normocephalic. EYES: No scleral icterus. No injection or drainage. NECK: Supple, trachea midline. No JVD or lymphadenopathy. CARDIOVASCULAR: Regular rate and rhythm without murmurs, gallops, or rubs. RESPIRATORY: Breath sounds equal bilaterally. No accessory muscle use. GASTROINTESTINAL: Abdomen soft, mildly tender to palpation, nondistended. MUSCULOSKELETAL: No cyanosis, or edema. BACK: Nontender without obvious deformity. No CVA tenderness. Results Labs CBC & Chem 7: 02/20/18 11:05 02/20/18 11:05 Assessment and Plan (1) Acute on chronic pancreatitis: Code(s): K85.90 - Acute pancreatitis without necrosis or infection, unspecified; K86.1 - Other chronic pancreatitis Status: Acute Plan Mr. Vincent is a 63 year old male with a history of previous pancreatitis, alcohol use who presented to the ED due to abdominal pain. He was diagnosed with acute on chronic pancreatitis. Acute on Chronic pancreatitis -Currently on PO and IV pain meds, liquid diet. Hot tea is okay to give. -GI following. GB US did not show any GB pathology -GI ordered CA19-9 which is elevated. -We will keep patient n.p.o. for now. Dr. Avalos will likely do EUS today. Liver cirrhosis -GB US Shows evidence of cirrhosis. -Counselled patient not to use NSAIDs Alcohol abuse Anxiety -Continue PO Ativan for anxiety. -Patient is counselled. Continue CIWA protocol. Full code. Ambulation Progress Note: Quality VTE Deep Vein Thrombosis/Pulmonary Embolism Present on Admission: No
[2018-02-20] MEDS ORDERED: Chlorhexidine Gluconate 2% 1 Pack (2 Cloths) TOPICAL ONE (13:15)
[2018-02-20] MEDS ORDERED: Metoprolol Tartrate 25 MG Tablet PO ONE (13:15)
[2018-02-20] MEDS ORDERED: Sodium Chlor 0.9% Inj 500 ML IV.CONT ONE (13:15)
[2018-02-20 14:32] VITALS: RESP 20
--- NOTE | 2018-02-20 14:33 | P.PCN ---
Date of procedure: 02/20/18 Pre-op diagnosis: Acute on chronic pancreatitis, pseudocysts Procedure: PROCEDURE PERFORMED EUS PROCEDURE: The procedure, risks and benefits were discussed with Patient/POA and informed consent was obtained. Anesthesia sedated Patient with Diprivan. Patient was placed in the left lateral decubitus position. Endoscopic ultrasound: The Pentax videoscope was introduced through the oropharynx and advanced to the second portion of the duodenum. FINDINGS: The pancreatic parenchyma appeared to be abnormal from head to tail with inhomogeneous parenchyma with hypo and hyper echoic features with intensely hyperechoic foci suggestive of calcifications and a sign of chronic pancreatitis with a dilated pancreatic duct Pancreatic pseudocysts noted in the body and the head but with concern that there may be some debris within Gallbladder was unremarkable No lymphadenopathy noted Common bile duct appeared to be unremarkable and within normal limits with no filling defects and no obvious dilation The ampulla also appeared to be unremarkable ESTIMATED BLOOD LOSS: None SPECIMENS REMOVED: None COMPLICATIONS: None IMPRESSION: Acute on chronic pancreatitis Pancreatic pseudocysts possible necrosis PLAN: Continue with current supportive care Monitor labs Anesthesia: MAC Surgeon: Sai Avalos Condition: stable Disposition: floor
[2018-02-21] MEDS: Morphine Inj 4 MG/ML Vial IV.PUSH PRN ×2 (02:26→07:21)
[2018-02-21 08:41] VITALS: BP 139/68; PULSE 54; TEMP 98.5; O2SAT 97
[2018-02-21] MEDS ORDERED: amLODIPine 5 MG Tablet PO SCH (09:00)
[2018-02-21] MEDS: Lipase/Protease/Amylase 24/76/120 DR Capsule PO SCH (09:23)
--- NOTE | 2018-02-21 16:59 | P.DS ---
DS: Providers Date of admission: 02/17/18 00:55 Primary care physician: No Primary Care Physician Consults: 02/17/18 01:54 HUB Only Consult Order Routine Consulting Provider: Analy Beckford 02/17/18 06:24 Consult to Gastroenterology Routine Consulting Provider: Leno Dawn V Reason for Consultation: Pancreatitis with pancreatic duct dilatation Notified:: Service Spoke with:: Imelda Date Notified:: 02/17/18 Time Notified:: 06:53 Ordering Provider: NIDA 02/17/18 14:08 HUB Only Consult Order Routine Consulting Provider: Analy Beckford Brief History from admission: 63-year-old male with a history of recurrent alcoholic pancreatitis, hepatitis C , chronic cirrhosis who presents with a one-week history of intense burning epigastric pain with intermittent radiation to back. Patient reports nausea with extremely poor appetite over the past week however no vomiting. Patient says he drinks every day, about 7 or 8 drinks. Most recent drink was around 4 PM on 02/16. Patient denies any history of withdrawal or seizures. Positive diarrhea denies any fevers, chills. DS: Diagnosis Discharge Diagnosis (1) Acute on chronic pancreatitis: Status: Acute DS: Summary Mr. Vincent is a 63 year old male with a history of previous pancreatitis, alcohol use who presented to the ED due to abdominal pain. He was diagnosed with acute on chronic pancreatitis. Acute on Chronic pancreatitis -Currently on PO and IV pain meds, liquid diet. Hot tea is okay to give. -GI following. GB US did not show any GB pathology -GI ordered CA19-9 which is elevated. Patient underwent endoscopic ultrasound study on 02/20/2018 -shows pancreatic pseudocyst possible necrosis. GI cleared for discharge. A repeat CA 199 was ordered but blood sample was not obtained. Liver cirrhosis -GB US Shows evidence of cirrhosis. -Counselled patient not to use NSAIDs Alcohol abuse Anxiety -Continue PO Ativan for anxiety. -Patient is counselled. Continue CIWA protocol. Overall, patient was ablating well, tolerated regular food well. He was extensively counseled regarding tobacco as well as alcohol abuse. Patient verbalized understanding. Patient was subsequently discharged home. Time Spent with Patient Total time spent providing and/or coordinating discharge services: Quality: VTE Deep Vein Thrombosis/Pulmonary Embolism Present on Admission: No Exam Narrative Exam Narrative: GENERAL: Alert, oriented x3, NAD. SKIN: Warm and dry. HEAD: Normocephalic. EYES: No scleral icterus. No injection or drainage. NECK: Supple, trachea midline. No JVD or lymphadenopathy. CARDIOVASCULAR: Regular rate and rhythm without murmurs, gallops, or rubs. RESPIRATORY: Breath sounds equal bilaterally. No accessory muscle use. GASTROINTESTINAL: Abdomen soft, non-tender, nondistended. MUSCULOSKELETAL: No cyanosis, or edema. BACK: Nontender without obvious deformity. No CVA tenderness. Results Labs on day of discharge: Labs from last 24 hours 02/21/18 02/21/18 10:08 05:21 Lipase 389 CA 19-9 Antigen Cancelled Impressions ITS Impressions Abdomen/Pelvis CT 02/17/18 00:00 CONCLUSION: 1. Cirrhotic liver. 2. Changes of chronic pancreatitis. The acute changes. 2 largely resolved. Dictated the 2 cysts of the pancreas presumably related to pseudocysts. There is pancreatic duct dilatation. The ductal dilatation appears worse. Cholangiopancreatography MRI 02/18/18 14:13 CONCLUSION: 1. Cystic masses in the pancreas which demonstrate calcifications in addition to atrophic pancreas with dilated pancreatic duct sequelae of chronic pancreatitis. 2. No definite filling defects within common bile duct which does not appear to be dilated. Gallbladder Ultrasound 02/18/18 19:14 CONCLUSION: 1. Imaged portion of the pancreas is consistent with patient's history of chronic pancreatitis with a pseudocyst formation identified within the pancreatic head. The lesion identified within the distal pancreas is not visualized by ultrasound. 2. The liver appears heterogeneous in echotexture and demonstrates a somewhat nodular contour concerning for changes of cirrhosis. Small amount of free fluid identified adjacent to the right lobe of the liver. Discharge Plan Discharge Disposition Patient Disposition: 01 Discharge Home Discharge Condition Condition: Good Discharge Order Discharge Orders: Discharge Order (Routine); Ordered 02/21/18 Ordered By: Ashley Taylor Discharge Details Anticipated Discharge Date: 02/21/18 Physicians Team Primary Care Provider: Primary Care Bernie,Stefani Attending Provider: Ashley Taylor Other Providers: Analy,Analy ; Leno Dawn V Rxs /Orders / Referrals /Forms Prescriptions: Continue hydrocodone-acetaminophen 7.5-325 mg Tablet 1 tab PO Q4H PRN (Reason: Pain) RF: 0 thiamine HCl (vitamin B1) 100 mg Tablet 100 mg PO DAILY Qty: 30 RF: 0 folic acid 1 mg Tablet 1 mg PO DAILY Qty: 30 RF: 0 omeprazole 40 mg Capsule,Delayed Release(Dr/Ec) 40 mg PO DAILY RF: 0 albuterol sulfate [Ventolin HFA] 90 mcg/actuation Hfa Aerosol Inhaler 2 puff INHALATION Q4-6H PRN (Reason: Shortness Of Breath) RF: 0 famotidine 20 mg Tablet 20 mg PO BID RF: 0 [id number] [Creon] 3,000-9,500- 15,000 unit Capsule,Delayed Release(Dr/Ec) 3,000 units PO BID RF: 0 cyanocobalamin-cobamamide [B12] 5,000-100 mcg Lozenge 100 mcg Sublingual RF: 0 [id number]-dhkakhb [Creon] 3,000-9,500- 15,000 unit Capsule,Delayed Release(Dr/Ec) 2,600 units/day PO RF: 0 Referrals: Primary Care Stefani Gibbs [Primary Care Provider] - See Instructions (Follow up with [employer] PCP within 7-10 days. ) Jens Cross MD [Family Provider] - See Instructions (Follow up within 7-10 days. ) Discharge Instructions Additional Instructions: Your Health Problems: Goals to Promote Your Health: * To prevent worsening of your condition * To maintain your health at the optimal level Directions to Meet Your Goals: * Take your medications as prescribed * Follow your dietary instruction * Follow activity as directed * Keep your appointments as scheduled * Take your immunizations and boosters as scheduled * If your symptoms worsen call your PCP * If no PCP go to Urgent Care or Emergency Room Smoking is dangerous to your health. Avoid second hand smoke. You may reach the 24-hour crisis hotline for domestic abuse at . Status ED Status: Left Department Discharge Information Discharge Date/Time: 02/21/18 10:19
== END 2018-02-21 10:19 | disposition home or self-care (01) ==
LOC: NEPE 22:48 → NEDA 02-17 00:55 → N05 02-17 03:02
PROVIDERS: ADMIT Hospitalist; ATTEND Hospitalist
DX: B19.20 Unspecified viral hepatitis C without hepatic coma; K86.3 Pseudocyst of pancreas; F17.210 Nicotine dependence, cigarettes, uncomplicated; K74.60 Unspecified cirrhosis of liver; Z80.0 Family history of malignant neoplasm of digestive organs; K86.0 Alcohol-induced chronic pancreatitis; J44.9 Chronic obstructive pulmonary disease, unspecified; K85.20 Alcohol induced acute pancreatitis without necrosis or infection; F41.9 Anxiety disorder, unspecified; F10.20 Alcohol dependence, uncomplicated

== ENCOUNTER 2018-04-15 11:21 | Inpatient (IN) ==
[2018-04-15] MEDS ORDERED: Sod Chloride 0.9% Inj 1,000 ML IV.SIG ONE (11:40)
[2018-04-15] MEDS ORDERED: Morphine Inj 4 MG/ML Vial IV.PUSH ONE ×2 (11:40→13:37)
--- NOTE | 2018-04-15 11:44 | ED ---
HPI General Chief complaint: Abdominal Pain Stated complaint: abd pain complaint Time Seen by Provider: 04/15/18 11:38 History of Present Illness HPI narrative: This is a 63-year-old male with history of chronic pancreatitis, on Creon, cirrhosis, alcoholism, presents for evaluation of epigastric abdominal pain. He reports that he has chronic epigastric abdominal pain secondary to his pancreatitis, worse this morning, which prompted evaluation. Pain is sharp, constant. There is associated nausea. Denies vomiting. Constipation, dysuria, flank pain, chest pain, shortness of breath. Symptoms are moderate. His interrelated special education teacher is Dr. Gallegos. He reports that he last drank alcohol yesterday, 5 PM, 4-5 beers. No other complaints. Related Data Home Medications Medication Instructions Recorded Confirmed hydrocodone-acetaminophen 1 tab PO Q4H PRN 09/03/17 04/15/18 albuterol sulfate [Ventolin HFA] 2 puff INHALATION Q4-6H PRN 12/29/17 04/15/18 omeprazole 40 mg PO DAILY 12/29/17 04/15/18 mditdm-oclomjjg-wrbrlui [Creon] 3,000 units/day PO TIDAC 02/16/18 04/15/18 Allergies Allergy/AdvReac Type Severity Reaction Status Date / Time codeine AdvReac Mild SWEATS Verified 04/15/18 11:44 Review of Systems ROS: all other systems reviewed are negative [facility] Medical History Medical History Alcohol induced acute pancreatitis (Acute) COPD (chronic obstructive pulmonary disease) (Chronic) Colitis (Chronic) Fatty liver (Chronic) Hepatitis C (Chronic) History of cirrhosis of liver (Chronic) Pancreatitis (Chronic) Surgical History Surgical History Hx of colonoscopy (Chronic) Family History Family History Brother Colon cancer Father Family estrangement Mother Family estrangement Social History Social History Substance History: Active Abuse Second Hand Smoke Exposure: No Smoking Status: Current every day smoker Tobacco Type: Cigarettes Packs Per Day: 1.5 Cigarettes Per Day: 30.0 How Often Do You Have a Drink Containing Alcohol: 4 or more times a week Recent Travel in [facility] within the Last 8 Weeks: No Recent Out of Country Travel within the Last 8 Weeks: No Immunization History Tetanus Immunization Year if Known: 2016 Exam Narrative Exam Narrative: GENERAL: Well-developed well-nourished male who is in no acute distress. He is lying supine on his hospital bed. SKIN: Warm and dry. HEAD: Atraumatic. Normocephalic. EYES: Pupils equal and round. No scleral icterus. No injection or drainage. ENT: No nasal bleeding or discharge. Mucous membranes pink and moist. NECK: Trachea midline. No JVD. CARDIOVASCULAR: Regular rate and rhythm. No murmur appreciated. RESPIRATORY: No accessory muscle use. Clear to auscultation. Breath sounds equal bilaterally. GASTROINTESTINAL: Abdomen soft, there is focal tenderness to palpation in the epigastrium. No guarding. MUSCULOSKELETAL: No obvious deformities. No clubbing. No cyanosis. No edema. NEUROLOGICAL: Awake and alert. No obvious cranial nerve deficits. Motor grossly within normal limits. Normal speech. Course Initial Documented Vital Signs Temperature 97.8 F 04/15/18 11:32 Pulse Rate 74 04/15/18 11:32 Respiratory Rate 18 04/15/18 11:32 Blood Pressure 150/84 H 04/15/18 11:32 Pulse Oximetry 98 04/15/18 11:32 Last Documented Vital Signs Temperature 98.2 F 04/20/18 08:05 Pulse Rate 68 04/20/18 08:05 Respiratory Rate 17 04/20/18 08:05 Blood Pressure 144/86 H 04/20/18 08:05 Pulse Oximetry 98 04/20/18 08:05 Medical Decision Making MARISELA Attestation MARISELA supervised visit: Yes Attestation: I, Dr. Bernal, have reviewed the advance practice practitioner's documentation and am in agreement, met with the patient face to face, made the diagnosis, and the medical decision making was done by me. *My assessment and Findings: Recurrent pancreatitis MDM Narrative Medical decision making narrative: 63-year-old male with chronic pancreatitis presents with acutely worsening exacerbation of his chronic epigastric pain. Daily drinker. Hemodynamically stable. IV established, lab work obtained. The patient will be given IV fluids, morphine and Zofran. Upon reexamination the patient is feeling somewhat improved. His lipase is 7170 his CBC is unremarkable. His CMP is unremarkable. He will be admitted for further treatment of pancreatitis. Discussed with Dr. Pulliam who is agreeable with admission. Medical Screen Exam Complete: Yes Emergency Medical Condition: Yes Differential Diagnosis Differential Diagnosis: Pancreatitis, cholecystitis, pancreatic abscess, aortic dissection, acute coronary syndrome Lab Data Result diagrams: 04/16/18 06:53 04/17/18 05:55 Lab Results 04/15/18 04/15/18 04/15/18 Range/Units 11:49 11:49 15:52 WBC 10.7 (4.0-11.0) th/mm3 RBC 4.43 L (4.50-5.90) mil/mm3 Hgb 14.7 (13.0-17.0) gm/dL Hct 42.5 (39.0-51.0) % MCV 95.8 (80.0-100.0) fL MCH 33.2 (27.0-34.0) pg MCHC 34.6 (32.0-36.0) % RDW 13.8 (11.6-17.2) % Plt Count 244 (150-450) th/mm3 MPV 8.4 (7.0-11.0) fL Neut % (Auto) 79.4 H (16.0-70.0) % Lymph % (Auto) 13.5 (9.0-44.0) % [place] % (Auto) 5.5 (0.0-8.0) % Eos % (Auto) 0.9 (0.0-4.0) % Baso % (Auto) 0.7 (0.0-2.0) % Neut # (Auto) 8.5 H (1.8-7.7) th/mm3 Lymph # (Auto) 1.4 (1.0-4.8) th/mm3 [place] # (Auto) 0.6 (0.0-0.9) th/mm3 Eos # (Auto) 0.1 (0.0-0.4) th/mm3 Baso # (Auto) 0.1 (0.0-0.2) th/mm3 WBC Differential . Differential Comment Auto diff final Sodium 138 (136-145) meq/L Potassium 3.6 (3.5-5.1) meq/L Chloride 105 (98-107) meq/L Carbon Dioxide 24.4 (21.0-32.0) meq/L Anion Gap 9 (5-15) meq/L BUN 19 H (7-18) mg/dL Creatinine 0.90 (0.60-1.30) mg/dL Estimated GFR (>89) mL/min Random Glucose 100 (74-106) mg/dL Calcium 8.7 (8.5-10.1) mg/dL Magnesium 1.9 (1.5-2.5) mg/dL Total Bilirubin 0.5 (0.2-1.0) mg/dL AST 57 H (15-37) U/L ALT 50 (12-78) U/L Alkaline Phosphatase 89 (45-117) U/L Total Protein 8.0 (6.4-8.2) g/dL Albumin 4.1 (3.4-5.0) g/dL Lipase 7170 H (73-393) U/L Urine Color Yellow (Yellw/Straw) Urine Clarity Clear (Clear) Urine pH 5.0 (5.0-8.5) Ur Specific [place] 1.017 (1.002-1.035) Urine Protein Negative (Neg-Trace) mg/dL Urine Glucose (UA) Negative (Negative) mg/dL Urine Ketones Negative (Negative) mg/dL Urine Occult Blood Negative (Negative) Urine Nitrate Negative (Negative) Urine Bilirubin Negative (Negative) Urine Urobilinogen Less than 2 (Less than 2) mg/dL Ur Leukocyte Esterase Negative (Negative) Urine RBC Less than 1 (0-3) /hpf Urine WBC Less than 1 (0-5) /hpf Hyaline Casts 5 (0-3) /lpf Urine Mucus Few H (Occasional) /lpf Micro UA Comment Culture not ind Ur Microscopic Review Not Reportable Urine Culture Comments Culture not ind 04/16/18 04/16/18 04/17/18 Range/Units 06:53 06:53 05:55 WBC 8.1 (4.0-11.0) th/mm3 RBC 4.21 L (4.50-5.90) mil/mm3 Hgb 14.1 (13.0-17.0) gm/dL Hct 40.8 (39.0-51.0) % MCV 96.9 (80.0-100.0) fL MCH 33.4 (27.0-34.0) pg MCHC 34.5 (32.0-36.0) % RDW 13.7 (11.6-17.2) % Plt Count 209 (150-450) th/mm3 MPV 8.4 (7.0-11.0) fL Neut % (Auto) 75.2 H (16.0-70.0) % Lymph % (Auto) 15.0 (9.0-44.0) % [place] % (Auto) 7.5 (0.0-8.0) % Eos % (Auto) 1.5 (0.0-4.0) % Baso % (Auto) 0.8 (0.0-2.0) % Neut # (Auto) 6.1 (1.8-7.7) th/mm3 Lymph # (Auto) 1.2 (1.0-4.8) th/mm3 [place] # (Auto) 0.6 (0.0-0.9) th/mm3 Eos # (Auto) 0.1 (0.0-0.4) th/mm3 Baso # (Auto) 0.1 (0.0-0.2) th/mm3 WBC Differential . Differential Comment Auto diff final Sodium 140 142 (136-145) meq/L Potassium 3.4 L 3.5 (3.5-5.1) meq/L Chloride 109 H 109 H (98-107) meq/L Carbon Dioxide 22.8 25.9 (21.0-32.0) meq/L Anion Gap 8 7 (5-15) meq/L BUN 7 5 L (7-18) mg/dL Creatinine 0.61 0.52 L (0.60-1.30) mg/dL Estimated GFR Greater than 89 (>89) mL/min Random Glucose 90 92 (74-106) mg/dL Calcium 7.9 L D 8.1 L (8.5-10.1) mg/dL Magnesium (1.5-2.5) mg/dL Total Bilirubin (0.2-1.0) mg/dL AST (15-37) U/L ALT (12-78) U/L Alkaline Phosphatase (45-117) U/L Total Protein (6.4-8.2) g/dL Albumin (3.4-5.0) g/dL Lipase 4584 H 3598 H (73-393) U/L Urine Color (Yellw/Straw) Urine Clarity (Clear) Urine pH (5.0-8.5) Ur Specific [place] (1.002-1.035) Urine Protein (Neg-Trace) mg/dL Urine Glucose (UA) (Negative) mg/dL Urine Ketones (Negative) mg/dL Urine Occult Blood (Negative) Urine Nitrate (Negative) Urine Bilirubin (Negative) Urine Urobilinogen (Less than 2) mg/dL Ur Leukocyte Esterase (Negative) Urine RBC (0-3) /hpf Urine WBC (0-5) /hpf Hyaline Casts (0-3) /lpf Urine Mucus (Occasional) /lpf Micro UA Comment Ur Microscopic Review Urine Culture Comments 04/18/18 04/19/18 04/20/18 Range/Units 05:15 06:15 03:48 WBC (4.0-11.0) th/mm3 RBC (4.50-5.90) mil/mm3 Hgb (13.0-17.0) gm/dL Hct (39.0-51.0) % MCV (80.0-100.0) fL MCH (27.0-34.0) pg MCHC (32.0-36.0) % RDW (11.6-17.2) % Plt Count (150-450) th/mm3 MPV (7.0-11.0) fL Neut % (Auto) (16.0-70.0) % Lymph % (Auto) (9.0-44.0) % [place] % (Auto) (0.0-8.0) % Eos % (Auto) (0.0-4.0) % Baso % (Auto) (0.0-2.0) % Neut # (Auto) (1.8-7.7) th/mm3 Lymph # (Auto) (1.0-4.8) th/mm3 [place] # (Auto) (0.0-0.9) th/mm3 Eos # (Auto) (0.0-0.4) th/mm3 Baso # (Auto) (0.0-0.2) th/mm3 WBC Differential Differential Comment Sodium (136-145) meq/L Potassium (3.5-5.1) meq/L Chloride (98-107) meq/L Carbon Dioxide (21.0-32.0) meq/L Anion Gap (5-15) meq/L BUN (7-18) mg/dL Creatinine (0.60-1.30) mg/dL Estimated GFR (>89) mL/min Random Glucose (74-106) mg/dL Calcium (8.5-10.1) mg/dL Magnesium (1.5-2.5) mg/dL Total Bilirubin (0.2-1.0) mg/dL AST (15-37) U/L ALT (12-78) U/L Alkaline Phosphatase (45-117) U/L Total Protein (6.4-8.2) g/dL Albumin (3.4-5.0) g/dL Lipase 3274 H 2147 H 1767 H (73-393) U/L Urine Color (Yellw/Straw) Urine Clarity (Clear) Urine pH (5.0-8.5) Ur Specific [place] (1.002-1.035) Urine Protein (Neg-Trace) mg/dL Urine Glucose (UA) (Negative) mg/dL Urine Ketones (Negative) mg/dL Urine Occult Blood (Negative) Urine Nitrate (Negative) Urine Bilirubin (Negative) Urine Urobilinogen (Less than 2) mg/dL Ur Leukocyte Esterase (Negative) Urine RBC (0-3) /hpf Urine WBC (0-5) /hpf Hyaline Casts (0-3) /lpf Urine Mucus (Occasional) /lpf Micro UA Comment Ur Microscopic Review Urine Culture Comments Discharge Plan Discharge Disposition Patient Disposition: ED Admit(ED Internal Use Only) Discharge Condition Condition: Stable Discharge Order Discharge Orders: ED Use Only Admit Order (Routine); Ordered 04/15/18 Ordered By: Satnislaw Wolf Discharge Details Diagnosis: Acute on chronic pancreatitis Physicians Team ED Provider: Mike Bernal ED Midlevel Provider: Stanislaw Wolf Primary Care Provider: Deandre Ma Attending Provider: Esmer Murphy Other Providers: [employer] Status ED Status: Left Department Discharge Information Discharge Date/Time: 04/15/18 16:20
[2018-04-15 12:27] LABS: Baso # (Auto) 0.1 th/mm3 (0.0-0.2); Baso % (Auto) 0.7 % (0.0-2.0); Eos # (Auto) 0.1 th/mm3 (0.0-0.4); Eos % (Auto) 0.9 % (0.0-4.0); Hematocrit 42.5 % (39.0-51.0); Hemoglobin 14.7 gm/dL (13.0-17.0); Lymph # (Auto) 1.4 th/mm3 (1.0-4.8); Lymph % (Auto) 13.5 % (9.0-44.0); Mean Corpuscular HGB Conc 34.6 % (32.0-36.0); Mean Corpuscular Hemoglobin 33.2 pg (27.0-34.0); Mean Corpuscular Volume 95.8 fL (80.0-100.0); Mean Platelet Volume 8.4 fL (7.0-11.0); Mono # (Auto) 0.6 th/mm3 (0.0-0.9); Mono % (Auto) 5.5 % (0.0-8.0); Neut # (Auto) 8.5 th/mm3 (1.8-7.7); Neut % (Auto) 79.4 % (16.0-70.0); Platelet Count 244 th/mm3 (150-450); Red Blood Count 4.43 mil/mm3 (4.50-5.90); Red Cell Distribution Width 13.8 % (11.6-17.2); White Blood Count 10.7 th/mm3 (4.0-11.0)
[2018-04-15 12:53] LABS: Albumin 4.1 g/dL (3.4-5.0); Anion Gap 9 meq/L (5-15); Aspartate Aminotransferase 57 U/L (15-37); Blood Urea Nitrogen 19 mg/dL (7-18); Calcium 8.7 mg/dL (8.5-10.1); Carbon Dioxide 24.4 meq/L (21.0-32.0); Chloride 105 meq/L (98-107); Glucose,Random 100 mg/dL (74-106); Magnesium 1.9 mg/dL (1.5-2.5); Potassium 3.6 meq/L (3.5-5.1); Sodium 138 meq/L (136-145)
[2018-04-15 12:54] LABS: Alanine Aminotransferase 50 U/L (12-78)
[2018-04-15 12:57] LABS: Alkaline Phosphatase 89 U/L (45-117); Lipase 7170 U/L (73-393)
--- NOTE | 2018-04-15 13:37 | P.HPIM ---
History of Present Illness Service: This is a 63-year-old male with history of chronic pancreatitis, on Creon, cirrhosis, alcoholism, with multiple hospitalizations, presents for evaluation of epigastric abdominal pain. He reports that he has chronic epigastric abdominal pain secondary to his pancreatitis, worse this morning, which prompted evaluation. Pain is sharp, constant. There is associated nausea. Denies vomiting. Reports constipation, says lactulose is working for him very well. Denies dysuria, flank pain, chest pain, shortness of breath. Symptoms are moderate. His utilization management manager is Dr. Gallegos. He reports that he last drank alcohol yesterday, 5 PM, 4-5 beers. Patient says however he cut down on alcohol and he is drinking only in the morning. No other complaints. Primary Care Physician: Deandre Ma MD Review of Systems Review of Systems: all other systems reviewed are negative [facility] Medical History Medical History Alcohol induced acute pancreatitis (Acute) COPD (chronic obstructive pulmonary disease) (Chronic) Colitis (Chronic) Fatty liver (Chronic) Hepatitis C (Chronic) History of cirrhosis of liver (Chronic) Pancreatitis (Chronic) Surgical History Surgical History Hx of colonoscopy (Chronic) Family History Family History Brother Colon cancer Father Family estrangement Mother Family estrangement Social History Social History Substance History: No History of Abuse Second Hand Smoke Exposure: No Smoking Status: Current every day smoker Tobacco Type: Cigarettes Packs Per Day: 1.5 Cigarettes Per Day: 30.0 How Often Do You Have a Drink Containing Alcohol: 4 or more times a week Recent Travel in [facility] within the Last 8 Weeks: No Recent Out of Country Travel within the Last 8 Weeks: No Immunization History Tetanus Immunization: <5 Years Tetanus Immunization Year if Known: 2016 Medications and Allergies Allergies Allergy/AdvReac Type Severity Reaction Status Date / Time codeine AdvReac Mild SWEATS Verified 04/15/18 11:44 Home Medications Medication Instructions Recorded Confirmed Type hydrocodone-acetaminophen 1 tab PO Q4H PRN 09/03/17 04/15/18 History albuterol sulfate [Ventolin HFA] 2 puff INHALATION Q4-6H PRN 12/29/17 04/15/18 History omeprazole 40 mg PO DAILY 12/29/17 04/15/18 History igjxfb-xuvjxfnj-cenzjhm [Creon] 3,000 units/day PO TIDAC 02/16/18 04/15/18 History Active Medications: Active Medications Sodium Chloride (Ns Flush) 2 ml IV.FLUSH PRN PRN PRN Reason: FLUSH AFTER USING IV ACCESS Physical Exam Vital signs: Vital Signs 04/15/18 11:32 04/15/18 11:47 04/15/18 12:13 Temperature 97.8 F Pulse Rate 74 70 Respiratory Rate 18 19 15 Blood Pressure 150/84 H 190/94 H Pulse Oximetry 98 99 04/15/18 13:00 Temperature Pulse Rate 74 Respiratory Rate 16 Blood Pressure 177/95 H Pulse Oximetry 96 Intake & Output 04/14/18 04/15/18 04/15/18 18:59 06:59 18:59 Intake Total 1000 / 1000 Balance 1000 / 1000 Weight 58.967 kg Intake: IV 1000 / 1000 NS Inj 1,000 ML @ Wide Open IV. 1000 / 1000 SIG BOLUS ONE Rx#:[id number] Narrative: GENERAL: Pleasant 63-year-old male, cachectic, appears in pain. SKIN: Warm and dry. HEAD: Atraumatic. Normocephalic. EYES: Pupils equal and round. No scleral icterus. No injection or drainage. ENT: No nasal bleeding or discharge. Mucous membranes pink and moist. NECK: Trachea midline. No JVD. CARDIOVASCULAR: Regular rate and rhythm. RESPIRATORY: No accessory muscle use. Clear to auscultation. Breath sounds equal bilaterally. GASTROINTESTINAL: Abdomen soft, epigastric tenderness to palpation, mildly distended. No guarding. MUSCULOSKELETAL: Extremities without clubbing, cyanosis, or edema. No obvious deformities. NEUROLOGICAL: Awake and alert. No obvious cranial nerve deficits. Motor grossly within normal limits. Five out of 5 muscle strength in the arms and legs. Normal speech. PSYCHIATRIC: Appropriate mood and affect; insight and judgment normal. Results Labs CBC & Chem 7: 04/15/18 11:49 04/15/18 11:49 Caprini VTE Risk Assessment Caprini VTE Risk Assessment: No/Low Risk (score <= 1) Caprini Risk Assessment Model: Point Value = 1 Point Value = 2 Point Value = 3 Point Value = 5 Age 41-60 Minor surgery BMI > 25 kg/m2 Swollen legs Varicose veins or History of unexplained or recurrent spontaneous Oral contraceptives or hormone replacement Sepsis (< 1 month) Serious lung disease, including pneumonia (< 1 month) Abnormal pulmonary function Acute myocardial infarction Congestive heart failure (< 1 month) History of inflammatory bowel disease Medical patient at bed rest Age 61-74 Arthroscopic surgery Major open surgery (> 45 min) Laparoscopic surgery (> 45 min) Malignancy Confined to bed (> 72 hours) Immobilizing plaster cast Central venous access Age >= 75 History of VTE Family history of VTE Factor V Leiden Prothrombin [id number] Lupus anticoagulant Anticardiolipin antibodies Elevated serum homocysteine Heparin-induced thrombocytopenia Other congenital or acquired thrombophilia Stroke (< 1 month) Elective arthroplasty Hip, pelvis, or leg fracture Acute spinal cord injury (< 1 month) Prophylaxis Regimen: Total Risk Factor Score Risk Level Prophylaxis Regimen 0-1 Low Early ambulation 2 Moderate Order ONE of the following: *Sequential Compression Device (SCD) *Heparin 5000 units SQ BID 3-4 Higher Order ONE of the following medications: *Heparin 5000 units SQ TID *Enoxaparin/Lovenox 40 mg SQ daily (WT < 150 kg, CrCl > 30 mL/min) *Enoxaparin/Lovenox 30 mg SQ daily (WT < 150 kg, CrCl > 10-29 mL/min) *Enoxaparin/Lovenox 30 mg SQ BID (WT < 150 kg, CrCl > 30 mL/min) AND/OR *Sequential Compression Device (SCD) 5 or more Highest Order ONE of the following medications: *Heparin 5000 units SQ TID (Preferred with Epidurals) *Enoxaparin/Lovenox 40 mg SQ daily (WT < 150 kg, CrCl > 30 mL/min) *Enoxaparin/Lovenox 30 mg SQ daily (WT < 150 kg, CrCl > 10-29 mL/min) *Enoxaparin/Lovenox 30 mg SQ BID (WT < 150 kg, CrCl > 30 mL/min) AND *Sequential Compression Device (SCD) Assessment and Plan Plan 63-year-old male with Acute on chronic pancreatitis Nausea History of hepatitis C chronic History of liver cirrhosis chronic Fatty liver chronic Alcoholism Lipase on admission more than 7000 Monitor lipase N.p.o. for now, IV fluids normal saline at 150 cc/h Pain medications morphine IV, restart home Percocet if able to take p.o. Zofran as needed for nausea Bowel regimen Ativan as needed, monitor closely for alcohol withdrawals COPD without exacerbation continue home medications DVT prophylaxis ambulation SCD/teds Discussed Condition With: Patient, ER physician/PA
[2018-04-15] MEDS ORDERED: Morphine Inj 4 MG/ML Vial IV.PUSH PRN (13:40)
[2018-04-15] MEDS: Sod Chloride 0.9% Inj 1,000 ML IV.CONT SCH (14:36)
[2018-04-15] MEDS: Pantoprazole Inj 40 MG Vial IV.PUSH SCH (15:50)
[2018-04-15 16:52] LABS: Bilirubin,Urine Negative (Negative); Clarity,Urine Clear (Clear); Color,Urine Yellow (Yellw/Straw); Glucose,Urine (UA) Negative (Negative); Hyaline Casts,Urine 5 /lpf (0-3); Leukocyte Esterase,Urine Negative (Negative); Mucus,Urine Few /lpf (Occasional); Nitrite,Urine Negative (Negative); Specific Gravity,Urine 1.017 (1.002-1.035)
[2018-04-15] MEDS: [UNRECOGNIZED DRUG - REMARK] PO SCH (17:47)
[2018-04-15] MEDS: Morphine Sulfate Inj 2 MG/ML Vial IV.PUSH PRN (17:47)
[2018-04-15] MEDS: Senna/Docusate Sodium 8.6/50 MG Tablet PO SCH (20:33)
[2018-04-16] MEDS: Morphine Sulfate Inj 2 MG/ML Vial IV.PUSH PRN ×4 (00:24→15:34)
[2018-04-16] MEDS: Sod Chloride 0.9% Inj 1,000 ML IV.CONT SCH ×5 (00:27→16:49)
[2018-04-16 08:31] LABS: Baso # (Auto) 0.1 th/mm3 (0.0-0.2); Baso % (Auto) 0.8 % (0.0-2.0); Eos # (Auto) 0.1 th/mm3 (0.0-0.4); Eos % (Auto) 1.5 % (0.0-4.0); Hematocrit 40.8 % (39.0-51.0); Hemoglobin 14.1 gm/dL (13.0-17.0); Lymph # (Auto) 1.2 th/mm3 (1.0-4.8); Mean Corpuscular HGB Conc 34.5 % (32.0-36.0); Mean Corpuscular Hemoglobin 33.4 pg (27.0-34.0); Mean Corpuscular Volume 96.9 fL (80.0-100.0); Mean Platelet Volume 8.4 fL (7.0-11.0); Mono # (Auto) 0.6 th/mm3 (0.0-0.9); Mono % (Auto) 7.5 % (0.0-8.0); Neut # (Auto) 6.1 th/mm3 (1.8-7.7); Neut % (Auto) 75.2 % (16.0-70.0); Platelet Count 209 th/mm3 (150-450); Red Blood Count 4.21 mil/mm3 (4.50-5.90); Red Cell Distribution Width 13.7 % (11.6-17.2); White Blood Count 8.1 th/mm3 (4.0-11.0)
[2018-04-16 08:49] LABS: Anion Gap 8 meq/L (5-15); Blood Urea Nitrogen 7 mg/dL (7-18); Calcium 7.9 mg/dL (8.5-10.1); Carbon Dioxide 22.8 meq/L (21.0-32.0); Chloride 109 meq/L (98-107); Glomerular Filtration Rate Greater Than 89 mL/min (>89); Glucose,Random 90 mg/dL (74-106); Potassium 3.4 meq/L (3.5-5.1); Sodium 140 meq/L (136-145)
[2018-04-16 08:52] LABS: Lipase 4584 U/L (73-393)
[2018-04-16] MEDS: [UNRECOGNIZED DRUG - REMARK] PO SCH ×5 (10:00→16:49)
[2018-04-16] MEDS: Senna/Docusate Sodium 8.6/50 MG Tablet PO SCH ×2 (10:01→20:37)
[2018-04-16] MEDS ORDERED: LORazepam 1 MG Tablet PO PRN (10:12)
[2018-04-16] MEDS ORDERED: Haloperidol Inj 5 MG/ML Ampul IV.PUSH PRN (10:12)
--- NOTE | 2018-04-16 15:15 | P.PNIM ---
Subjective Interval history: Pancreatitis, constipation, elevated blood pressure, EtOH abuse: Patient seen and examined, he wants IV morphine. Has been refusing IV fluids overnight, tired of getting up to void in the middle of the night. Complaining of neck, back and abdominal pain. We discussed tapering down on narcotics as this is making constipation worse but he refuses. Blood pressure is noted elevated in the 180s, has been refusing Vasotec. He is now agreeable. Denies any chest pain, no shortness of breath. Nonproductive cough. Positive for tobacco abuse. No nausea, no vomiting. Physical Exam Vital signs: Vital Signs 04/15/18 18:18 04/15/18 20:13 04/15/18 23:45 Temperature 98 F 98.0 F 98.1 F Pulse Rate 70 75 74 Respiratory Rate 16 16 16 Blood Pressure 172/92 H 185/89 H 143/72 H Pulse Oximetry 95 95 95 04/16/18 08:00 04/16/18 12:00 Temperature 98 F 98.3 F Pulse Rate 69 76 Respiratory Rate 16 17 Blood Pressure 180/88 H 157/80 H Pulse Oximetry 96 96 Intake & Output 04/15/18 04/16/18 04/16/18 18:59 06:59 18:59 Intake Total 1000 / 1000 2120 / 2120 1000 / 1000 Output Total 300 / 300 Balance 700 / 700 212 / 2120 1000 / 1000 Weight 66 kg 66.1 kg Intake: IV 1000 / 1000 2000 / 2000 1000 / 1000 NS Inj 1,000 ML @ 150 mls/hr IV 1999 / 1999 1000 / 1000 .CONT .[id number] [facility] Rx#:[id number] NS Inj 1,000 ML @ Wide Open IV. 1000 / 1000 SIG BOLUS ONE Rx#:[id number] Oral 120 / 120 Output: Urine 300 / 300 Other: # Voids 2 Date of Last Bowel Movement 04/15/18 04/15/18 04/15/18 # Bowel Movements 1 0 Weight On Admission 66 kg Narrative: GENERAL: Well-developed 63-year-old male, thin built SKIN: Warm and dry. HEAD: Atraumatic. Normocephalic. EYES: Pupils equal and round. No scleral icterus. No injection or drainage. ENT: No nasal bleeding or discharge. Mucous membranes pink and moist. NECK: Trachea midline. No JVD. CARDIOVASCULAR: Regular rate and rhythm. RESPIRATORY: No accessory muscle use. Clear to auscultation. Breath sounds equal bilaterally. Non productive cough GASTROINTESTINAL: Abdomen distended, epigastric tenderness to palpation, normoactive bowel sounds times. No guarding. MUSCULOSKELETAL: Extremities without clubbing, cyanosis, or edema. No obvious deformities. NEUROLOGICAL: Awake and alert. No obvious cranial nerve deficits. Motor grossly within normal limits. Five out of 5 muscle strength in the arms and legs. Normal speech. PSYCHIATRIC: Anxious, does not appear to have good insight into his medical problems. Results Labs CBC & Chem 7: 04/16/18 06:53 04/16/18 06:53 Assessment and Plan (1) Acute on chronic pancreatitis: Code(s): K85.90 - Acute pancreatitis without necrosis or infection, unspecified; K86.1 - Other chronic pancreatitis Status: Acute (2) Alcohol abuse: Code(s): F10.10 - Alcohol abuse, uncomplicated Status: Acute (3) Liver cirrhosis: Code(s): K74.60 - Unspecified cirrhosis of liver Status: Chronic (4) Non-compliance: Code(s): Z91.19 - Patient's noncompliance with other medical treatment and regimen Status: Acute Plan This is a 63-year-old male with history of chronic pancreatitis, on Creon, cirrhosis, alcoholism, with multiple hospitalizations, presents for evaluation of epigastric abdominal pain. He reports that he has chronic epigastric abdominal pain secondary to his pancreatitis, worse this morning, which prompted evaluation. Pain is sharp, constant. There is associated nausea. Denies vomiting. Reports constipation, says lactulose is working for him very well. Denies dysuria, flank pain, chest pain, shortness of breath. Symptoms are moderate. His slide developer is Dr. Gallegos. He reports that he last drank alcohol yesterday, 5 PM, 4-5 beers. Patient says however he cut down on alcohol and he is drinking only in the morning. Acute on chronic pancreatitis secpndary to ETOH abuse On creon Hx of pancreatic pseudocyst -Continue with IV fluids, decrease to 100 an hour. Patient has been noncompliant, overnight he refused IV fluids. -Lipase trending down, on admission 7170, today 4584 -We will start clear liquid diet Continue antiemetics as needed We will continue with morphine 4 mg IV every 4 as needed today and will wean off tomorrow. -Patient has been counseled about alcohol abuse EtOH abuse, last drink was Tuesday, typically drinks 5-6 beers a day. -We will start CIWA protocol -Monitor for withdrawal symptoms -Start folic acid and thiamine Constipation Endorses no BM for for 5 days Continue with lactulose, Dulcolax as needed, milk of mag as needed as well as senna as needed Elevated blood pressure, up to 180s. No history of hypertension -Continue Vasotec 2.5 mg IV every 6 as needed Chronic back and neck pain Patient on Percocet Continue with pain management History of hepatitis C chronic History of liver cirrhosis chronic Fatty liver chronic Alcoholism -LFTs normal Alcohol abuse counseling -Needs to follow-up as outpatient with gastroenterology Hypokalemia, potassium 3.4 Replace potassium COPD without exacerbation -Ventolin inhaler 2 puffs every 4 as needed Tobacco abuse -Approximately 15 minutes was spent counseling the patient is cessation techniques. Understands continuing to smoke could lead to stroke and , worsening of COPD. Benefits of stopping also presented to the patient. Patient verbalized desire to "give it a try" regarding smoking cessation and its benefits. -Nicotine patch recommended. DVT prophylaxis ambulation SCD/teds Follow labs in the morning Hopefully discharge as lipase continues to trend down, poss 1-2 days Code Status: Full code Discussed Condition With: RN, pt, CM Dr. Yunior Reyes Discharge Planning: Home in 1-2 days Progress Note: Quality VTE Deep Vein Thrombosis/Pulmonary Embolism Present on Admission: No _ (1) Liver cirrhosis Qualifiers: Hepatic cirrhosis type: alcoholic cirrhosis Ascites presence: unspecified Qualified Code(s): K70.30 - Alcoholic cirrhosis of liver without ascites
[2018-04-16] MEDS: Pantoprazole Inj 40 MG Vial IV.PUSH SCH (15:34)
[2018-04-16] MEDS: Folic Acid 1 MG Tablet PO SCH (15:35)
[2018-04-17] MEDS: Morphine Sulfate Inj 2 MG/ML Vial IV.PUSH PRN ×5 (00:20→21:10)
[2018-04-17 07:02] LABS: Anion Gap 7 meq/L (5-15); Blood Urea Nitrogen 5 mg/dL (7-18); Calcium 8.1 mg/dL (8.5-10.1); Carbon Dioxide 25.9 meq/L (21.0-32.0); Chloride 109 meq/L (98-107); Glucose,Random 92 mg/dL (74-106); Lipase 3598 U/L (73-393); Potassium 3.5 meq/L (3.5-5.1); Sodium 142 meq/L (136-145)
[2018-04-17] MEDS: Sod Chloride 0.9% Inj 1,000 ML IV.CONT SCH ×4 (09:22→22:48)
[2018-04-17] MEDS: Senna/Docusate Sodium 8.6/50 MG Tablet PO SCH ×2 (09:23→20:23)
[2018-04-17] MEDS: amLODIPine 5 MG Tablet PO SCH (09:23)
[2018-04-17] MEDS: Folic Acid 1 MG Tablet PO SCH (09:23)
[2018-04-17] MEDS: [UNRECOGNIZED DRUG - REMARK] PO SCH ×3 (09:23→17:25)
--- NOTE | 2018-04-17 10:17 | P.PNIM ---
Subjective Interval history: Follow up for Pancreatitis, constipation, elevated blood pressure, EtOH abuse: Patient seen and examined, less epigastric discomfort. Was able to have bowel movement. No nausea, no vomiting. Does not like clear liquid diet. No fever. No chest pain, no shortness of breath. Blood pressure has remained in the 170s 180s, this morning 146/83. Does not take any medications at home. Physical Exam Vital signs: Vital Signs 04/16/18 12:00 04/16/18 16:00 04/16/18 19:51 Temperature 98.3 F 98.4 F 99.1 F Pulse Rate 76 72 71 Respiratory Rate 17 16 16 Blood Pressure 157/80 H 171/88 H 178/92 H Pulse Oximetry 96 95 96 04/17/18 00:21 04/17/18 04:23 04/17/18 07:53 Temperature 98.4 F 98.7 F Pulse Rate 70 66 Respiratory Rate 16 17 14 Blood Pressure 181/89 H 133/79 Pulse Oximetry 95 97 04/17/18 08:00 Temperature 98.4 F Pulse Rate 65 Respiratory Rate 14 Blood Pressure 146/83 H Pulse Oximetry 96 Intake & Output 04/16/18 04/17/18 04/17/18 18:59 06:59 18:59 Intake Total 1000 / 1000 1320 / 1320 Balance 1000 / 1000 1320 / 1320 Weight 65.3 kg Intake: IV 1000 / 1000 NS Inj 1,000 ML @ 150 mls/hr IV 1000 / 1000 .CONT .Q6H40M [facility] Rx#:[id number] Oral 1320 / 1320 Other: # Voids 8 8 Date of Last Bowel Movement 04/15/18 04/16/18 04/16/18 # Bowel Movements 1 Narrative: GENERAL: Well-developed 63-year-old male, thin built SKIN: Warm and dry. HEAD: Atraumatic. Normocephalic. EYES: Pupils equal and round. No scleral icterus. No injection or drainage. ENT: No nasal bleeding or discharge. Mucous membranes pink and moist. NECK: Trachea midline. No JVD. CARDIOVASCULAR: Regular rate and rhythm. RESPIRATORY: No accessory muscle use. Clear to auscultation. Breath sounds equal bilaterally. Non productive cough GASTROINTESTINAL: Abdomen less distended, epigastric tenderness to palpation, normoactive bowel sounds times. No guarding. MUSCULOSKELETAL: Extremities without clubbing, cyanosis, or edema. No obvious deformities. NEUROLOGICAL: Awake and alert. No obvious cranial nerve deficits. Motor grossly within normal limits. Five out of 5 muscle strength in the arms and legs. Normal speech. PSYCHIATRIC: Cooperative, calm. Results Labs CBC & Chem 7: 04/16/18 06:53 04/17/18 05:55 Assessment and Plan (1) Acute on chronic pancreatitis: Code(s): K85.90 - Acute pancreatitis without necrosis or infection, unspecified; K86.1 - Other chronic pancreatitis Status: Acute (2) Alcohol abuse: Code(s): F10.10 - Alcohol abuse, uncomplicated Status: Acute (3) Liver cirrhosis: Code(s): K74.60 - Unspecified cirrhosis of liver Status: Chronic (4) Non-compliance: Code(s): Z91.19 - Patient's noncompliance with other medical treatment and regimen Status: Acute Plan This is a 63-year-old male with history of chronic pancreatitis, on Creon, cirrhosis, alcoholism, with multiple hospitalizations, presents for evaluation of epigastric abdominal pain. He reports that he has chronic epigastric abdominal pain secondary to his pancreatitis, worse this morning, which prompted evaluation. Pain is sharp, constant. There is associated nausea. Denies vomiting. Reports constipation, says lactulose is working for him very well. Denies dysuria, flank pain, chest pain, shortness of breath. Symptoms are moderate. His cap parts cutter is Dr. Gallegos. He reports that he last drank alcohol yesterday, 5 PM, 4-5 beers. Patient says however he cut down on alcohol and he is drinking only in the morning. Acute on chronic pancreatitis secpndary to ETOH abuse On creon Hx of pancreatic pseudocyst -Continue with IV fluids,100 an hour. -Lipase trending down, on admission [id number] -Continue clear liquid diet Continue antiemetics as needed Change morphine to 2 mg IV every 6 as needed, continue to wean off. -Patient has been counseled about alcohol abuse -has been refusing Creon, despite being counseled EtOH abuse, last drink was Tuesday, typically drinks 5-6 beers a day. -[facility] protocol -Monitor for withdrawal symptoms -Continue folic acid and thiamine Constipation-resolved Endorses no BM for for 5 days Continue with lactulose, Dulcolax as needed, milk of mag as needed as well as senna as needed -had BM yesterday, continue to monitor Elevated blood pressure, up to 180s. No history of hypertension -Continue Vasotec 2.5 mg IV every 6 as needed -BP reviewed, mostly remaining in 170s- 180s, will add Norvasc 5 mg po daily. D/ W pt. States his BP is always ok at home. Reviewed previous admissions, BP 140s to 170s. He is agreeable with taking Norvasc. Chronic back and neck pain Patient on Percocet Continue with pain management History of hepatitis C chronic History of liver cirrhosis chronic Fatty liver chronic Alcoholism -LFTs normal Alcohol abuse counseling -Needs to follow-up as outpatient with gastroenterology Hypokalemia, potassium 3.5 Replace potassium COPD without exacerbation -Ventolin inhaler 2 puffs every 4 as needed Tobacco abuse -Approximately 15 minutes was spent counseling the patient is cessation techniques. Understands continuing to smoke could lead to stroke and , worsening of COPD. Benefits of stopping also presented to the patient. Patient verbalized desire to "give it a try" regarding smoking cessation and its benefits. -Nicotine patch recommended. DVT prophylaxis ambulation SCD/teds Lipase improving Hopefully we can discharge home if it continues to trend down Code Status: Full code Discussed Condition With: RN, pt, CM Dr. Reyes Discharge Planning: Home in 1-2 days Progress Note: Quality VTE Deep Vein Thrombosis/Pulmonary Embolism Present on Admission: No _ (1) Liver cirrhosis Qualifiers: Ascites presence: unspecified Hepatic cirrhosis type: alcoholic cirrhosis Qualified Code(s): K70.30 - Alcoholic cirrhosis of liver without ascites
[2018-04-17] MEDS: Pantoprazole Inj 40 MG Vial IV.PUSH SCH (15:14)
[2018-04-18] MEDS: Morphine Sulfate Inj 2 MG/ML Vial IV.PUSH PRN ×4 (03:27→21:46)
[2018-04-18] MEDS: Sod Chloride 0.9% Inj 1,000 ML IV.CONT SCH ×3 (03:28→19:10)
[2018-04-18] MEDS: amLODIPine 5 MG Tablet PO SCH (09:01)
[2018-04-18] MEDS: Folic Acid 1 MG Tablet PO SCH (09:01)
[2018-04-18] MEDS: [UNRECOGNIZED DRUG - REMARK] PO SCH ×3 (09:01→17:35)
[2018-04-18] MEDS: Senna/Docusate Sodium 8.6/50 MG Tablet PO SCH ×2 (09:02→20:53)
[2018-04-18] MEDS: Pantoprazole Inj 40 MG Vial IV.PUSH SCH (14:33)
--- NOTE | 2018-04-18 15:29 | P.PNIM ---
Subjective Interval history: Patient is seen lying in bed. He continues to complain of abdominal pain. He is very unhappy about the amount of pain medication he is being given. Says he is not getting enough. Patient tells me he normally gets [place] 7.5 4 times daily from his chronic pain management; says he is getting less than that here however this is contradicted by orders which indicates he is getting [place] 7.5 every 4hr as well as morphine. He is also unhappy with being on a clear liquid diet but also tells me he does not think he could tolerate any real food. Denies any nausea or vomiting. Denies fever or chills. No chest pain or shortness of breath. Physical Exam Vital signs: Vital Signs 04/17/18 16:00 04/17/18 20:10 04/18/18 00:00 Temperature 98.0 F 98.4 F 97.7 F Pulse Rate 71 64 64 Respiratory Rate 14 18 18 Blood Pressure 170/80 H 181/91 H 172/84 H Pulse Oximetry 96 98 97 04/18/18 04:00 04/18/18 08:00 04/18/18 11:48 Temperature 98.2 F 98.3 F 98.2 F Pulse Rate 67 62 67 Respiratory Rate 18 17 16 Blood Pressure 159/80 H 169/79 H 174/86 H Pulse Oximetry 97 97 98 Intake & Output 04/17/18 04/18/18 04/18/18 18:59 06:59 18:59 Intake Total 1720 / 1720 2187 / 2187 1000 / 1000 Output Total 2 / 2 Balance 1718 / 1718 2187 / 2187 1000 / 1000 Weight 66 kg Intake: IV 1000 / 1000 1946 1000 / 1000 NS Inj 1,000 ML @ 100 mls/hr IV 1000 / 1000 1946 1000 / 1000 .CONT .Q10H [facility] Rx#:[id number] Oral 720 / 720 240 / 240 Output: Urine 2 / 2 Other: # Voids 8 Date of Last Bowel Movement 04/16/18 04/16/18 04/16/18 # Bowel Movements 0 Narrative: GENERAL: Well-nourished, well-developed adult male in no obvious distress. SKIN: Focused assessment: Warm and dry. HEAD: Atraumatic. Normocephalic. CARDIOVASCULAR: Regular rate and rhythm. RESPIRATORY: No accessory muscle use. Clear to auscultation. Breath sounds equal bilaterally. GASTROINTESTINAL: Abdomen mildly distended. Tenderness through epigastric area and right upper quadrant. Positive bowel sounds. MUSCULOSKELETAL: Extremities without clubbing, cyanosis, or edema. No obvious deformities. NEUROLOGICAL: Awake and alert. No obvious cranial nerve deficits. Motor grossly within normal limits. Normal speech. Results Labs CBC & Chem 7: 04/16/18 06:53 04/17/18 05:55 Assessment and Plan (1) Acute on chronic pancreatitis: Code(s): K85.90 - Acute pancreatitis without necrosis or infection, unspecified; K86.1 - Other chronic pancreatitis Status: Acute (2) Alcohol abuse: Code(s): F10.10 - Alcohol abuse, uncomplicated Status: Acute (3) Liver cirrhosis: Code(s): K74.60 - Unspecified cirrhosis of liver Status: Chronic (4) Non-compliance: Code(s): Z91.19 - Patient's noncompliance with other medical treatment and regimen Status: Acute Plan This is a 63-year-old male with history of chronic pancreatitis, on Creon, cirrhosis, alcoholism, with multiple hospitalizations, presents for evaluation of epigastric abdominal pain. He reports that he has chronic epigastric abdominal pain secondary to his pancreatitis, worse this morning, which prompted evaluation. His director compliance is Dr. Gallegos. He reports that he last drank alcohol yesterday, 5 PM, 4-5 beers. Patient says however he cut down on alcohol and he is drinking only in the morning. Continues to smoke daily. Acute on chronic pancreatitis secpndary to ETOH abuse On creon Hx of pancreatic pseudocyst -Continue with IV fluids,100 an hour. -Lipase trending down, on admission [id number] -Continue clear liquid diet Continue antiemetics as needed Change morphine to 2 mg IV every 6 as needed, continue to wean off. -Patient has been counseled about alcohol abuse -has been refusing Creon, despite being counseled EtOH abuse, last drink was Tuesday, typically drinks 5-6 beers a day. -[facility] protocol -Monitor for withdrawal symptoms -Continue folic acid and thiamine Constipation-resolved Endorses no BM for for 5 days Continue with lactulose, Dulcolax as needed, milk of mag as needed as well as senna as needed -had BM yesterday, continue to monitor Elevated blood pressure, up to 180s. No history of hypertension -Continue Vasotec 2.5 mg IV every 6 as needed -BP reviewed, mostly remaining in 170s- 180s, will add Norvasc 5 mg po daily. D/ W pt. States his BP is always ok at home. Reviewed previous admissions, BP 140s to 170s. He is agreeable with taking Norvasc. Chronic back and neck pain Patient on Percocet - 7.5mg QID Continue with pain management; will increase dose to Q4 due to new acute pain History of hepatitis C chronic History of liver cirrhosis chronic Fatty liver chronic Alcoholism -LFTs normal Alcohol abuse counseling -Needs to follow-up as outpatient with gastroenterology Hypokalemia Monitor and replace as indicated COPD without exacerbation -Ventolin inhaler 2 puffs every 4 as needed Tobacco abuse -Continue to encourage cessation; patient is aware that this contributes significantly to his frequent pancreatitis -Nicotine patch recommended. DVT prophylaxis ambulation SCD/teds Code Status: Full code Discharge Planning: Home when tolerating regular diet Progress Note: Quality VTE Deep Vein Thrombosis/Pulmonary Embolism Present on Admission: No _ (1) Liver cirrhosis Qualifiers: Hepatic cirrhosis type: alcoholic cirrhosis Ascites presence: unspecified Qualified Code(s): K70.30 - Alcoholic cirrhosis of liver without ascites
[2018-04-19] MEDS: Sod Chloride 0.9% Inj 1,000 ML IV.CONT SCH ×3 (00:30→14:33)
[2018-04-19] MEDS: Morphine Sulfate Inj 2 MG/ML Vial IV.PUSH PRN ×5 (04:14→22:37)
[2018-04-19] MEDS ORDERED: Naloxone Inj 0.4 MG/ML Vial IV.PUSH PRN (09:08)
[2018-04-19] MEDS: Folic Acid 1 MG Tablet PO SCH (09:49)
[2018-04-19] MEDS: amLODIPine 5 MG Tablet PO SCH (09:49)
[2018-04-19] MEDS: Senna/Docusate Sodium 8.6/50 MG Tablet PO SCH ×2 (09:50→20:24)
[2018-04-19] MEDS: [UNRECOGNIZED DRUG - REMARK] PO SCH ×3 (09:57→17:07)
[2018-04-19] MEDS: Pantoprazole Inj 40 MG Vial IV.PUSH SCH (14:28)
--- NOTE | 2018-04-19 14:30 | P.PNIM ---
Subjective Interval history: Patient seen in room. He is also noted to be ambulating the halls. Tells me that he is hungry today and would like to advance his diet. Has not had any nausea or vomiting. Continues to have some pain. Physical Exam Vital signs: Vital Signs 04/18/18 16:00 04/18/18 20:00 04/18/18 23:50 Temperature 98.6 F 98.5 F 98.5 F Pulse Rate 70 70 72 Respiratory Rate 14 18 18 Blood Pressure 166/74 H 170/87 H 174/89 H Pulse Oximetry 99 99 97 04/19/18 01:30 04/19/18 08:00 04/19/18 12:00 Temperature 98.2 F 98.1 F Pulse Rate 66 65 Respiratory Rate 18 18 Blood Pressure 162/88 H 173/86 H 169/80 H Pulse Oximetry 98 98 Intake & Output 04/18/18 04/19/18 04/19/18 18:59 06:59 18:59 Intake Total 2520 / 2520 480 / 480 Balance 2520 / 2520 480 / 480 Weight 64.7 kg Intake: IV 1999 NS Inj 1,000 ML @ 100 mls/hr IV 1999 .CONT .Q10H [facility] Rx#:[id number] Oral 520 / 520 480 / 480 Other: # Voids 3 5 Date of Last Bowel Movement 04/16/18 04/16/18 # Bowel Movements 0 Narrative: GENERAL: Well-nourished, well-developed adult male in no obvious distress. SKIN: Focused assessment: Warm and dry. HEAD: Atraumatic. Normocephalic. CARDIOVASCULAR: Regular rate and rhythm. RESPIRATORY: No accessory muscle use. Clear to auscultation. Breath sounds equal bilaterally. GASTROINTESTINAL: Abdomen mildly distended. Tenderness through epigastric area and right upper quadrant. Positive bowel sounds. MUSCULOSKELETAL: Extremities without clubbing, cyanosis, or edema. No obvious deformities. NEUROLOGICAL: Awake and alert. No obvious cranial nerve deficits. Motor grossly within normal limits. Normal speech. Results Labs CBC & Chem 7: 04/16/18 06:53 04/17/18 05:55 Assessment and Plan (1) Acute on chronic pancreatitis: Code(s): K85.90 - Acute pancreatitis without necrosis or infection, unspecified; K86.1 - Other chronic pancreatitis Status: Acute (2) Alcohol abuse: Code(s): F10.10 - Alcohol abuse, uncomplicated Status: Acute (3) Liver cirrhosis: Code(s): K74.60 - Unspecified cirrhosis of liver Status: Chronic (4) Non-compliance: Code(s): Z91.19 - Patient's noncompliance with other medical treatment and regimen Status: Acute Plan This is a 63-year-old male with history of chronic pancreatitis, on Creon, cirrhosis, alcoholism, with multiple hospitalizations, presents for evaluation of epigastric abdominal pain. He reports that he has chronic epigastric abdominal pain secondary to his pancreatitis, worse this morning, which prompted evaluation. His menhaden vessel pilot is Dr. Gallegos. He reports that he last drank alcohol yesterday, 5 PM, 4-5 beers. Patient says however he cut down on alcohol and he is drinking only in the morning. Continues to smoke daily. Acute on chronic pancreatitis secpndary to ETOH abuse On creon Hx of pancreatic pseudocyst -Continue with IV fluids,100 an hour. Stopped 04/19 -patient able to take adequate p.o. -Lipase trending down, on admission [id number] -Advance diet as tolerated Continue antiemetics as needed continue to wean pain meds -has been refusing Creon, despite being counseled EtOH abuse, last drink was Tuesday, typically drinks 5-6 beers a day. -[facility] protocol -Monitor for withdrawal symptoms -Continue folic acid and thiamine -Patient has been counseled about alcohol abuse Constipation-resolved Endorses no BM for for 5 days Continue with lactulose, Dulcolax as needed, milk of mag as needed as well as senna as needed -had BM yesterday, continue to monitor Elevated blood pressure, up to 180s. No history of hypertension -Continue Vasotec 2.5 mg IV every 6 as needed -BP reviewed, mostly remaining in 170s- 180s, will add Norvasc 5 mg po daily. D/ W pt. States his BP is always ok at home. Reviewed previous admissions, BP 140s to 170s. He is agreeable with taking Norvasc. Consider the pain and agitation might be increasing baseline blood pressure. Chronic back and neck pain Patient on Percocet - 7.5mg QID Continue with pain management; will increase dose to Q4 due to new acute pain History of hepatitis C chronic History of liver cirrhosis chronic Fatty liver chronic Alcoholism -LFTs normal Alcohol abuse counseling -Needs to follow-up as outpatient with gastroenterology Hypokalemia Monitor and replace as indicated COPD without exacerbation -Ventolin inhaler 2 puffs every 4 as needed Tobacco abuse -Continue to encourage cessation; patient is aware that this contributes significantly to his frequent pancreatitis -Nicotine patch recommended. DVT prophylaxis ambulation SCD/teds Code Status: Full code Discharge Planning: Home when tolerating regular diet Progress Note: Quality VTE Deep Vein Thrombosis/Pulmonary Embolism Present on Admission: No _ (1) Liver cirrhosis Qualifiers: Hepatic cirrhosis type: alcoholic cirrhosis Ascites presence: unspecified Qualified Code(s): K70.30 - Alcoholic cirrhosis of liver without ascites
[2018-04-20] MEDS: Morphine Sulfate Inj 2 MG/ML Vial IV.PUSH PRN ×4 (02:31→17:26)
[2018-04-20] MEDS: Senna/Docusate Sodium 8.6/50 MG Tablet PO SCH ×2 (09:39→20:15)
[2018-04-20] MEDS: amLODIPine 5 MG Tablet PO SCH (09:39)
[2018-04-20] MEDS: Folic Acid 1 MG Tablet PO SCH (09:39)
[2018-04-20] MEDS: [UNRECOGNIZED DRUG - REMARK] PO SCH ×3 (09:39→16:24)
--- NOTE | 2018-04-20 15:15 | P.PNIM ---
Subjective Interval history: Patient is seen lying in bed. He tells me he is tolerating regular diet. Continues to complain of pain. Explained to him that his pain should be resolving with regular food and with decreasing lipase -offered additional investigation of his pain but he does not wish to do this. There is significant for concern for drug-seeking behavior. Physical Exam Vital signs: Vital Signs 04/19/18 16:00 04/19/18 19:16 04/19/18 23:29 Temperature 97.9 F 97.8 F 98.0 F Pulse Rate 73 64 71 Respiratory Rate 18 18 18 Blood Pressure 174/82 H 179/84 H 159/83 H Pulse Oximetry 97 97 97 04/20/18 04:30 04/20/18 08:05 04/20/18 11:29 Temperature 98.0 F 98.2 F 98.1 F Pulse Rate 65 68 75 Respiratory Rate 18 17 18 Blood Pressure 142/74 H 144/86 H 169/85 H Pulse Oximetry 97 98 96 Intake & Output 04/19/18 04/20/18 04/20/18 18:59 06:59 18:59 Intake Total 1000 / 1000 360 / 360 Balance 1000 / 1000 360 / 360 Weight 63.9 kg Intake: IV 1000 / 1000 NS Inj 1,000 ML @ 100 mls/hr IV 1000 / 1000 .CONT .Q10H [facility] Rx#:[id number] Oral 360 / 360 Other: # Voids 5 4 Date of Last Bowel Movement 04/18/18 04/20/18 # Bowel Movements 0 Narrative: GENERAL: Well-nourished, well-developed adult male in no obvious distress. SKIN: Focused assessment: Warm and dry. HEAD: Atraumatic. Normocephalic. CARDIOVASCULAR: Regular rate and rhythm. RESPIRATORY: No accessory muscle use. Clear to auscultation. Breath sounds equal bilaterally. GASTROINTESTINAL: Abdomen mildly distended. Tenderness through epigastric area and right upper quadrant. Positive bowel sounds. MUSCULOSKELETAL: Extremities without clubbing, cyanosis, or edema. No obvious deformities. NEUROLOGICAL: Awake and alert. No obvious cranial nerve deficits. Motor grossly within normal limits. Normal speech. Results Labs CBC & Chem 7: 04/16/18 06:53 04/17/18 05:55 Assessment and Plan (1) Acute on chronic pancreatitis: Code(s): K85.90 - Acute pancreatitis without necrosis or infection, unspecified; K86.1 - Other chronic pancreatitis Status: Acute (2) Alcohol abuse: Code(s): F10.10 - Alcohol abuse, uncomplicated Status: Acute (3) Liver cirrhosis: Code(s): K74.60 - Unspecified cirrhosis of liver Status: Chronic (4) Non-compliance: Code(s): Z91.19 - Patient's noncompliance with other medical treatment and regimen Status: Acute Plan This is a 63-year-old male with history of chronic pancreatitis, on Creon, cirrhosis, alcoholism, with multiple hospitalizations, presents for evaluation of epigastric abdominal pain. He reports that he has chronic epigastric abdominal pain secondary to his pancreatitis, worse this morning, which prompted evaluation. His administrative asst is Dr. Gallegos. He reports that he last drank alcohol yesterday, 5 PM, 4-5 beers. Patient says however he cut down on alcohol and he is drinking only in the morning. Continues to smoke daily. Acute on chronic pancreatitis secpndary to ETOH abuse On creon Hx of pancreatic pseudocyst -Continue with IV fluids,100 an hour. Stopped 04/19 -patient able to take adequate p.o. -Lipase trending down, on admission [id number] -tolerating normal diet Continue antiemetics as needed continue to wean pain meds -Now taking Creon as ordered; initially refused despite counseling. EtOH abuse, last drink was Tuesday, typically drinks 5-6 beers a day. -[facility] protocol -Monitor for withdrawal symptoms -Continue folic acid and thiamine -Patient has been counseled about alcohol abuse Constipation-resolved Endorses no BM for for 5 days Continue with lactulose, Dulcolax as needed, milk of mag as needed as well as senna as needed -had BM yesterday, continue to monitor Elevated blood pressure, up to 180s. No history of hypertension -Continue Vasotec 2.5 mg IV every 6 as needed -BP reviewed, mostly remaining in 170s- 180s, will add Norvasc 5 mg po daily. D/ W pt. States his BP is always ok at home. Reviewed previous admissions, BP 140s to 170s. He is agreeable with taking Norvasc. Consider the pain and agitation might be increasing baseline blood pressure. Chronic back and neck pain Patient on Percocet - 7.5mg QID Continue with pain management; will increase dose to Q4 due to new acute pain History of hepatitis C chronic History of liver cirrhosis chronic Fatty liver chronic Alcoholism -LFTs normal Alcohol abuse counseling -Needs to follow-up as outpatient with gastroenterology Hypokalemia Monitor and replace as indicated COPD without exacerbation -Ventolin inhaler 2 puffs every 4 as needed Tobacco abuse -Continue to encourage cessation; patient is aware that this contributes significantly to his frequent pancreatitis -Nicotine patch recommended. DVT prophylaxis ambulation SCD/teds Code Status: Full code Discharge Planning: Home when tolerating regular diet and lipase significantly reduce Progress Note: Quality VTE Deep Vein Thrombosis/Pulmonary Embolism Present on Admission: No _ (1) Liver cirrhosis Qualifiers: Hepatic cirrhosis type: alcoholic cirrhosis Ascites presence: unspecified Qualified Code(s): K70.30 - Alcoholic cirrhosis of liver without ascites
[2018-04-21] MEDS: Morphine Sulfate Inj 2 MG/ML Vial IV.PUSH PRN ×5 (00:17→21:10)
[2018-04-21] MEDS: [UNRECOGNIZED DRUG - REMARK] PO SCH ×3 (08:34→17:08)
[2018-04-21] MEDS: Senna/Docusate Sodium 8.6/50 MG Tablet PO SCH ×2 (08:35→20:20)
[2018-04-21] MEDS: Folic Acid 1 MG Tablet PO SCH (08:35)
[2018-04-21] MEDS: amLODIPine 5 MG Tablet PO SCH (08:35)
--- NOTE | 2018-04-21 15:51 | MB ---
cc: Jillian Gallegos MD DATE: 04/21/2018 REASON FOR CONSULTATION: Pancreatitis. HISTORY OF PRESENT ILLNESS: This is a very pleasant 62-year-old gentleman, known to me from the office who has a longstanding history of hepatitis C, liver cirrhosis, vomim-pz-jermqtt pancreatitis with a history of pseudocyst. I saw him in the office for recurrent pancreatitis. He has cut down his alcoholic beverages to 1-2 per day. Continues to smoke tobacco, but has cut down overall. He has had multiple admissions to the hospital for recurrent pancreatitis. He came back to the hospital with again abdominal pain symptoms in the epigastric region associated with nausea, discomfort. Since the hospitalization, he has been appropriately treated with IV fluids, pain medications, and bowel rest. He has been slowly increasing his diet, but he continues to have waxing and waning abdominal discomfort. He has not had a bowel movement in 3-4 days. GI was consulted for further evaluation. PAST MEDICAL HISTORY: Tobacco use, alcohol use, liver cirrhosis, hepatitis C, recurrent acute pancreatitis, chronic calcific pancreatitis. PAST SURGICAL HISTORY: Oral surgery. FAMILY HISTORY: Brother with history of colon cancer. SOCIAL HISTORY: Drinks and smokes tobacco regularly. ALLERGIES TO MEDICINE: CODEINE. MEDICATIONS: Please see MAR for complete accurate list. REVIEW OF SYSTEMS: A 12-point review of system was obtained by me and showed it to be negative and noncontributory except for the above-mentioned in HPI. PHYSICAL EXAMINATION: VITAL SIGNS: 98.3, 79, 144/80. HEENT: Oral mucosa moist and pink. Extraocular muscles intact. Pupils are equal, round, and reactive to light. Poor dentition. NECK: No JVD noted. CARDIOVASCULAR: S1, S2 normal. Cardiomegaly normal. RESPIRATORY: Clear to auscultation bilaterally. ABDOMEN: Soft, minimal tender to palpation in the mid abdomen. Nondistended. No tenderness. No rebound appreciated. No periumbilical ecchymosis or flank ecchymosis. EXTREMITIES: No edema noted. NEUROLOGIC: Alert and oriented. No focal deficits. LYMPH NODE: No lymphadenopathy noted. GENITOURINARY: No CVA tenderness. LABORATORY DATA: WBC 8.1, hemoglobin 14.1, and platelet count of 209. Sodium 142, potassium 3.5, chloride 109, BUN 5, creatinine 0.52. Lipase 4584 on admission, down to 2260. ASSESSMENT: 1. Eemgh-zq-rpkphlk abdominal pain secondary to pkswk-fr-rhcmttl pancreatitis. 2. Pixwt-mx-nxccppb pancreatitis. 3. Constipation. 4. History of pseudocyst. RECOMMENDATIONS: 1. I had a long discussion with the primary team and the patient in regard to continued care. At this time, given his waxing and waning of pain and discomfort and his recurrent attacks, I do recommend further imaging which ideally includes an MRI of the abdomen with contrast to better evaluate the pancreatic pseudocyst as well as the dilated pancreatic duct that was previously noted to rule out any occult malignant process. 2. Continue to advance diet as tolerated. 3. Pain medications as necessary. At this time, I recommend switching off the IV pain medication to only oral pain medications, the medications that he will be discharged upon. Additionally, I have advised him that I will see him in the office and then get him scheduled. In fact, he is scheduled for an outpatient esophagogastroduodenoscopy with endoscopic ultrasound and evaluation of the pancreatic pseudocyst as well as a celiac plexus block on 05/03/2018. Therefore, I have advised him to keep his appointment for further treatment plan and pain control. Thank you for allowing me to participate in the care of the patient. We will follow along with you and make recommendations as per the patient's clinical course. Jillian Gallegos MD KRP/ts , 03:26 PM , 03:35 PM
[2018-04-21] MEDS ORDERED: Gadobutrol PF 7.5 MMOL/7.5 ML Vial (for RAD) IV.SIG ONE (17:33)
--- NOTE | 2018-04-21 18:18 | MR ---
EXAM DATE: 04/21/2018 5:46 PM EST AGE/SEX: 63 years / Male INDICATIONS: Abdominal pain. CLINICAL DATA: This is the patient's initial encounter. Patient reports that signs and symptoms have been present for 1 week and indicates a pain score of 6/10. MEDICAL/SURGICAL HISTORY: Cirrhosis. Pancreatitis. Hepatitis C. COPD None. COMPARISON: [facility] [place], 02/18/2018. [facility] [place] & PELVIS W CONTRAST, 03/04/2018 . . TECHNIQUE: Multiplanar, multisequence images of the abdomen were obtained prior to and following adm inistration of 6 ml Gadavist (gadobutrol) contrast as a single exam dose with dynamic multiphase tech nique. FINDINGS: Liver: The liver is homogeneous and normal in signal intensity. Parenchymal enhancement is normal wit h no focal abnormalities. There is no biliary ductal dilatation. Gallbladder: No gallstones seen. Spleen: The spleen is unremarkable. Pancreas: There is a persistent cystic mass seen in the pancreatic head region measuring 4.7 x 5.0 x 3.6 cm. This is clearly larger. It previously measuring approximately 2.4 cm in the greatest dimensio n. There does appear to be some heterogeneity within this likely related to some debris. There is a s maller stable cystic area seen anterior to the pancreatic body measuring 2.3 x 1.6 x 1.7 cm. This has some heterogeneity internally likely related to this is being complex. It is unchanged from the prio r examination. There is dilatation of pancreatic duct measuring 0.9 cm in diameter. There is atrophy of the pancreatic body and tail around the dilated pancreatic duct. The patient has calcifications in the pancreas seen at the uncinate process, pancreatic head and to lesser degree pancreatic body on t he prior CT examination. Edema is not seen around the pancreas. Adrenals: The adrenal glands appear normal. Kidneys: Both kidneys appear normal with symmetric nephrograms. There is cystic change seen at the ki dneys bilaterally. The largest cyst seen at the anterior inferior left kidney measuring 2.2 x 1.8 x 1 .8 cm. There is minimal perinephric stranding seen being more prominent on the left. This nonspecific . There is no hydronephrosis on either side. Retroperitoneum: The aorta is unremarkable. There are persistent mildly prominent lymph nodes seen in the left retroperitoneum measuring up to 1 cm in greatest dimension. These are unchanged. CONCLUSION: 1. Prominent cyst in the pancreatic head which has enlarged. The patient also continues to have a sm aller cysts seen anterior to the pancreatic body and dilatation the pancreatic duct. These are though t to be secondary to chronic pancreatitis. 2. Benign cystic change seen at the kidneys. 3. Nonspecific mildly prominent lymph nodes in the left retroperitoneum which are unchanged. Electronically signed by: Juan Manuel Chung MD Board Certified Radiologist 04/21/2018 6:16 PM EST
[2018-04-22] MEDS: Bisacodyl 10 MG Supp RECTAL PRN ×3 (01:10→23:39)
[2018-04-22] MEDS: Morphine Sulfate Inj 2 MG/ML Vial IV.PUSH PRN ×2 (02:14→10:31)
[2018-04-22] MEDS: [UNRECOGNIZED DRUG - REMARK] PO SCH ×3 (08:16→16:42)
[2018-04-22] MEDS: Folic Acid 1 MG Tablet PO SCH (08:17)
[2018-04-22] MEDS: Senna/Docusate Sodium 8.6/50 MG Tablet PO SCH ×2 (08:17→20:19)
[2018-04-22] MEDS: amLODIPine 5 MG Tablet PO SCH (08:17)
[2018-04-22] MEDS ORDERED: Naloxone Inj 0.4 MG/ML Vial IV.PUSH PRN (13:38)
--- NOTE | 2018-04-22 14:57 | P.PNIM ---
Subjective Interval history: Patient is seen in room. He reports that he can abdominal pain and that it is about the same. He is tolerating regular food but finds that he is not very hungry. No vomiting. Not having any significant bowel movements however he does attribute this to not eating very much food. Physical Exam Vital signs: Vital Signs 04/21/18 16:00 04/21/18 20:11 04/21/18 21:12 Temperature 98.5 F 98.3 F Pulse Rate 70 67 Respiratory Rate 22 16 18 Blood Pressure 161/81 H 167/84 H Pulse Oximetry 97 97 04/21/18 23:39 04/22/18 02:16 04/22/18 08:00 Temperature 98.3 F 98.5 F Pulse Rate 84 99 H Respiratory Rate 17 17 18 Blood Pressure 159/77 H 133/77 Pulse Oximetry 97 98 04/22/18 12:00 Temperature 97.8 F Pulse Rate 82 Respiratory Rate 18 Blood Pressure 171/88 H Pulse Oximetry 98 Intake & Output 04/21/18 04/22/18 04/22/18 18:59 06:59 18:59 Intake Total 1440 / 1440 Balance 1440 / 1440 Weight 62.1 kg Intake: Oral 1440 / 1440 Other: # Voids 5 7 Date of Last Bowel Movement 04/20/18 04/22/18 # Bowel Movements 0 Narrative: GENERAL: Well-nourished, well-developed adult male in no obvious distress. SKIN: Focused assessment: Warm and dry. HEAD: Atraumatic. Normocephalic. CARDIOVASCULAR: Regular rate and rhythm. RESPIRATORY: No accessory muscle use. Clear to auscultation. Breath sounds equal bilaterally. GASTROINTESTINAL: Abdomen mildly distended. Tenderness through epigastric area and right upper quadrant. Positive bowel sounds. MUSCULOSKELETAL: Extremities without clubbing, cyanosis, or edema. No obvious deformities. NEUROLOGICAL: Awake and alert. No obvious cranial nerve deficits. Motor grossly within normal limits. Normal speech. Results Labs CBC & Chem 7: 04/16/18 06:53 04/17/18 05:55 Imaging Imaging: Impressions Abdomen MRI 04/21/18 00:00 CONCLUSION: 1. Prominent cyst in the pancreatic head which has enlarged. The patient also continues to have a smaller cysts seen anterior to the pancreatic body and dilatation the pancreatic duct. These are thought to be secondary to chronic pancreatitis. 2. Benign cystic change seen at the kidneys. 3. Nonspecific mildly prominent lymph nodes in the left retroperitoneum which are unchanged. Assessment and Plan (1) Acute on chronic pancreatitis: Code(s): K85.90 - Acute pancreatitis without necrosis or infection, unspecified; K86.1 - Other chronic pancreatitis Status: Acute (2) Alcohol abuse: Code(s): F10.10 - Alcohol abuse, uncomplicated Status: Acute (3) Liver cirrhosis: Code(s): K74.60 - Unspecified cirrhosis of liver Status: Chronic (4) Non-compliance: Code(s): Z91.19 - Patient's noncompliance with other medical treatment and regimen Status: Acute Plan This is a 63-year-old male with history of chronic pancreatitis, on Creon, cirrhosis, alcoholism, with multiple hospitalizations, presents for evaluation of epigastric abdominal pain. He reports that he has chronic epigastric abdominal pain secondary to his pancreatitis, worse this morning, which prompted evaluation. His api developer is Dr. Gallegos. He reports that he last drank alcohol yesterday, 5 PM, 4-5 beers. Patient says however he cut down on alcohol and he is drinking only in the morning. Continues to smoke daily. Acute on chronic pancreatitis secpndary to ETOH abuse On creon Hx of pancreatic pseudocyst -Continue with IV fluids,100 an hour. Stopped 04/19 -patient able to take adequate p.o. -Lipase initially trending down, then increased. Pain not decreasing. Consult placed to GI; appreciate assistance -Repeat MRI indicated main pancreatic cyst has increased significantly in size -tolerating normal diet; minimal appetite Continue antiemetics as needed continue to wean pain meds -Now taking Creon as ordered; initially refused despite counseling. EtOH abuse, last drink was Tuesday, typically drinks 5-6 beers a day. -[facility] protocol -Monitor for withdrawal symptoms -Continue folic acid and thiamine -Patient has been counseled about alcohol abuse Constipation-resolved Endorses no BM for for 5 days Continue with lactulose, Dulcolax as needed, milk of mag as needed as well as senna as needed -had BM yesterday, continue to monitor Elevated blood pressure, up to 180s. No history of hypertension -Continue Vasotec 2.5 mg IV every 6 as needed -BP reviewed, mostly remaining in 170s- 180s, will add Norvasc 5 mg po daily. D/ W pt. States his BP is always ok at home. Reviewed previous admissions, BP 140s to 170s. He is agreeable with taking Norvasc. Consider the pain and agitation might be increasing baseline blood pressure. Chronic back and neck pain Patient on Percocet - 7.5mg QID Continue with pain management; will increase dose to Q4 due to new acute pain History of hepatitis C chronic History of liver cirrhosis chronic Fatty liver chronic Alcoholism -LFTs normal Alcohol abuse counseling -Needs to follow-up as outpatient with gastroenterology Hypokalemia Monitor and replace as indicated COPD without exacerbation -Ventolin inhaler 2 puffs every 4 as needed Tobacco abuse -Continue to encourage cessation; patient is aware that this contributes significantly to his frequent pancreatitis -Nicotine patch recommended. DVT prophylaxis ambulation SCD/teds Code Status: Full code Discharge Planning: Home when tolerating regular diet and lipase significantly reduce Progress Note: Quality VTE Deep Vein Thrombosis/Pulmonary Embolism Present on Admission: No _ (1) Liver cirrhosis Qualifiers: Hepatic cirrhosis type: alcoholic cirrhosis Ascites presence: unspecified Qualified Code(s): K70.30 - Alcoholic cirrhosis of liver without ascites
[2018-04-23] MEDS: [UNRECOGNIZED DRUG - REMARK] PO SCH ×3 (09:29→17:47)
[2018-04-23] MEDS: Folic Acid 1 MG Tablet PO SCH (09:29)
[2018-04-23] MEDS: Senna/Docusate Sodium 8.6/50 MG Tablet PO SCH ×2 (09:30→21:06)
[2018-04-23] MEDS: amLODIPine 5 MG Tablet PO SCH (09:30)
--- NOTE | 2018-04-23 16:39 | P.PNIM ---
Subjective Interval history: Patient still reporting abdominal pain. Tolerating his meals. No other concerns or complaints Physical Exam Vital signs: Vital Signs 04/22/18 20:00 04/23/18 00:00 04/23/18 07:55 Temperature 97.8 F 96.9 F L 97.6 F Pulse Rate 80 84 81 Respiratory Rate 18 18 16 Blood Pressure 187/93 H 149/92 H 162/85 H Pulse Oximetry 95 96 97 04/23/18 12:01 Temperature 97.7 F Pulse Rate 87 Respiratory Rate 16 Blood Pressure 159/76 H Pulse Oximetry 98 Intake & Output 04/22/18 04/23/18 04/23/18 18:59 06:59 18:59 Intake Total 720 / 720 120 / 120 Balance 720 / 720 120 / 120 Weight 62.5 kg Intake: Oral 720 / 720 120 / 120 Other: # Voids 5 6 Date of Last Bowel Movement 04/22/18 04/22/18 # Bowel Movements 0 Narrative: GENERAL: Well-nourished, well-developed adult male in no obvious distress. SKIN: Focused assessment: Warm and dry. HEAD: Atraumatic. Normocephalic. CARDIOVASCULAR: Regular rate and rhythm. RESPIRATORY: No accessory muscle use. Clear to auscultation. Breath sounds equal bilaterally. GASTROINTESTINAL: Abdomen mildly distended. Tenderness through epigastric area and right upper quadrant. Positive bowel sounds. MUSCULOSKELETAL: Extremities without clubbing, cyanosis, or edema. No obvious deformities. NEUROLOGICAL: Awake and alert. No obvious cranial nerve deficits. Motor grossly within normal limits. Normal speech. Results Labs CBC & Chem 7: 04/16/18 06:53 04/17/18 05:55 Assessment and Plan (1) Acute on chronic pancreatitis: Code(s): K85.90 - Acute pancreatitis without necrosis or infection, unspecified; K86.1 - Other chronic pancreatitis Status: Acute (2) Alcohol abuse: Code(s): F10.10 - Alcohol abuse, uncomplicated Status: Acute (3) Liver cirrhosis: Code(s): K74.60 - Unspecified cirrhosis of liver Status: Chronic (4) Non-compliance: Code(s): Z91.19 - Patient's noncompliance with other medical treatment and regimen Status: Acute Plan This is a 63-year-old male with history of chronic pancreatitis, on Creon, cirrhosis, alcoholism, with multiple hospitalizations, presents for evaluation of epigastric abdominal pain. He reports that he has chronic epigastric abdominal pain secondary to his pancreatitis, worse this morning, which prompted evaluation. His sofa back upholsterer is Dr. Gallegos. He reports that he last drank alcohol yesterday, 5 PM, 4-5 beers. Patient says however he cut down on alcohol and he is drinking only in the morning. Continues to smoke daily. Acute on chronic pancreatitis secpndary to ETOH abuse On creon Hx of pancreatic pseudocyst -Continue with IV fluids,100 an hour. Stopped 04/19 -patient able to take adequate p.o. -Lipase initially trending down, then increased. Pain not decreasing. Consult placed to GI; appreciate assistance -Repeat MRI indicated main pancreatic cyst has increased significantly in size -May possibly be outpatient follow-up versus inpatient treatment; awaiting GI recommendation -tolerating normal diet; minimal appetite Continue antiemetics as needed continue to wean pain meds; IV pain meds now stopped. Patient probably will need to be discharged on higher amounts of narcotics than his usual chronic pain medication doses until increased cyst size is addressed -Now taking Creon as ordered; initially refused despite counseling. EtOH abuse, last drink was Tuesday, typically drinks 5-6 beers a day. -[facility] protocol -Monitor for withdrawal symptoms -Continue folic acid and thiamine -Patient has been counseled about alcohol abuse Constipation-resolved Endorses no BM for for 5 days Continue with lactulose, Dulcolax as needed, milk of mag as needed as well as senna as needed -had BM yesterday, continue to monitor Elevated blood pressure, up to 180s. No history of hypertension -Continue Vasotec 2.5 mg IV every 6 as needed -BP reviewed, mostly remaining in 170s- 180s, will add Norvasc 5 mg po daily. D/ W pt. States his BP is always ok at home. Reviewed previous admissions, BP 140s to 170s. He is agreeable with taking Norvasc. Consider the pain and agitation might be increasing baseline blood pressure. Chronic back and neck pain Patient on Percocet - 7.5mg QID Continue with pain management; will increase dose to Q4 due to new acute pain History of hepatitis C chronic History of liver cirrhosis chronic Fatty liver chronic Alcoholism -LFTs normal Alcohol abuse counseling -Needs to follow-up as outpatient with gastroenterology Hypokalemia Monitor and replace as indicated COPD without exacerbation -Ventolin inhaler 2 puffs every 4 as needed Tobacco abuse -Continue to encourage cessation; patient is aware that this contributes significantly to his frequent pancreatitis -Nicotine patch recommended. DVT prophylaxis ambulation SCD/teds Code Status: Full code Discharge Planning: Home when tolerating regular diet and lipase significantly reduce Progress Note: Quality VTE Deep Vein Thrombosis/Pulmonary Embolism Present on Admission: No _ (1) Liver cirrhosis Qualifiers: Hepatic cirrhosis type: alcoholic cirrhosis Ascites presence: unspecified Qualified Code(s): K70.30 - Alcoholic cirrhosis of liver without ascites
[2018-04-23 20:54] VITALS: O2SAT 98
[2018-04-24] MEDS: [UNRECOGNIZED DRUG - REMARK] PO SCH (08:47)
[2018-04-24] MEDS: Senna/Docusate Sodium 8.6/50 MG Tablet PO SCH (08:47)
[2018-04-24] MEDS: Folic Acid 1 MG Tablet PO SCH (08:47)
[2018-04-24] MEDS: amLODIPine 5 MG Tablet PO SCH (08:47)
[2018-04-24 09:14] VITALS: BP 155/77; PULSE 76; RESP 17; TEMP 97.5
--- NOTE | 2018-04-24 10:02 | P.PNVS ---
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 Full consult TF Thanks J Objective Vital Signs / I&O: Vital Signs 04/23/18 12:01 04/23/18 16:26 04/23/18 19:40 Temperature 97.7 F 98.0 F 98.5 F Pulse Rate 87 77 86 Respiratory Rate 16 16 18 Blood Pressure 159/76 H 157/70 H 157/75 H Pulse Oximetry 98 97 98 04/23/18 20:00 04/23/18 23:45 04/24/18 08:00 Temperature 97.9 F 97.5 F L Pulse Rate 66 76 Respiratory Rate 18 18 17 Blood Pressure 153/76 H 155/77 H Pulse Oximetry 98 98 Intake & Output 04/23/18 04/24/18 04/24/18 18:59 06:59 18:59 Intake Total 260 / 260 Balance 260 / 260 Weight 61.8 kg Intake: Oral 260 / 260 Other: # Voids 3 5 Date of Last Bowel Movement 04/23/18 # Bowel Movements 1 0
--- NOTE | 2018-04-24 10:10 | P.PNIM ---
Subjective Interval history: Patient seen ambulating in hallway and in room. He tells me he can normal pain but it has stabilized. Not having any problems tolerating meals. He is very anxious to be discharged today. He feels that he would prefer to follow-up as an outpatient rather than stay in the hospital at this time. Physical Exam Vital signs: Vital Signs 04/23/18 12:01 04/23/18 16:26 04/23/18 19:40 Temperature 97.7 F 98.0 F 98.5 F Pulse Rate 87 77 86 Respiratory Rate 16 16 18 Blood Pressure 159/76 H 157/70 H 157/75 H Pulse Oximetry 98 97 98 04/23/18 20:00 04/23/18 23:45 04/24/18 08:00 Temperature 97.9 F 97.5 F L Pulse Rate 66 76 Respiratory Rate 18 18 17 Blood Pressure 153/76 H 155/77 H Pulse Oximetry 98 98 Intake & Output 04/23/18 04/24/18 04/24/18 18:59 06:59 18:59 Intake Total 260 / 260 Balance 260 / 260 Weight 61.8 kg Intake: Oral 260 / 260 Other: # Voids 3 5 Date of Last Bowel Movement 04/23/18 # Bowel Movements 1 0 Narrative: GENERAL: Well-nourished, well-developed adult male in no obvious distress. SKIN: Focused assessment: Warm and dry. HEAD: Atraumatic. Normocephalic. CARDIOVASCULAR: Regular rate and rhythm. RESPIRATORY: No accessory muscle use. Clear to auscultation. Breath sounds equal bilaterally. GASTROINTESTINAL: Abdomen mildly distended. Tenderness through epigastric area and right upper quadrant. Positive bowel sounds. MUSCULOSKELETAL: Extremities without clubbing, cyanosis, or edema. No obvious deformities. NEUROLOGICAL: Awake and alert. No obvious cranial nerve deficits. Motor grossly within normal limits. Normal speech. Results Labs CBC & Chem 7: 04/16/18 06:53 04/17/18 05:55 Assessment and Plan (1) Acute on chronic pancreatitis: Code(s): K85.90 - Acute pancreatitis without necrosis or infection, unspecified; K86.1 - Other chronic pancreatitis Status: Acute (2) Alcohol abuse: Code(s): F10.10 - Alcohol abuse, uncomplicated Status: Acute (3) Liver cirrhosis: Code(s): K74.60 - Unspecified cirrhosis of liver Status: Chronic (4) Non-compliance: Code(s): Z91.19 - Patient's noncompliance with other medical treatment and regimen Status: Acute Plan This is a 63-year-old male with history of chronic pancreatitis, on Creon, cirrhosis, alcoholism, with multiple hospitalizations, presents for evaluation of epigastric abdominal pain. He reports that he has chronic epigastric abdominal pain secondary to his pancreatitis, worse this morning, which prompted evaluation. His fill plant operator is Dr. Gallegos. He reports that he last drank alcohol yesterday, 5 PM, 4-5 beers. Patient says however he cut down on alcohol and he is drinking only in the morning. Continues to smoke daily. Acute on chronic pancreatitis secpndary to ETOH abuse On creon Hx of pancreatic pseudocyst -Continue with IV fluids,100 an hour. Stopped 04/19 -patient able to take adequate p.o. -Lipase initially trending down, then increased. Pain not decreasing. Consult placed to GI and general surgery; appreciate assistance -Repeat MRI indicated main pancreatic cyst has increased significantly in size -May possibly be outpatient follow-up versus inpatient treatment; awaiting GI and general surgery recommendation -tolerating normal diet; minimal appetite Continue antiemetics as needed continue to wean pain meds; IV pain meds now stopped. Patient probably will need to be discharged on higher amounts of narcotics than his usual chronic pain medication doses until increased cyst size is addressed -Now taking Creon as ordered; initially refused despite counseling. EtOH abuse, last drink was Tuesday, typically drinks 5-6 beers a day. -[facility] protocol -Monitor for withdrawal symptoms -Continue folic acid and thiamine -Patient has been counseled about alcohol abuse Constipation-resolved Endorses no BM for for 5 days Continue with lactulose, Dulcolax as needed, milk of mag as needed as well as senna as needed -had BM yesterday, continue to monitor Elevated blood pressure, up to 180s. No history of hypertension -Continue Vasotec 2.5 mg IV every 6 as needed -BP reviewed, mostly remaining in 170s- 180s, will add Norvasc 5 mg po daily. D/ W pt. States his BP is always ok at home. Reviewed previous admissions, BP 140s to 170s. He is agreeable with taking Norvasc. Consider the pain and agitation might be increasing baseline blood pressure. Chronic back and neck pain Patient on Percocet - 7.5mg QID Continue with pain management; will increase dose due to new acute pain History of hepatitis C chronic History of liver cirrhosis chronic Fatty liver chronic Alcoholism -LFTs normal Alcohol abuse counseling -Needs to follow-up as outpatient with gastroenterology Hypokalemia Monitor and replace as indicated COPD without exacerbation -Ventolin inhaler 2 puffs every 4 as needed Tobacco abuse -Continue to encourage cessation; patient is aware that this contributes significantly to his frequent pancreatitis -Nicotine patch recommended. DVT prophylaxis ambulation SCD/teds Code Status: Full code Discharge Planning: May be discharged home if outpatient follow-up recommended by GI or general surgery. Progress Note: Quality VTE Deep Vein Thrombosis/Pulmonary Embolism Present on Admission: No _ (1) Liver cirrhosis Qualifiers: Hepatic cirrhosis type: alcoholic cirrhosis Ascites presence: unspecified Qualified Code(s): K70.30 - Alcoholic cirrhosis of liver without ascites
--- NOTE | 2018-04-24 11:13 | P.PNGI ---
Subjective Interval history: Pt seen in the [address], wants to go home. MRI reviewed, and discussed with pt in detail. no fever or chill, abdo pain controlled Physical Exam Vital signs: Vital Signs 04/23/18 12:01 04/23/18 16:26 04/23/18 19:40 Temperature 97.7 F 98.0 F 98.5 F Pulse Rate 87 77 86 Respiratory Rate 16 16 18 Blood Pressure 159/76 H 157/70 H 157/75 H Pulse Oximetry 98 97 98 04/23/18 20:00 04/23/18 23:45 04/24/18 08:00 Temperature 97.9 F 97.5 F L Pulse Rate 66 76 Respiratory Rate 18 18 17 Blood Pressure 153/76 H 155/77 H Pulse Oximetry 98 98 Intake & Output 04/23/18 04/24/18 04/24/18 18:59 06:59 18:59 Intake Total 260 / 260 Balance 260 / 260 Weight 61.8 kg Intake: Oral 260 / 260 Other: # Voids 3 5 Date of Last Bowel Movement 04/23/18 # Bowel Movements 1 0 - Constitutional no acute distress - Routine HEENT Exam Head: Present: normocephalic Eye: Present: EOMI - Routine Neck Exam Present: supple - Routine Respiratory Exam Present: CTA bilaterally - Routine Cardiovascular Exam Present: RRR - Routine Abdominal Exam Present: soft, normoactive bowel sounds - Routine Skin Exam Present: intact - Routine Neurological Exam Present: alert, oriented X3 Results - Labs CBC & Chem 7: 04/16/18 06:53 04/17/18 05:55 Assessment and Plan - Plan IMP: 1. acute on Chronic pancreatitis 2. Pseudocyst in head and body of panc 3. Abdo pain due to pancreatitis PLAN: 1. Pt has a plan for EUS with drainage of pseudocyst and celiac plexus block with me 2. I do not believe surgical intervention is necessary at this time. (these pseudocyst can be managed via endoscopically) 3. No objection to discharge from GI stand point.
--- NOTE | 2018-04-24 11:23 | P.DS ---
DS: Providers Date of admission: 04/15/18 13:38 Primary care physician: Deandre Ma MD Consults: 04/16/18 16:43 HUB Only Consult Order Routine Consulting Provider: Analy Beckford 04/21/18 13:04 Consult to Gastroenterology Routine Consulting Provider: Jillian Gallegos Patient known to:: Jillian Gallegos Reason for Consultation: Lipase with persistent elevation and uncontrollable pain Notified:: Office Spoke with:: alta Date Notified:: 04/21/18 Time Notified:: 13:21 Ordering Provider: JARETH DS: Diagnosis Discharge Diagnosis (1) Acute on chronic pancreatitis: Status: Acute (2) Alcohol abuse: Status: Acute (3) Liver cirrhosis: Status: Chronic (4) Non-compliance: Status: Acute DS: Summary This is a 63-year-old male with history of chronic pancreatitis, on Creon, cirrhosis, alcoholism, with multiple hospitalizations, presents for evaluation of epigastric abdominal pain. He reports that he has chronic epigastric abdominal pain secondary to his pancreatitis, worse this morning, which prompted evaluation. His ancillary specialist is Dr. Gallegos. He reports that he last drank alcohol yesterday, 5 PM, 4-5 beers. Patient says however he cut down on alcohol and he is drinking only in the morning. Continues to smoke daily. Patient was extensively counseled about stopping both smoking and drinking. He understands that both of these contribute to his pancreatic pain and inflammation. Acute on chronic pancreatitis secpndary to ETOH abuse Hx of pancreatic pseudocyst. Repeat MRI indicated main pancreatic cyst has increased significantly in size. GI recommending outpatient follow-up with EUS / drainage as well as celiac plexus block. Patient refused surgical consult as he would rather do outpatient follow-up. Patient treated with supportive care: IVF, antibiotics and pain control. Initially on clear diet but eventually able to tolerate regular meals. Lipase initially trending down, then increased -will likely remain elevated until cyst is addressed. Pain remains higher than previous due to increase his size. Now taking Creon as ordered; initially refused despite counseling. While hospitalized patient was noted to have elevated blood pressure, up to 180s. No history of hypertension. -BP reviewed, mostly remaining in 170s- 180s, will add Norvasc 5 mg po daily. D/ W pt. States his BP is always ok at home. Reviewed previous admissions, BP 140s to 170s. He is agreeable with taking Norvasc. Consider the pain and agitation might be increasing baseline blood pressure. Chronic back and neck pain Patient on Percocet - 7.5mg QID E force database reviewed History of hepatitis C chronic History of liver cirrhosis chronic Fatty liver chronic Alcoholism -LFTs normal Alcohol abuse counseling -Needs to follow-up as outpatient with gastroenterology Time Spent with Patient Total time spent providing and/or coordinating discharge services: Greater than 30 minutes Status at Discharge Functional status at discharge: independent ambulation Overall status at discharge: patient is back to baseline Quality: VTE Deep Vein Thrombosis/Pulmonary Embolism Present on Admission: No Exam Narrative Exam Narrative: GENERAL: Well-nourished, well-developed adult male in no obvious distress. SKIN: Focused assessment: Warm and dry. HEAD: Atraumatic. Normocephalic. CARDIOVASCULAR: Regular rate and rhythm. RESPIRATORY: No accessory muscle use. Clear to auscultation. Breath sounds equal bilaterally. GASTROINTESTINAL: Abdomen mildly distended. Tenderness through epigastric area and right upper quadrant. Positive bowel sounds. MUSCULOSKELETAL: Extremities without clubbing, cyanosis, or edema. No obvious deformities. NEUROLOGICAL: Awake and alert. No obvious cranial nerve deficits. Motor grossly within normal limits. Normal speech. Results Impressions ITS Impressions Abdomen MRI 04/21/18 00:00 CONCLUSION: 1. Prominent cyst in the pancreatic head which has enlarged. The patient also continues to have a smaller cysts seen anterior to the pancreatic body and dilatation the pancreatic duct. These are thought to be secondary to chronic pancreatitis. 2. Benign cystic change seen at the kidneys. 3. Nonspecific mildly prominent lymph nodes in the left retroperitoneum which are unchanged. Discharge Plan Discharge Disposition Patient Disposition: 01 Discharge Home Discharge Condition Condition: Stable Discharge Order Discharge Orders: Discharge Order (Routine); Ordered 04/24/18 Ordered By: Leatha Jon Discharge Details Anticipated Discharge Date: 04/24/18 Physicians Team Primary Care Provider: Deandre Ma Attending Provider: Esmer Murphy Other Providers: Analy Beckford ; Jillian Gallegos ; Levy Norman ; Haseeb Potter ; [employer] ; Victoriano Li ; Yaima Phelps ; Se Groves ; Herlinda Amezcua ; Nelida Salamanca ; Clyde Dukes Rxs /Orders / Referrals /Forms Prescriptions: New amlodipine [Norvasc] 5 mg Tablet 5 mg PO DAILY Qty: 30 RF: 0 Continue hydrocodone-acetaminophen 7.5-325 mg Tablet 1 tab PO Q4H PRN (Reason: Pain) RF: 0 omeprazole 40 mg Capsule,Delayed Release(Dr/Ec) 40 mg PO DAILY RF: 0 albuterol sulfate [Ventolin HFA] 90 mcg/actuation Hfa Aerosol Inhaler 2 puff INHALATION Q4-6H PRN (Reason: Shortness Of Breath) RF: 0 [id number] [Creon] 3,000-9,500- 15,000 unit Capsule,Delayed Release(Dr/Ec) 3,000 units/day PO TIDAC RF: 0 Referrals: Jillian Gallegos MD [Physician] - See Instructions Discharge Instructions Patient Printed Instructions: Amlodipine (By mouth), How to Stop Smoking (GEN) , Pancreatitis (DC), Pancreatic Pseudocyst (GEN) Post Discharge Care Plan Care Plan Goals: Your Health Problems: Goals to Promote Your Health: * To prevent worsening of your condition * To maintain your health at the optimal level Directions to Meet Your Goals: * Take your medications as prescribed * Follow your dietary instruction * Follow activity as directed * Keep your appointments as scheduled * Take your immunizations and boosters as scheduled * If your symptoms worsen call your PCP * If no PCP go to Urgent Care or Emergency Room Smoking is dangerous to your health. Avoid second hand smoke. You may reach the 24-hour crisis hotline for domestic abuse at . Status ED Status: Left Department
== END 2018-04-24 11:40 | disposition home or self-care (01) | DRG 439 ==
LOC: NEPE 11:21 → NEDA 13:38 → N06 16:19
PROVIDERS: ADMIT Internal Medicine; ATTEND Internal Medicine
DX: K59.03 Drug induced constipation; J44.9 Chronic obstructive pulmonary disease, unspecified; G89.29 Other chronic pain; K85.20 Alcohol induced acute pancreatitis without necrosis or infection; Z91.19 Patient's noncompliance with other medical treatment and regimen; F17.210 Nicotine dependence, cigarettes, uncomplicated; F10.20 Alcohol dependence, uncomplicated; K70.30 Alcoholic cirrhosis of liver without ascites; K86.0 Alcohol-induced chronic pancreatitis; K86.3 Pseudocyst of pancreas; B18.2 Chronic viral hepatitis C; R03.0 Elevated blood-pressure reading, without diagnosis of hypertension; Z88.5 Allergy status to narcotic agent; Z80.0 Family history of malignant neoplasm of digestive organs; K52.9 Noninfective gastroenteritis and colitis, unspecified; E87.6 Hypokalemia; K76.0 Fatty (change of) liver, not elsewhere classified; M54.2 Cervicalgia; I72.8 Aneurysm of other specified arteries; T40.605A Adverse effect of unspecified narcotics, initial encounter; K86.2 Cyst of pancreas
CPT/HCPCS: 74183; 80048; 80053; 81001; 83690; 83735; 85025; 90761; 90774; 90775; 90784; 96361; 96374; 96375; 99285; A9585; C8952; C9113; J2270; J2405; J7030